=== PATIENT | male | born 1965 | race Caucasian/White ===

== ENCOUNTER 2018-03-27 02:47 | Outpatient (CLI) | payer MEDICAID, SELFPAY ==
[2018-03-27 11:38] LABS: Hemoglobin A1C 7.2 % (4.5-6.2)
[2018-03-27 11:54] LABS: Cholesterol 140 mg/dL (50-200); HDL Cholesterol 40 mg/dL (40-60); LDL CHOLESTEROL 85 mg/dL (<100); Triglyceride 116 mg/dL (30-150)
== END 2018-03-27 03:07 ==
PROVIDERS: PCP Emergency Medicine; Visit Provider Emergency Medicine
DX: E11.9 Type 2 diabetes mellitus without complications (principal)
CPT/HCPCS: 36415; 80061; 83721; 83036

== ENCOUNTER 2018-08-18 10:52 | Outpatient (CLI) | payer MEDICAID, SELFPAY ==
[2018-08-18 12:57] LABS: Hemoglobin A1C 8.2 % (4.5-6.2)
[2018-08-18 13:03] LABS: Anion Gap 5.7 mmol/L (3-11); BUN 16 mg/dL (7-18); CO2 31.3 mmol/L (21.0-32.0); CREATININE 1.09 mg/dL (0.70-1.30); Calcium 9.1 mg/dL (8.5-10.1); Chloride 102 mmol/L (98-107); Glucose 224 mg/dL (70-100); Potassium 4.3 mmol/L (3.5-5.1); Sodium 139 mmol/L (136-145)
== END 2018-08-18 11:12 ==
PROVIDERS: PCP Emergency Medicine; Visit Provider Emergency Medicine
DX: E11.9 Type 2 diabetes mellitus without complications (principal); I10 Essential (primary) hypertension
CPT/HCPCS: 36415; 80048; 83036

== ENCOUNTER 2018-10-07 22:29 | Emergency (ER) | payer MEDICAID, SELFPAY ==
[2018-10-07 22:32] VITALS: BP 159/80; PULSE 80; RESP 20; TEMP 36.7
--- NOTE | 2018-10-07 22:44 | DI.RAD_ITS ---
SYMPTOM/DIAGNOSIS: PAIN IN ANTERIOR 3RD OF FOOT AND ANKLE, CELLULITIS LEFT ANKLE AND LEFT FOOT: Three views of the ankle and three views of the foot were obtained. There is an incidental finding of a presumed bone island of the distal tibia. The ankle mortise appears fairly well maintained. Hypertrophic spurring of the Achilles attachment on the calcaneus noted. Mild degenerative changes of the mid foot and fore foot noted. No other significant bony abnormality is seen.
--- NOTE | 2018-10-07 22:46 | W.ED.GENAD ---
Discharge Plan Disposition Patient Disposition: HOME Condition: Good Discharge Details Chief Complaint: Cellulitis Clinical Impression: Cellulitis Primary Care Provider: Joshua Small ED Provider: Denys Sam Home Meds and New Rx's Prescriptions: New cephalexin [Keflex] 500 mg capsule 500 mg PO QID 10 Days Qty: 40 RF: 0 No Action Biotene Mouthwash 59 ML Btl 15 ml Mucous Membrane AC Qty: 180 RF: 12 sertraline 100 MG tablet 200 mg PO DAILY Qty: 180 RF: 3 amlodipine 5 mg tablet 5 mg PO DAILY Qty: 90 RF: 4 aspirin 325 mg tablet 325 mg PO DAILY Qty: 90 RF: 3 atorvastatin [Lipitor] 40 mg tablet 40 mg PO QPM Qty: 90 RF: 3 Blood Glucose Test strip 1 ea Miscellaneous QID Qty: 400 RF: 12 docusate sodium [Colace] 100 mg capsule 100 mg PO TID PRN PRN (Reason: constipation) Qty: 270 RF: 0 glipizide [Glucotrol XL] 5 mg tablet extended release 24hr 5 mg PO DAILY Qty: 90 RF: 3 hydrochlorothiazide 25 mg tablet 25 mg PO DAILY Qty: 90 RF: 4 lisinopril 40 mg tablet 40 mg PO DAILY Qty: 90 RF: 3 pen needle, diabetic [BD Ultra-Fine Orig Pen Needle] 29 gauge x 1/2 needle Miscellaneous QID Qty: 400 RF: 0 Novolog Flexpen U-100 Insulin 100 unit/mL insulin pen 5 unit Sub-Q 0800,1200,1700 Qty: 3 RF: 20 lancets 28 gauge misc 1 ea Miscellaneous QID Qty: 400 RF: 12 polyethylene glycol 3350 17 gram powder in packet 17 gm PO DAILY PRN PRN (Reason: constipation) Qty: 1 RF: 6 Lantus Solostar U-100 Insulin 100 unit/mL (3 mL) insulin pen 15 unit Sub-Q HS Qty: 3 RF: 20 Discharge Instructions Instructions: Cellulitis (ED) Additional Instructions: Please take the Keflex as directed. Keep your foot and ankle elevated as much as possible. It appears that you have an infection of your skin. If you notice spreading of the redness, please return immediately. If you notice any worsening of your symptoms, or any new symptoms such as vomiting, diarrhea, fever, chills, shortness of breath, chest pain, numbness, weakness, or fainting , please return immediately to the emergency department for reevaluation. Please follow up with your primary care provider as soon as possible for reassessment and reevaluation. As always, it was a pleasure participating in your medical care today. Referrals: Joshua Small, [Primary Care Provider] - Medical Decision Making This is a 53-year-old male with past medical history of diabetes, CVA with chronic left-sided weakness, who presents today for pain in his left foot his ankle and on the plantar aspect of his foot. He did have a piece of wood that fell and hit it 24 hours ago, he does demonstrate mild redness and warmth over the medial aspect of his left ankle, no evidence of pain out of proportion, cyanosis, abscess, or subcutaneous crepitus. Signs and symptoms inconsistent with next rash. Differential includes osseous abnormality versus mild cellulitis. Symptoms are inconsistent with gout. Symptoms are also consistent with a DVT with no calf tenderness, no history of clots. However ultrasound is unavailable due to the current time of night, I did offer transfer for formal ultrasonography, and the patient is declined this. Additionally I did offer her anticoagulation for the time being and the patient would like to hold off on any anticoagulation for the time being. He does take a daily aspirin. He understands risks of this decision. 11:19 PM X-ray results are negative per virtual radiology. Patient's pain is well controlled with Tylenol and Motrin. I did do a portable limited bedside ultrasound and I did not see any evidence of significant DVT, however made it clear to the patient that this is certainly not a complete evaluation he does require potential formal evaluation which she is requesting to hold off for the time being. We had a long discussion regarding red flags for which to promptly return and the patient understands signs and symptoms at this time appear clinically inconsistent with DVT or fracture, and consistent with mild cellulitis. With no significant MRSA risk factors, I feel that Keflex is reasonable to start. Additionally Bactrim would be potentially contraindicated with his ISABEL/our abuse and the concern for hyperkalemia. I have extensively reviewed the treatment plan and discharge instructions with the patient. I have addressed all patient concerns at this time. The patient was made aware of what symptoms to monitor for that would warrant a return to the emergency department. Discussed the plan with the patient, they demonstrate verbal understanding and agreement with our assessment and plan at this time. CLINICAL HISTORY: 53 years old, male; Left; Patient HX: Pain in anterior 3rd of foot and ankle, mild cellulitis TECHNIQUE: Imaging protocol: XR Left foot. Views: 3 or more views. COMPARISON: No relevant prior studies available. FINDINGS: Bones/joints: Typical for age. No evidence of acute fracture. Soft tissues: Unremarkable. IMPRESSION: No acute findings. Dictated and Authenticated by: Javier Hanna MD. Ordering:LEONARD Mcfarlane MD CLINICAL HISTORY: 53 years old, male; Left; Patient HX: Pain in anterior 3rd of foot and ankle, mild cellulitis TECHNIQUE: Imaging protocol: XR Left ankle. Views: 3 or more views. COMPARISON: No relevant prior studies available. FINDINGS: Bones/joints: Typical for age. No evidence of acute fracture. Soft tissues: Unremarkable. IMPRESSION: No acute findings. Dictated and Authenticated by: Javier Hanna MD. HPI General Date/Time Provider Initiated Documentation: 10/07/18 22:36. HPI Narrative: This is a 53-year-old male with a past medical history of a CVA with chronic left-sided weakness, diabetes mellitus, high cholesterol, hypertension, who presents today for left foot and ankle pain. The patient states that yesterday a piece of wood from his woodpile fell and hit his left foot/ankle. He has had mild pain since then, however it typically he is noticed that his notable pain when stepping down on the ball of his left foot, and he is also noticed some warmth, swelling, and redness around the left ankle. He denies any fever or chills. He denies any history of blood clots or DVTs. He does admit to a history of gout and states that this feels very different than that. He denies any other complaints or modifying factors. He denies recent antibiotic use. He denies any history of MRSA. Related Data Home Medications Medication Instructions Recorded Confirmed sertraline 200 mg PO DAILY #180 tab-cap 11/26/17 10/07/18 amlodipine 5 mg tablet 5 mg PO DAILY #90 tab-cap 03/20/18 10/07/18 aspirin 325 mg tablet 325 mg PO DAILY #90 tab 03/20/18 10/07/18 atorvastatin 40 mg tablet 40 mg PO QPM #90 tab 03/20/18 10/07/18 blood sugar diagnostic strips #400 strip 03/20/18 10/07/18 docusate sodium 100 mg capsule 100 mg PO TID PRN PRN #270 cap 03/20/18 10/07/18 glipizide ER 5 mg tablet, extended 5 mg PO DAILY #90 tab-cap 03/20/18 10/07/18 release 24 hr hydrochlorothiazide 25 mg tablet 25 mg PO DAILY #90 tab 03/20/18 10/07/18 insulin aspart U- 100 100 unit/mL 5 unit SUB-Q 0800,1200,1700 #3 ml 03/20/18 10/07/18 subcutaneous pen lancets 28 gauge #400 ea 03/20/18 10/07/18 lisinopril 40 mg tablet 40 mg PO DAILY #90 tab-cap 03/20/18 10/07/18 pen needle, diabetic 29 gauge x #400 03/20/18 10/07/18 1/2 polyethylene glycol 3350 17 gram 17 gm PO DAILY PRN PRN #1 dose pk 03/20/18 10/07/18 oral powder packet insulin glargine (U-100) 100 15 unit SUB-Q HS #3 ml 03/24/18 10/07/18 unit/mL (3 mL) subcutaneous pen cephalexin [Keflex] 500 mg PO QID 10 Days #40 cap 10/07/18 Previous Rx's Medication Instructions Recorded sertraline 200 mg PO DAILY #180 tab-cap 11/26/17 amlodipine 5 mg tablet 5 mg PO DAILY #90 tab-cap 03/20/18 aspirin 325 mg tablet 325 mg PO DAILY #90 tab 03/20/18 atorvastatin 40 mg tablet 40 mg PO QPM #90 tab 03/20/18 blood sugar diagnostic strips #400 strip 03/20/18 docusate sodium 100 mg capsule 100 mg PO TID PRN PRN #270 cap 03/20/18 glipizide ER 5 mg tablet, extended 5 mg PO DAILY #90 tab-cap 03/20/18 release 24 hr hydrochlorothiazide 25 mg tablet 25 mg PO DAILY #90 tab 03/20/18 insulin aspart U- 100 100 unit/mL 5 unit SUB-Q 0800,1200,1700 #3 ml 03/20/18 subcutaneous pen lancets 28 gauge #400 ea 03/20/18 lisinopril 40 mg tablet 40 mg PO DAILY #90 tab-cap 03/20/18 pen needle, diabetic 29 gauge x #400 03/20/18 1/2 polyethylene glycol 3350 17 gram 17 gm PO DAILY PRN PRN #1 dose pk 03/20/18 oral powder packet insulin glargine (U-100) 100 15 unit SUB-Q HS #3 ml 03/24/18 unit/mL (3 mL) subcutaneous pen cephalexin [Keflex] 500 mg PO QID 10 Days #40 cap 10/07/18 Allergies Allergy/AdvReac Type Severity Reaction Status Date / Time No Known Allergies Allergy Verified 10/07/18 22:37 General Stated Complaint: Cellulitis DOE: 4 Review of Systems Review of Systems All systems reviewed & are unremarkable except as noted in HPI and below PFSH Surgical History BACK (04/11/10) SHOULDER (02/07/10) Family History Mother No problems noted. Father No problems noted. Sister No problems noted. Sister No problems noted. Sister No problems noted. Sister No problems noted. 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 3.ENT: Atraumatic external nose and ears. Moist MM. Neck: Symmetric, trachea midline, No thyromegaly. 4.CVS: +S1/S2, No murmurs or gallops. Peripheral pulses 2+ and equal in all extremities. Brisk capillary refill in all extremities. 5.RESP: Unlabored respiratory effort. Clear to auscultation bilaterally. No wheezes rales or rhonchi 6.GI: Soft, Nontender/Nondistended, No hepatosplenomegaly. No guarding or rebound. 7.MSK: Normocephalic/Atraumatic, Extremities w/o deformity. No cyanosis or clubbing. Chronic weakness in the left upper and lower extremity. Sensation intact in lower extremity on the left and the right. Range of motion is limited secondary to the patient's chronic status. There is mild erythema over the medial aspect by the left ankle, mild warmth, minimal swelling, no pitting edema, no calf tenderness for the left or right calf. Minimal warmth on the foot, minimal redness over the plantar aspect of the foot. No evidence of significant focal lesion,, abscess, subcutaneous crepitus. Pain is not out of proportion. 8.Skin: Mild redness in the medial aspect of the foot, and no evidence of tophi. No evidence of subcutaneous crepitus. 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 Sensation grossly intact, chronic left upper and lower extremity weakness 10.Psych: (AAO) x3. Appropriate mood and affect Course Vital Signs Temperature 36.7 C 10/07/18 22:32 Pulse 80 10/07/18 22:32 Respiratory Rate 20 10/07/18 22:32 Blood Pressure 159/80 H 10/07/18 22:32 Temperature 36.7 C 10/07/18 22:32 Temperature Source Skin 10/07/18 22:32 Pulse 80 10/07/18 22:32 Respiratory Rate 20 10/07/18 22:32 Blood Pressure 159/80 H 10/07/18 22:32 Pain Level 7 10/07/18 22:32 Comment 10/07/18 22:32
[2018-10-07] MEDS: Cephalexin 500 MG CAP PO (22:50)
[2018-10-07] MEDS: Ibuprofen 800 MG TAB PO (22:50)
[2018-10-07] MEDS: Acetaminophen 500 MG TAB 1000 MG PO (22:50)
--- NOTE | 2018-10-07 23:13 | DI.VRAD_ITS ---
EXAM: XR Left Foot Complete, 3 or more Views EXAM DATE/TIME: 10/07/2018 10:46 PM CLINICAL HISTORY: 53 years old, male; Left; Patient HX: Pain in anterior 3rd of foot and ankle, mild cellulitis TECHNIQUE: Imaging protocol: XR Left foot. Views: 3 or more views. COMPARISON: No relevant prior studies available. FINDINGS: Bones/joints: Typical for age. No evidence of acute fracture. Soft tissues: Unremarkable. IMPRESSION: No acute findings. Dictated and Authenticated by: Javier Hanna MD. Ordering:LEONARD Mcfarlane MD
--- NOTE | 2018-10-07 23:13 | DI.VRAD_ITS ---
EXAM: XR Left Ankle Complete, 3 or more Views EXAM DATE/TIME: 10/07/2018 10:46 PM CLINICAL HISTORY: 53 years old, male; Left; Patient HX: Pain in anterior 3rd of foot and ankle, mild cellulitis TECHNIQUE: Imaging protocol: XR Left ankle. Views: 3 or more views. COMPARISON: No relevant prior studies available. FINDINGS: Bones/joints: Typical for age. No evidence of acute fracture. Soft tissues: Unremarkable. IMPRESSION: No acute findings. Dictated and Authenticated by: Javier Hanna MD. Ordering:LEONARD Mcfarlane MD
[2018-10-07 23:45] VITALS: BP 159/80; PULSE 80; RESP 20; O2SAT 96
== END 2018-10-07 23:33 | disposition home or self-care (01) ==
PROVIDERS: Emergency Provider Student in an Organized Health Care Education/Training Program; PCP Emergency Medicine
DX: L03.116 Cellulitis of left lower limb (principal); I69.354 Hemiplegia and hemiparesis following cerebral infarction affecting left non-dominant side; E11.9 Type 2 diabetes mellitus without complications; I10 Essential (primary) hypertension; Z79.4 Long term (current) use of insulin
CPT/HCPCS: 99284; 73610; 73630

== ENCOUNTER 2019-02-23 06:00 | Outpatient (CLI) | payer MEDICAID, SELFPAY ==
[2019-02-23 13:23] LABS: Anion Gap 11.1 mmol/L (3-11); BUN 23 mg/dL (7-18); CO2 27.9 mmol/L (21.0-32.0); CREATININE 1.46 mg/dL (0.70-1.30); Calcium 9.1 mg/dL (8.5-10.1); Chloride 99 mmol/L (98-107); Estimated GFR 50.13 (mL/min/1.73m2); Glucose 278 mg/dL (70-100); Potassium 3.9 mmol/L (3.5-5.1); Sodium 138 mmol/L (136-145)
[2019-02-23 16:14] LABS: Calculated LDL 45 mg/dL; Cholesterol 142 mg/dL (50-200); HDL Cholesterol 30 mg/dL (40-60); Triglyceride 338 mg/dL (30-150)
[2019-02-24 09:46] LABS: PSA, Diagnostic 0.2 ng/ml (0-3.5)
== END 2019-02-23 06:20 ==
PROVIDERS: PCP Emergency Medicine; Visit Provider Emergency Medicine
DX: E11.9 Type 2 diabetes mellitus without complications (principal); C61 Malignant neoplasm of prostate; R35.8 Other polyuria
CPT/HCPCS: 36415; 80048; 80061; 83036; 84153

== ENCOUNTER 2019-03-17 12:47 | Outpatient (CLI) | payer MEDICAID, SELFPAY ==
--- NOTE | 2019-03-17 14:22 | W.PREOPHP ---
Assessment and Plan Assessment and plan (1) Right carpal tunnel syndrome: Status: Acute Assessment and plan: Plan: Educated patient on surgery covering surgical technique, recovery process, benefits and risks including but not limited to risk of infection, blood clot, damage to soft tissue/blood vessels/nerves in detail. After discussion patient gives verbal understanding of risks and elects to proceed with scheduling surgery. Patient had opportunity to have questions answered to their satisfaction. They will contact office if issues arise. Patient will continue to be scheduled for right ECTR with Dr. Kim. History of Present Illness Narrative: Mr. Pak is a 53-year-old male who presents to clinic for pre-operative visit for scheduled right ECTR. Patient suffered a stroke that affected his left side. Due to his stroke he uses his right hand for most activity. Has been experiencing numbness and tingling in his right hand for the last 6 months. 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 Denies trauma to the right hand. He had not tried nighttime bracing, however he did have nerve conduction studies which as per Elsy Mojica PUBLIC HEALTH ADMINISTRATOR note showed severe right carpal tunnel syndrome. Due to his impairment and severe symptoms he was offered surgical intervention and elected to proceed. Pertinent Surgical Information Denies past medical history of: cardiac issues, angina, asthma, COPD, sleep apnea, renal issues, liver issues, hepatitis, gastrointestinal issues, ulcers, bleeding disorders, seizures, migraines, autoimmune disorders, thyroid issues. Denies prior complications from surgery or anesthesia. Review of Systems Constitutional Constitutional: Denies fever(s), Denies frequent falls and Denies headache(s) Eyes Eyes: Denies change in vision ENT Ears, Nose, Mouth, and Throat: Denies dizziness, Denies ear discharge, Denies headache(s), Denies epistaxis, Denies nasal discharge and Denies sore throat Cardiovascular Cardiovascular: Denies chest pain, Denies rapid heart rate, Denies irregular heart rhythm, Denies dyspnea, Denies dyspnea on exertion, Denies orthopnea, Denies paroxysmal nocturnal dyspnea and Denies slow heart rate Respiratory Respiratory: Denies cough, Denies dyspnea, Denies dyspnea on exertion and Denies wheezing Gastrointestinal Gastrointestinal: Denies abdominal pain, Denies melena, Denies hematochezia, Denies constipation, Denies diarrhea, Denies nausea and Denies vomiting Genitourinary Genitourinary: Denies hematuria, Denies dysuria and Denies urinary urgency Musculoskeletal Musculoskeletal: Reports as per HPI, Reports numbness and Reports tingling Neurologic Neurologic: Denies dizziness, Denies frequent falls, Denies headache(s), Reports numbness and Reports tingling Psychiatric Psychiatric: Reports anxiety and Reports depression Allergic/Immunologic Allergic/Immunologic: Denies wheezing [facility] Medical History (Updated 03/17/19 @ 14:31 by Reva Stephen) Anxiety (Chronic) Cerebrovascular accident (CVA) (Chronic 03/19/17) Left hemiparesis 01/23 Depression (Chronic) Essential hypertension (Acute) History of alcoholism (Acute) and drug abuse; at age 28-30 Hyperlipidemia (Acute) Type 2 diabetes mellitus (Chronic) Surgical History (Updated 03/17/19 @ 14:30 by Reva Stephen) History of shoulder surgery (Inactive) One right shoulder Two left shoulder History of spinal surgery (Inactive) Social History (Updated 03/17/19 @ 14:33 by Reva Stephen) Smoking/Tobacco Use Status: Former Tobacco Use Alcohol Intake: former Drug use: Never Substance use type: does not use Number of Children: 8 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 Current gender identity: male Do you feel safe at home: Yes Do you feel safe in your relationship?: Yes Meds Home Medications and Allergies Home Medications Medication Instructions Recorded Confirmed Type Biotene Mouthwash 15 ml MUCOUS MEMBRANE AC #180 03/05/17 03/17/19 Clinic bottle amlodipine 5 mg tablet 5 mg PO DAILY #90 tab-cap 03/20/18 03/17/19 Rx aspirin 325 mg tablet 325 mg PO DAILY #90 tab 03/20/18 03/17/19 Rx atorvastatin 40 mg tablet 40 mg PO QPM #90 tab 03/20/18 03/17/19 Rx blood sugar diagnostic #400 strip 03/20/18 03/17/19 Rx docusate sodium 100 mg capsule 100 mg PO TID PRN PRN #270 cap 03/20/18 03/17/19 Rx glipizide 5 mg tablet, extended 5 mg PO DAILY #90 tab-cap 03/20/18 03/17/19 Rx release 24 hr hydrochlorothiazide 25 mg tablet 25 mg PO DAILY #90 tab 03/20/18 03/17/19 Rx lancets 28 gauge #400 ea 03/20/18 03/17/19 Rx lisinopril 40 mg tablet 40 mg PO DAILY #90 tab-cap 03/20/18 03/17/19 Rx pen needle, diabetic 29 gauge x #400 03/20/18 03/17/19 Rx 1/2 polyethylene glycol 3350 17 gram 17 gm PO DAILY PRN PRN #1 dose pk 03/20/18 03/17/19 Rx oral powder packet sertraline 100 mg tablet 200 mg PO DAILY #180 tab-cap 12/02/18 03/17/19 Rx insulin aspart U-100 100 unit/mL 5 unit SUB-Q 0800,1200,1700 #15 ml 02/23/19 03/17/19 Rx (3 mL) subcutaneous pen insulin glargine 100 unit/mL (3 15 unit SUB-Q HS #15 ml 02/23/19 03/17/19 Rx mL) subcutaneous pen Allergies Allergy/AdvReac Type Severity Reaction Status Date / Time No Known Allergies Allergy Verified 03/17/19 14:34 Exam Const General: cooperative and no acute distress [facility] Head: normal to inspection, normocephalic and atraumatic Ears: external ears normal General nose exam: external nose normal and no nasal discharge Face and sinus: face symmetric Mouth: oral mucosae normal, lip normal, tongue normal and moist mucous membranes Teeth and gingiva: poor dentition (patient has a few teeth remaining) Throat: posterior oropharynx normal Eyes General: appearance normal, both eyes and all related structures Pupils: PERRL EOM: EOM intact bilaterally Neck Neck: trachea midline Carotids: normal carotid upstroke Lymphatic: no lymphadenopathy noted Resp Effort & Inspection: normal respiratory effort and able to speak in complete sentences Auscultation: clear to auscultation bilaterally, no rales, no rhonchi and no wheezes Cardio Heart Sounds: S1 normal, S2 normal and no murmurs Pulses: radial pulses present bilaterally Skin General skin exam: no rashes or lesions noted
== END 2019-03-17 13:07 ==
PROVIDERS: PCP Emergency Medicine; Visit Provider Student in an Organized Health Care Education/Training Program
DX: G56.01 Carpal tunnel syndrome, right upper limb (principal); I10 Essential (primary) hypertension; Z01.818 Encounter for other preprocedural examination
CPT/HCPCS: NC

== ENCOUNTER 2019-03-23 12:00 | Day surgery (SDC) | payer MEDICAID, SELFPAY ==
[2019-03-23 12:30] VITALS: BP 144/94; PULSE 75; RESP 16; TEMP 35.9; O2SAT 98
[2019-03-23] MEDS: Lactated Ringers 1,000 ML 80 ML IV (13:07)
[2019-03-23] MEDS: ceFAZolin 2 GM/50 ML BAG IVPB (13:50)
--- NOTE | 2019-03-23 13:52 | PDOC.DSDIS_ITS ---
Discharge Plan Disposition Patient Disposition: HOME Condition: Good Discharge Details Reason For Visit: Right ECTR Attending Provider: Steve Kim Primary Care Provider: Joshua Small Home Meds and New Rx's Prescriptions: New acetaminophen 500 mg tablet 500 mg PO Q6H PRNQty: 30 RF: 0 ibuprofen 600 mg tablet 600 mg PO TID PRN (Reason: pain) Qty: 30 RF: 0 Continued Novolog Flexpen U-100 Insulin 100 unit/mL (3 mL) insulin pen 5 unit Sub-Q 0800,1200,1700 Qty: 15 RF: 20 Lantus Solostar U-100 Insulin 100 unit/mL (3 mL) insulin pen 15 unit Sub-Q HS Qty: 15 RF: 20 Biotene Mouthwash 59 ML Btl 15 ml Mucous Membrane AC Qty: 180 RF: 12 amlodipine 5 mg tablet 5 mg PO DAILY Qty: 90 RF: 4 aspirin 325 mg tablet 325 mg PO DAILY Qty: 90 RF: 3 atorvastatin [Lipitor] 40 mg tablet 40 mg PO QPM Qty: 90 RF: 3 (DME) Blood Glucose Test strip 1 ea Miscellaneous QID Qty: 400 RF: 12 docusate sodium [Colace] 100 mg capsule 100 mg PO TID PRN PRN (Reason: constipation) Qty: 270 RF: 0 glipizide [Glucotrol XL] 5 mg tablet extended release 24hr 5 mg PO DAILY Qty: 90 RF: 3 hydrochlorothiazide 25 mg tablet 25 mg PO DAILY Qty: 90 RF: 4 lisinopril 40 mg tablet 40 mg PO DAILY Qty: 90 RF: 3 (DME) pen needle, diabetic [BD Ultra-Fine Orig Pen Needle] 29 gauge x 1/2 needle Miscellaneous QID Qty: 400 RF: 0 (DME) lancets 28 gauge misc 1 ea Miscellaneous QID Qty: 400 RF: 12 polyethylene glycol 3350 17 gram powder in packet 17 gm PO DAILY PRN PRN (Reason: constipation) Qty: 1 RF: 6 sertraline 100 mg tablet 200 mg PO DAILY Qty: 180 RF: 3 Discharge Instructions Stand Alone Forms: Julio Valerio Tunnel Release Referrals: Steve Kim MD [ [facility] STAFF PHYSICIAN] - Activity:: Activity as Tolerated Remove Dressings/Wound Care:: 48 hours Shower/Bathe:: 48 hours Diet:: As Tolerated Discharge Orders Discharge Orders: Discharge Order (Routine); Ordered 03/23/19 Ordered By: Albert Pham DS: Diagnosis Discharge Diagnosis (1) Right carpal tunnel syndrome: Status: Acute
[2019-03-23] MEDS: Lidocaine 1% Multi-Dose 50 ML VIAL (14:00)
[2019-03-23] MEDS: Sodium Bicarbonate 50 MEQ/50 ML VIAL (14:00)
[2019-03-23 14:55] VITALS: BP 145/86; PULSE 72; RESP 16; TEMP 36.2; O2SAT 96
--- NOTE | 2019-03-24 06:12 | W.PM.OP ---
Date of service: 03/23/19 Time of Service: 12:13 Operative Note Operative Note DATE OF PROCEDURE: 03/23/19 PRE-OP DIAGNOSIS: Right carpal tunnel syndrome POST-OP DIAGNOSIS: same PROCEDURE: Right Endoscopic Carpal Tunnel Release SURGEON: Steve Kim ANESTHESIA: MAC ESTIMATED BLOOD LOSS: 0 PATHOLOGY: none sent TOURNIQUET TIME: 5 COMPLICATIONS: None Patient was transported to: same day Patient's condition: stable Indications: I have seen Shadi in clinic for symptoms of carpal tunnel syndrome. The numbness, tingling, and pain limited function. Clinical exam findings [with nerve conduction tests ]confirmed the diagnosis of carpal tunnel syndrome. Nonoperative measures such as bracing, time, activity modifications had been tried but disability and pain persisted. I discussed carpal tunnel release with the patient. I reviewed the risks of the procedure to include, but not limited to, bleeding, infection, pain, stiffness, incomplete release, damage to nerves or vessels, persistent numbness, recurrence. Despite these risks, the patient elected to proceed. Findings: There was tightened carpal tunnel. This was dilated and released successfully with the endoscopic with increased space within the tunnel. The antebrachial fascia was released proximally freeing the median nerve at the wrist. Procedure Description: Shadi was greeted in the preoperative holding area where the correct side was identified and marked. The consent was reviewed with the patient and signed. The history and physical was updated. All questions were answered. He was taken back to the operating room. The patient was placed into the supine position on the operating room table with the right arm on an arm board. A nonsterile tourniquet was placed high onto the arm. All bony prominences were well padded. Prophylactic antibiotics in the form of cefazolin were administered. The right arm was then prepped with Chloraprep and draped in a standard fashion with stockinette and extremity drape. A timeout to confirm correct identity, side and site, procedure, allergies, anesthesia, and medical concerns was performed. The surgical site was marked in the volar wrist creases in line with the radial border of the fourth ray. This area was anesthetized with approximately 6cc of 1% Lidocaine. The limb was then exsanguinated with an Esmarch. The skin was incised with a 15 blade, approximately 1cm. The skin only was cut and the deeper tissue was dissected bluntly with a tenotomy scissor, avoiding passing nerve and venous structures. The fascia was penetrated and opened bluntly. A two-prong skin hook was placed under this proximal fascial edge. A series of hamate finders were used to identify and dilate the carpal tunnel. Synovial elevator was used to free synovial attachments to the underside of the transverse carpal ligament. My thumb was kept in the palm to opal the distal extent of the carpal tunnel and correctly position the hand. The Microaire endoscope was inserted without difficulty and without resistance. Excellent visualization showed horizontally running fibers of the transverse carpal ligament (TCL). The distal extent of the TCL was visualized and the end of the scope palpated with the thumb. The blade was elevated and withdrawn from distal to proximal. The TCL was split into two flaps. The endoscope was reinserted to confirm complete release and any remnant ligament was incised. The scope was withdrawn and the proximal aspect of the carpal tunnel was grossly inspected and appeared release with the median nerve visible. The antebrachial fascia at the level of the wrist was then freed from the overlying skin and then the underlying median nerve with blunt dissection. This was transected longitudinally for about 3cm proximal to the wrist incision. The wound was then irrigated with easy flow of irrigant distally and proximally. The incision was closed with a single 4-0 Nylon suture. The wound was dressed with Xeroform, Gauze, Kerlix and Juan Antonio. The tourniquet was deflated with the initial dressing and held with some pressure. Blood flow returned easily to all digits with capillary refill less than 2 seconds. The patient tolerated the procedure well and was returned to the Same Day Surgery area in a stable condition suffering no known complication.
== END 2019-03-23 15:15 | disposition home or self-care (01) ==
PROVIDERS: PCP Emergency Medicine; Visit Provider Student in an Organized Health Care Education/Training Program
PROC: 01N54ZZ Release Median Nerve, Percutaneous Endoscopic Approach (ICD-10-PCS; CPT 29848; principal; 2019-03-23 13:00)
DX: G56.01 Carpal tunnel syndrome, right upper limb (principal)
CPT/HCPCS: 29848; J0690; L3650

== ENCOUNTER 2019-04-29 09:30 | Outpatient (CLI) | payer MEDICAID, SELFPAY ==
--- NOTE | 2019-04-29 09:04 | DI.RAD_ITS ---
EXAM: XR SHOULDER RT COMPLETE 2+V INDICATION: right shoulder pain. COMPARISON: RIGHT SHOULDER COMPLETE from 11/26/2010 TECHNIQUE: 2D digital imaging was performed. FINDINGS: There are degenerative changes seen at the acromioclavicular joint. The glenohumeral joint appears w ell maintained. The bones are intact. The bones are normally mineralized. The soft tissues are unr emarkable. IMPRESSION: Mild degenerative changes of the right AC joint.
== END 2019-04-29 09:50 ==
PROVIDERS: PCP Emergency Medicine; Visit Provider Physician Assistant
DX: M25.511 Pain in right shoulder (principal); M19.011 Primary osteoarthritis, right shoulder
CPT/HCPCS: 73030

== ENCOUNTER 2019-06-10 02:00 | Outpatient (CLI) | payer MEDICAID, SELFPAY ==
--- NOTE | 2019-06-10 14:45 | DI.MRI_ITS ---
EXAM: MR UPPER JOINT RT WO CLINICAL HISTORY: continued right shoulder pain and weakness. TECHNIQUE: Multiplanar multisequence MRI was performed. COMPARISON: MRI - L UPPER JOINT WO CONT from 10/05/2009 XR SHOULDER RT COMPLETE 2+V from 04/29/2019 FINDINGS: MR examination shoulder was performed according to the usual protocol. There is a moderate-sized roshni nt effusion. There are hypertrophic degenerative changes of the acromioclavicular joint and mild spurring of the i nferior surface of the acromion. There appears to be fraying of the glenoid labrum, particularly an teriorly. There is marginal osteophyte formation of the humeral head and the glenoid. There are sub chondral cysts of the greater tuberosity of the humerus. Supraspinatus tendon shows a full thickness tear which on sagittal images measures up to about 2.5 cm in width and the tear probably extends into Cherie insertional portions of infraspinatus and subscapul joelle as well. There is retraction of the supraspinatus by approximately 1 cm. Tendinosis of infrasp inatus, subscapularis and supraspinatus noted as well. Biceps tendon appears normally positioned in the bicipital groove and there is no evidence of a bicep s tendon tear. IMPRESSION: Large full-thickness rotator cuff tear predominantly involving supraspinatus with supraspinatus retra cted by about 1 cm. The tear involves adjacent portions of subscapularis, supraspinatus and infraspi natus near the humeral attachment. Marked degenerative changes and labral fraying noted as well.
== END 2019-06-10 02:20 ==
PROVIDERS: PCP Emergency Medicine; Visit Provider Physician Assistant
DX: M75.81 Other shoulder lesions, right shoulder (principal); M25.511 Pain in right shoulder; M75.101 Unspecified rotator cuff tear or rupture of right shoulder, not specified as traumatic; M19.011 Primary osteoarthritis, right shoulder
CPT/HCPCS: 73221

== ENCOUNTER 2019-06-25 07:00 | Outpatient (CLI) | payer MEDICAID, SELFPAY ==
[2019-06-25 12:40] LABS: CREATININE 1.26 mg/dL (0.70-1.30); Chloride 98 mmol/L (98-107); Estimated GFR 59.42 (mL/min/1.73m2); Glucose 343 mg/dL (74-106); Potassium 4.2 mmol/L (3.5-5.1); Sodium 137 mmol/L (136-145)
[2019-06-25 13:09] LABS: BUN 18 mg/dL (7-18)
[2019-06-25 13:10] LABS: Hemoglobin A1C 8.7 % (3.8-5.6)
== END 2019-06-25 07:20 ==
PROVIDERS: PCP Emergency Medicine; Visit Provider Emergency Medicine
DX: E11.9 Type 2 diabetes mellitus without complications (principal); I10 Essential (primary) hypertension
CPT/HCPCS: 80048; 83036

== ENCOUNTER 2019-09-28 10:07 | Outpatient (CLI) | payer MEDICAID, SELFPAY ==
--- NOTE | 2019-09-28 08:45 | DI.NM_ITS ---
APPROVED REPORT Exam: Pharmacologic Patient Location: Out-Patient Room/Bed: Stress Nurse: Kandace Davidson RN BMI: 30.07 Baseline Rhythm: Sinus Rhythm Indications: Worsening exertional dyspnea. Medical History Medical History: Diabetes, Stroke/TIA, HTN, Hyperlipidemia, Sleep Apnea Cardiac Medications: Aspirin. Atorvastatin. Amlodipine. Lisinopril. Glipizide. Novalog insulin. Lantu s insulin. Hydrocholorothiazide., Allergies: No known drug allergies Cardiac Risk Factors: HTN, Hyperlipidemia, Diabetes (insulin), CVD Pretest Chest Pain Characteristics: Dyspnea Exercise History: Physically active Physical Disabilities: Legs Lung Sounds: Clear to auscultation Heart Sounds: Regular Stress Test Details Test: Pharmacologic stress testing performed using 0.4 mg of regadenoson per 5 mL given IV over 10 s econds. Nuclear Acquisition: Rest Tc-99m/Stress Tc-99m 1 day Rest Isotope: Tc-99m Sestamibi. Dose: 9.8 Date: 09/28/2019 Injection Time: 0840 Stress Isotope: Tc-99m Sestamibi. Dose: 32.0 Date: 09/28/2019 Injection Time: 1105 HR Resting HR Supine: 72 bpm Max Heart Rate (APMHR): 164 bpm Target HR (85% APMHR): 139 bpm Max HR Achieved: 90 bpm % of APMHR: 54 Recovery HR: 80 bpm Comment: Regadeneson test. BP Resting BP Supine: 144/90 mmHg Comment: Regadeneson test. ECG Resting ECG: Sinus Rhythm Stress ECG: Sinus Rhythm Recovery ECG: Sinus Rhythm Clinical Stress Symptoms: No symptoms experienced post Regadeneson injection Exercise duration: 6 min43 sec Stress ECG Conclusion 1. Pharmacological stress test. 2. Patient no symptoms suggestive of ischemia. 3. EKG portion of this exam was nondiagnostic. Stress Test Summary STAGE HR BP Symptoms NOTES Supine 72 144/90 1 min post Lexiscan injection 90 142/80 3 min post Lexiscan injection 85 150/86 6 min post Lexiscan injection 80 150/84 MPI Conclusion Fraction with stress was 52%. There were no wall motion abnormalities. There is no inducible ischemia on the imaging portion of this exam. This represents a normal SPECT stress test.
[2019-09-28] MEDS: Regadenoson 0.4 MG/5 ML SYR IVP (10:46)
== END 2019-09-28 10:27 ==
PROVIDERS: PCP Emergency Medicine; Visit Provider Emergency Medicine
DX: R06.09 Other forms of dyspnea (principal); I10 Essential (primary) hypertension; E78.5 Hyperlipidemia, unspecified; E11.9 Type 2 diabetes mellitus without complications; Z79.4 Long term (current) use of insulin
CPT/HCPCS: 78452; 93017; J2785

== ENCOUNTER 2019-12-01 09:06 | Outpatient (CLI) | payer MEDICAID, SELFPAY | END 2019-12-01 09:26 | PROVIDERS: PCP Emergency Medicine; Visit Provider Internal Medicine Cardiovascular Disease | DX: R06.09 Other forms of dyspnea (principal); R01.2 Other cardiac sounds; I49.3 Ventricular premature depolarization | CPT/HCPCS: 93225 ==

== ENCOUNTER 2019-12-01 09:55 | Outpatient (CLI) | payer MEDICAID, SELFPAY | END 2019-12-01 10:15 | PROVIDERS: PCP Emergency Medicine | DX: R06.09 Other forms of dyspnea (principal) ==

== ENCOUNTER 2019-12-03 12:05 | Outpatient (CLI) | payer MEDICAID, SELFPAY | END 2019-12-03 12:25 | PROVIDERS: PCP Emergency Medicine | DX: R06.09 Other forms of dyspnea (principal) | CPT/HCPCS: 93226 ==

== ENCOUNTER 2019-12-28 04:14 | Outpatient (CLI) | payer MEDICAID, SELFPAY ==
[2019-12-28 12:32] LABS: Anion Gap 9.5 mmol/L (3-11); BUN 26 mg/dL (7-18); CO2 26.5 mmol/L (21.0-32.0); CREATININE 1.28 mg/dL (0.70-1.30); Calcium 9.4 mg/dL (8.5-10.1); Chloride 101 mmol/L (98-107); Estimated GFR 58.13 (mL/min/1.73m2); Glucose 140 mg/dL (74-106); Potassium 4.2 mmol/L (3.5-5.1); Sodium 137 mmol/L (136-145)
== END 2019-12-28 04:34 ==
PROVIDERS: PCP Emergency Medicine; Visit Provider Student in an Organized Health Care Education/Training Program
DX: I10 Essential (primary) hypertension (principal); E11.9 Type 2 diabetes mellitus without complications
CPT/HCPCS: 36415; 80048; 83036

== ENCOUNTER 2019-12-30 00:13 | Outpatient (CLI) | payer MEDICAID, SELFPAY ==
--- NOTE | 2019-12-03 13:48 | W.HOLTRPT ---
Date of service: 12/03/19 Time of Service: 13:49 Holter Monitor Report Holter Monitor Note: There is a 24-hour Holter monitor ordered for indication of dyspnea on exertion. ?The patient was in normal sinus rhythm for the majority of the recording with an average heart rate of 84 bpm. ?There were 0 episodes of supraventricular tachycardia and 0 episodes of ventricular tachycardia. ?There were rare (0.5%) single ventricular ectopic beats. ?There are no episodes of atrial fibrillation, no pauses greater than 3 seconds and no evidence of high degree heart block.
--- NOTE | 2019-12-30 08:15 | DI.US_ITS ---
APPROVED REPORT EXAM: Comprehensive 2D, Doppler, and color-flow Echocardiogram Patient Location: Out-Patient Sericulturist: Kirsten Bansal RDCS (AE) Indications: BUNDY Other Information Study Quality: Adequate Conclusion Left Ventricle : The left ventricle is normal size. The left ventricular systolic function is normal. The left ventricular ejection fraction is within the normal range. There is normal left ventricular wall thickness. There is normal LV segmental wall motion. The left ventricular diastolic function is normal. LVEF is 50-55%. Right Ventricle : The right ventricle is normal size. The right ventricular systolic function is norm al. The RVSP is 20mmHg. Atria : The left atrium size is normal. The right atrium size is normal. Valves: There are no hemodynamically significant valvular lesions Great Vessels : The aortic root is normal in size. The ascending aorta is moderately dilated. Aortic arch is normal in caliber. IVC is normal in size and collapses >50% with inspiration. Compared to study from 01/20/2017, there is no significant change. Wall motion Left Ventricle The left ventricle is normal size. The left ventricular systolic function is normal. The left ventric ular ejection fraction is within the normal range. There is normal left ventricular wall thickness. T here is normal LV segmental wall motion. The left ventricular diastolic function is normal. There is no ventricular septal defect visualized. LVEF is 50-55%. Right Ventricle The right ventricle is normal size. The right ventricular systolic function is normal. The RVSP is 20 mmHg. Atria The left atrium size is normal. The right atrium size is normal. The interatrial septum is intact wit h no evidence for an atrial septal defect. Aortic Valve The Aortic valve is sclerotic. Aortic valve is trileaflet. There is no aortic valvular stenosis. No a ortic regurgitation is present. Mitral Valve The mitral valve is normal in structure. No evidence of mitral valve stenosis. Trace mitral regurgita tion. Tricuspid Valve The tricuspid valve is normal in structure. There is no tricuspid valve stenosis. Trace tricuspid reg urgitation. Pulmonic Valve The pulmonary valve is normal in structure. There is no pulmonic valvular stenosis. Trace pulmonic re gurgitation. Great Vessels The aortic root is normal in size. The ascending aorta is moderately dilated. Aortic arch is normal i n caliber. IVC is normal in size and collapses >50% with inspiration. Pericardium There is no pericardial effusion. 2D Dimensions IVSD d PLAX 1.02 cm M: 0.6-1.2 LV Vol A2C d MOD 117.8 mL LVPW d PLAX 1.00 cm M: 0.6 - 1.2 LV Vol A4C d MOD 126.6 mL LVID d PLAX 4.73 cm M: 4.2 - 5.8 LA vol/ BSA A2C s A-L 28.2 mL/m2 LVDs 3.45 cm M: 2.5 - 4.0 LA vol/ BSA A4C s A-L 21.0 mL/m2 Ao Root d 2.82 cm M: 3.1 - 3.7 LA Vol/ BSA Biplane s A-L 24.9 mL/m2 RA Area A4C 15.40 cm2 LA Area A4C s MOD 17.65 cm2 RA Vol/ BSA A4C s A-L 18.3 mL/m2 LA Area A2C s MOD 19.97 cm2 Ao Asc Diam d 3.97 cm M: 2.6 - 3.4 LV EF A4C MOD 53.9 % LV EF Teichholz 52.8 % LV EF A2C MOD 51.1 % LVEF (Coker's) 52.20 % M: 52 - 72 LV EF Biplane MOD 52.2 % LV Volume 88.01 mL M: 62 - 150 SV 63.63 mL LV Volume Index 39.11 mL/m2 M: 34 - 74 SV Index 28.25 mL/m2 LV Vol Biplane MOD 121.9 mL FS 27.05 % M-Mode TAPSE 2.23 cm (M/F) >1.7 LV Diastology MV E' medial 0.073 (>0.07 m/s) E/A Ratio 1.0 LV E/e MED 10.05 (<14) MV E Vmax 0.73 (0.4-1.3 m/s) MV E' lateral 0.093 (>0.1 m/s) MV A Vmax 0.70 (0.4-1.3 m/s) LV E/e LAT 7.85 (<14) MV E/A Ratio 0.99 MV E/E' medial 10.08 MV E/E' lateral 7.87 Aortic Valve LVOT Area 3.21 cm2 AoV Area Vmax 2.69 cm2 LVOT Vmax 0.97 m/s AoV Area/ BSA (Vmax) 1.19 cm2/m2 LVOT Mean Zane. 0.58 m/s RODNEY Mean Zane. 2.34 cm2 LVOT Peak Grad 3.8 mmHg RODNEY Mean Zane. Index 1.04 cm2/m2 LVOT Mean Grad 1.7 mmHg LVOT VTI 0.211 m LVOT Diam s 2.00 cm AoV Vmax 1.16 m/s Velocity Ratio 0.83 AoV Mean Zane. 0.80 m/s AoV Peak Grad 5.4 mmHg LVOT SV 67.73 mL AoV Mean Grad 2.8 mmHg AoV VTI 0.234 m AoV Area VTI 2.89 cm2 AoV Area/ BSA (VTI) 1.29 cm/m2 Mitral Valve MV DT 228 (160-240 msec) MV PHT 66 msec MV Area PHT 3.33 cm2 Pulmonary Valve PV Vmax 0.98 (0.5-1.5 m/s) RVOT Peak Gr. 1.64 mmHg PV Peak Grad 3.8 mmHg RVOT Mean Gr. 0.75 mmHg PV Mean Grad 2.0 mmHg RVOT VTI 0.127 m PV VTI 0.180 m RVOT Vmax 0.64 m/s Tricuspid Valve TR Peak Grad 16.4 mmHg TR Vmax 2.03 m/s RA Pressure 3.00 mmHg RVSP (TR) 19.5 mmHg
--- NOTE | 2019-12-30 13:22 | DI.RAD_ITS ---
EXAM: XR CHEST 2V PA LATERAL CLINICAL HISTORY: DYSPNEA ON EXERTION, R06.00 TECHNIQUE: 2D digital imaging was performed. COMPARISON: No exams were available for comparison FINDINGS: MEDIASTINUM: Normal. HEART: Normal. PULMONARY VASCULATURE: Normal. LUNGS: Clear. PLEURAL SPACE: No pleural effusion or pneumothorax. BONE:Degenerative changes in the spine. OTHER FINDINGS:Normal. IMPRESSION: No acute pulmonary findings. DATA REPOSITORY: RADIATION DOSE DELIVERED:
== END 2019-12-30 00:33 ==
PROVIDERS: PCP Emergency Medicine; Visit Provider Internal Medicine Cardiovascular Disease
DX: R06.09 Other forms of dyspnea (principal)
CPT/HCPCS: 71046; 93306

== ENCOUNTER 2020-02-23 16:08 | Emergency (ER) | payer MEDICAID, SELFPAY ==
[2020-02-23] VITALS (30 sets, daily range): BP systolic 127–157; BP diastolic 64–91; PULSE 52–77; RESP 13–26; TEMP 36.8; O2SAT 94–98
--- NOTE | 2020-02-23 16:00 | RT.EKG_ITS ---
APPROVED REPORT Exam: Resting ECG Patient Location: E HR:74 bpm ECG Measurements Heart Rate 74 AXIS [place] 177 P 49 QRSd 91 QRS 14 QT 401 T 37 QTc 445 Conclusion Sinus rhythm...normal P axis, V-rate 60- 99 I have reviewed and interpreted ECG and agree with software generated interpretation.
--- NOTE | 2020-02-23 16:17 | W.ED.GENAD ---
Discharge Plan Disposition Patient Disposition: HOME Condition: Improving Discharge Details Clinical Impression: Vertigo, Generalized weakness, Dehydration Primary Care Provider: Joshua Small ED Provider: Ana Laura Fair Home Meds and New Rx's Prescriptions: New meclizine 12.5 mg tablet 12.5 mg PO TID PRN (Reason: dizziness) Qty: 14 RF: 0 Continued docusate sodium [Colace] 100 mg capsule 100 mg PO TID PRN PRN (Reason: constipation) Qty: 270 RF: 0 tamsulosin [Flomax] 0.4 mg capsule 0.8 mg PO DAILY Qty: 180 RF: 3 metformin 1,000 mg tablet 1,000 mg PO BID Qty: 180 RF: 3 glipizide [Glucotrol XL] 5 mg tablet extended release 24hr 5 mg PO DAILY Qty: 90 RF: 3 Biotene Mouthwash 59 ML Btl 15 ml Mucous Membrane AC Qty: 180 RF: 12 (DME) Blood Glucose Test strip 1 ea Miscellaneous QID Qty: 400 RF: 12 polyethylene glycol 3350 17 gram powder in packet 17 gm PO DAILY PRN PRN (Reason: constipation) Qty: 1 RF: 6 aspirin 325 mg tablet 325 mg PO DAILY Qty: 90 RF: 3 (DME) lancets 28 gauge misc 1 ea Miscellaneous QID Qty: 400 RF: 12 amlodipine 5 mg tablet 5 mg PO DAILY Qty: 90 RF: 4 atorvastatin [Lipitor] 40 mg tablet 40 mg PO QPM Qty: 90 RF: 3 hydrochlorothiazide 25 mg tablet 25 mg PO DAILY Qty: 90 RF: 4 lisinopril 40 mg tablet 40 mg PO DAILY Qty: 90 RF: 3 sertraline 100 mg tablet 200 mg PO DAILY Qty: 180 RF: 3 acetaminophen 500 mg tablet 500 mg PO Q6H PRNQty: 30 RF: 0 ibuprofen 600 mg tablet 600 mg PO TID PRN (Reason: pain) Qty: 30 RF: 0 Discharge Instructions Instructions: Dehydration (ED), Vertigo (ED), Weakness (ED) Additional Instructions: Drink plenty of fluids and get plenty of rest. Take meclizine as needed directed for dizziness. Follow-up with your primary care doctor in 1 week. Return to the emergency department with any worsening or new concerning symptoms. Discharge Data Discharge Physician: Ana Laura Fair Medical Decision Making 1610 -- 54-year-old male with a history of hypertension, hyperlipidemia, diabetes, anxiety, depression, CVA with chronic left-sided weakness presents for episode of dizziness and headache that started after bending over at work today. EKG notes rate of 74, sinus no acute ST-T wave ischemic changes. Patient symptoms have significantly improved. BP mildly hypertensive, otherwise vitals within normal limits. Patient has chronic left upper and lower extremity weakness which is at his baseline. Minimal nystagmus. Differential diagnosis includes BPPV, dehydration, electrolyte abnormality, arrhythmia, CVA. Will place an IV, bolus IV fluids, screening labs, CTA head and neck and chest x-ray and give meclizine and Zofran and reassess. 183 --labs and imaging reviewed. Troponin negative. Normal white blood cell count. CTA head and neck negative. Patient reassessed and he denies any acute complaints and feels good to go home. Advised to follow up with the primary care doctor for re-evaluation. Usual and customary return precautions given prior to discharge. Medical Records Medical records reviewed: Yes I reviewed the patient's medical records. Imaging Data Radiologic Study: Radiologist's impression: XR Chest, 2 Views Exam date and time: 02/23/2020 5:24 PM Age: 54 years old Clinical indication: Other: Dizziness TECHNIQUE: Imaging protocol: XR of the chest Views: 2 views. COMPARISON: CR XR CHEST 2V PA LATERAL 12/30/2019 1:16 PM FINDINGS: Lungs: Unremarkable. No consolidation. Pleural space: Unremarkable. No pleural effusion. No pneumothorax. Heart/Mediastinum: Unremarkable. No cardiomegaly. Bones/joints: Unremarkable. IMPRESSION: No acute findings. CT Angiography Head With Contrast Exam date and time: 02/23/2020 4:54 PM Age: 54 years old Clinical indication: Dizziness and giddiness; Patient HX: H/o CVA TECHNIQUE: Imaging protocol: Computed tomography angiography of the head with intravenous contrast. 3D rendering (Not supervised by radiologist): MIP and/or 3D reconstructed images were created by the technologist. COMPARISON: CTA BRAIN AND NECK 01/20/2017 5:15 PM FINDINGS: ANTERIOR CIRCULATION: Right internal carotid artery: Unremarkable. Intracranial segment is patent with no significant stenosis. No aneurysm. Right middle cerebral artery: Unremarkable. No occlusion or significant stenosis. No aneurysm. Right anterior cerebral artery: Unremarkable. No occlusion or significant stenosis. No aneurysm. Left internal carotid artery: Unremarkable. Intracranial segment is patent with no significant stenosis. No aneurysm. Left middle cerebral artery: Unremarkable. No occlusion or significant stenosis. No aneurysm. Left anterior cerebral artery: Unremarkable. No occlusion or significant stenosis. No aneurysm. POSTERIOR CIRCULATION: Right vertebral artery: Unremarkable. No occlusion or significant stenosis. No aneurysm. Left vertebral artery: Unremarkable. No occlusion or significant stenosis. No aneurysm. Basilar artery: Unremarkable. No occlusion or significant stenosis. No aneurysm. Right posterior cerebral artery: Unremarkable. No occlusion or significant stenosis. No aneurysm. Left posterior cerebral artery: Unremarkable. No occlusion or significant stenosis. No aneurysm. IMPRESSION: No large vessel stenosis or occlusion. CT Angiography Neck With Contrast Exam date and time: 02/23/2020 4:54 PM Age: 54 years old Clinical indication: Dizziness and giddiness; Patient HX: H/o CVA TECHNIQUE: Imaging protocol: Computed tomography angiography of the neck with intravenous contrast. 3D rendering (Not supervised by radiologist): MIP and/or 3D reconstructed images were created by the technologist. COMPARISON: CTA BRAIN AND NECK 01/20/2017 5:15 PM FINDINGS: Right common carotid artery: No stenosis. No dissection or occlusion. Right internal carotid artery: No stenosis of the extracranial segment. No dissection or occlusion. Right external carotid artery: No occlusion or stenosis of the origin. Right vertebral artery: No stenosis. No dissection or occlusion. Left common carotid artery: No stenosis. No dissection or occlusion. Left internal carotid artery: No stenosis of the extracranial segment. No dissection or occlusion. Left external carotid artery: No occlusion or stenosis of the origin. Left vertebral artery: No stenosis. No dissection or occlusion. Bones/joints: No acute fracture. Soft tissues: Normal. No significant soft tissue swelling. IMPRESSION: No stenosis or occlusion. Lab Data Lab results reviewed: Yes I reviewed the patient's lab results. Labs: Laboratory Tests Range/Units 02/23/20 02/23/20 02/23/20 16:19 16:19 16:19 WBC (4.4-10.8) 10^3/uL 6.96 RBC (4.36-5.78) 10^6/uL 4.26 L Hgb (13.5-17.5) g/dL 11.2 L Hct (40.0-50.0) % 34.5 L MCV (80-95) fL 81.0 MCH (27.0-33.0) pg 26.3 L MCHC (32.0-36.0) % 32.5 RDW (11.8-14.1) % 13.6 Plt Count (130-400) 10^3/uL 189 MPV (8.0-11.0) fL 10.7 Immature Gran % 0.3 Neutrophils % 73.9 Lymphocytes % 15.2 Monocytes % 4.7 Eosinophils % 5.3 Basophils % 0.6 Nucleated RBC % % 0 Absolute Neutrophils (1.2-6.7) 10^3/uL 5.14 Absolute Lymphocytes (1.2-3.4) 10^3/uL 1.06 L Absolute Monocytes (0.1-0.8) 10^3/uL 0.33 Absolute Eosinophils (0.0-0.7) 10^3/uL 0.37 Absolute Basophils (0.0-0.2) 10^3/uL 0.04 PT (9.3-11.0) sec 10.1 INR (0.9-1.1) 1.0 APTT (21.0-31.4) sec 20.9 L Sodium (136-145) mmol/L 139 Potassium (3.5-5.1) mmol/L 3.4 L Chloride (98-107) mmol/L 104 Carbon Dioxide (21.0-32.0) mmol/L 24.4 Anion Gap (3-11) mmol/L 10.6 BUN (7-18) mg/dL 12 Creatinine (0.70-1.30) mg/dL 1.16 Estimated GFR/1.73 m2 (mL/min/1.73m2) >= 60.00 Glucose (74-106) mg/dL 219 H Calcium (8.5-10.1) mg/dL 8.4 L Magnesium (1.8-2.4) mg/dL 2.0 Total Bilirubin (0.2-1.0) mg/dL 0.3 AST (15-37) U/L 11 L ALT (16-63) U/L 17 Alkaline Phosphatase (46-116) U/L 70 Troponin I (<0.06) ng/mL < 0.05 Total Protein (6.4-8.2) g/dL 6.4 Albumin (3.4-5.0) g/dL 3.3 L ECG Data Attestation: I personally reviewed and interpreted this ECG (s) as follows: Interpretation: Rate of 74, sinus, no acute ST elevation or depression. SD 177. QRS 21. QTc 445. HPI General Mode of arrival: EMS. Date/Time Provider Initiated Documentation: 02/23/20 16:17. Limitations to Documentation: no limitations. Information obtained by: patient. HPI Narrative: Patient is a 54-year-old male with a history of hypertension, hyperlipidemia, diabetes and CVA in 2017 resulting in left upper and lower extremity weakness presents for an episode of dizziness today after bending over at work. Patient states he was carrying a bucket at work when he bent over and felt the room was spinning. Patient states he attempted to carry a bucket with his right hand and felt generally weak and near passing out. Patient states he was able to rest a bit his symptoms improved. He also admits to blurry vision and a mild headache around this time which is now resolving. Patient states his symptoms do not feel exactly similar to his previous stroke and that he had left-sided weakness at that time worse today he felt generally weak with a spinning sensation. Patient denies any recent illness, recent travel, recent injury, chest pain, shortness of breath or palpitations. He states he had been feeling well prior to the onset of the symptoms. He states he has not been drinking as much water as he should be and feels he may be dehydrated. Related Data Home Medications Medication Instructions Recorded Confirmed blood sugar diagnostic #400 strip 03/20/18 01/28/20 polyethylene glycol 3350 17 gram 17 gm PO DAILY PRN PRN #1 dose pk 03/20/18 02/23/20 oral powder packet acetaminophen 500 mg PO Q6H PRN #30 tab 03/23/19 02/23/20 ibuprofen 600 mg PO TID PRN #30 tab 03/23/19 02/23/20 aspirin 325 mg tablet 325 mg PO DAILY #90 tab 04/02/19 02/23/20 docusate sodium 100 mg capsule 100 mg PO TID PRN PRN #270 cap 04/21/19 02/23/20 lancets 28 gauge #400 ea 08/24/19 01/28/20 glipizide 5 mg tablet, extended 5 mg PO DAILY #90 tab-cap 10/26/19 02/23/20 release 24 hr metformin 1,000 mg tablet 1,000 mg PO BID #180 tab 10/26/19 02/23/20 amlodipine 5 mg tablet 5 mg PO DAILY #90 tab-cap 12/01/19 02/23/20 atorvastatin 40 mg tablet 40 mg PO QPM #90 tab 12/01/19 02/23/20 hydrochlorothiazide 25 mg tablet 25 mg PO DAILY #90 tab 12/01/19 02/23/20 lisinopril 40 mg tablet 40 mg PO DAILY #90 tab-cap 12/01/19 02/23/20 tamsulosin 0.4 mg capsule 0.8 mg PO DAILY #180 cap 12/27/19 02/23/20 sertraline 100 mg tablet 200 mg PO DAILY #180 tab-cap 01/14/20 02/23/20 meclizine 12.5 mg PO TID PRN #14 tab 02/23/20 Previous Rx's Medication Instructions Recorded blood sugar diagnostic #400 strip 03/20/18 polyethylene glycol 3350 17 gram 17 gm PO DAILY PRN PRN #1 dose pk 03/20/18 oral powder packet acetaminophen 500 mg PO Q6H PRN #30 tab 03/23/19 ibuprofen 600 mg PO TID PRN #30 tab 03/23/19 aspirin 325 mg tablet 325 mg PO DAILY #90 tab 04/02/19 docusate sodium 100 mg capsule 100 mg PO TID PRN PRN #270 cap 04/21/19 lancets 28 gauge #400 ea 08/24/19 glipizide 5 mg tablet, extended 5 mg PO DAILY #90 tab-cap 10/26/19 release 24 hr metformin 1,000 mg tablet 1,000 mg PO BID #180 tab 10/26/19 amlodipine 5 mg tablet 5 mg PO DAILY #90 tab-cap 12/01/19 atorvastatin 40 mg tablet 40 mg PO QPM #90 tab 12/01/19 hydrochlorothiazide 25 mg tablet 25 mg PO DAILY #90 tab 12/01/19 lisinopril 40 mg tablet 40 mg PO DAILY #90 tab-cap 12/01/19 tamsulosin 0.4 mg capsule 0.8 mg PO DAILY #180 cap 12/27/19 sertraline 100 mg tablet 200 mg PO DAILY #180 tab-cap 01/14/20 meclizine 12.5 mg PO TID PRN #14 tab 02/23/20 Allergies Allergy/AdvReac Type Severity Reaction Status Date / Time No Known Allergies Allergy Verified 02/23/20 16:56 General Stated Complaint: Dizzy/Sync DOE: 3 Review of Systems All systems reviewed & are unremarkable except as noted in HPI and below Constitutional Constitutional: Reports as per HPI, Denies chills, Denies fever(s) and Reports headache(s) Eyes Eyes: Denies blurry vision ENT Ears, Nose, Mouth, and Throat: Reports dizziness, Reports headache(s), Denies sore throat and Denies throat swelling Cardiovascular Cardiovascular: Denies chest pain and Denies dyspnea Respiratory Respiratory: Denies cough and Denies dyspnea Gastrointestinal Gastrointestinal: Denies abdominal pain, Denies diarrhea and Denies vomiting Genitourinary Genitourinary: Denies hematuria and Denies dysuria Musculoskeletal Musculoskeletal: Denies back pain and Denies numbness Integumentary/Breasts Skin/Breast: Denies lesions and Denies rash Neurologic Neurologic: Reports dizziness, Reports headache(s), Denies localized weakness and Denies numbness Allergic/Immunologic Allergic/Immunologic: Denies throat swelling FOR[facility]LY [facility] Medical History (Updated 02/23/20 @ 19:11 by Ana Laura Fair DO) Anxiety Cerebrovascular accident (CVA) (03/19/17) Left hemiparesis 01/23 Depression Essential hypertension Exertional dyspnea History of alcoholism and drug abuse; at age 28-30 Hyperlipidemia NPDR with macular edema 05/26/19 [place] (L) EYE-kb 11/29/19 [place] B/L MEIL-kb Right rotator cuff tendonitis Injection: 04/29/2019 Type 2 diabetes mellitus Surgical History History of shoulder surgery One right shoulder Two left shoulder History of spinal surgery Right carpal tunnel syndrome (03/23/19) S/P ECTR Family History Mother No problems noted. Father No problems noted. Sister No problems noted. Sister No problems noted. Sister No problems noted. Sister No problems noted. Grandfather Diabetes Heart disease Grandfather Personal history of malignant neoplasm Grandmother Personal history of malignant neoplasm BREAST Grandmother Personal history of malignant neoplasm Social History Smoking/Tobacco Use Status: Former Tobacco Use Alcohol Intake: former Drug use: Occasionally Substance use type: marijuana Details: Previously used crystal meth and cocaine in his late 20s; denies any relapse Number of Children: 8 current occupation: [employer] Current gender identity: male Do you feel safe at home: Yes Do you feel safe in your relationship?: Yes Exam Const General: cooperative and no acute distress Orientation: alert, awake and oriented x3 HENMT Head: normal to inspection Ears: hearing grossly normal bilaterally, external ears normal and TM's normal bilaterally Face and sinus: normal facial exam Mouth: mucous membranes dry Eyes General: appearance normal, both eyes and all related structures Pupils: PERRL EOM: EOM intact bilaterally Neck Neck: normal visual inspection and No submandibular swelling Lymphatic: no lymphadenopathy noted Chest Chest: normal inspection of the chest and no tenderness Resp Effort & Inspection: normal respiratory effort and able to speak in complete sentences Auscultation: clear to auscultation bilaterally Cardio Rate: regular rate Rhythm: regular rhythm GI Inspection: normal to inspection Palpation: soft, not firm, not rigid and nontender Auscultation: normal bowel sounds Skin General skin exam: no rashes or lesions noted Neuro General: patient alert, patient awake and patient oriented x3 Cranial Nerves: CN's II-XI intact bilaterally and nystagmus present Cognition: normal cognition Speech: speech normal Motor: muscle tone normal throughout and other (MS LUE 4/5. MS LLE 3/5. MS RUE/RLE 5/5) Sensory Exam: no sensory deficits noted Extrem General: normal to inspection, full ROM, capillary refill normal, no calf tenderness bilaterally and no edema Psych Appearance: grossly normal Mental Status: mental status grossly normal Speech and Movement: speech and movement normal Affect: normal affect Course Vital Signs Vital signs: Vital Signs Temperature 98.2 F 02/23/20 16:09 Pulse 77 02/23/20 16:09 Respiratory Rate 14 02/23/20 16:09 Blood Pressure 151/78 H 02/23/20 16:09 Pulse Oximetry 97 02/23/20 16:09 Temperature 98.2 F 02/23/20 16:09 Temperature Source Skin 02/23/20 16:09 Pulse 77 02/23/20 16:09 Respiratory Rate 14 02/23/20 16:09 Respiratory Effort Non-Labored 02/23/20 16:12 Blood Pressure 151/78 H 02/23/20 16:09 Blood Pressure Position Supine 02/23/20 16:09 Pulse Oximetry 97 02/23/20 16:09 Oxygen Delivery Method Room Air 02/23/20 16:09 Oxygen Flow Rate 0 02/23/20 16:09 Pain Level 4 02/23/20 16:09 Comment 02/23/20 16:09
--- NOTE | 2020-02-23 16:45 | DI.RAD_ITS ---
EXAM: XR CHEST 2V PA LATERAL CLINICAL HISTORY: dizziness, r/o acute disease TECHNIQUE: 2D digital imaging was performed. COMPARISON: CR XR CHEST 2V PA LATERAL from 12/30/2019 FINDINGS: The heart is not enlarged. The lungs are clear and well expanded. No pleural effusion seen. Mediastin al contours appear intact. IMPRESSION: Normal chest RADIATION DOSE DELIVERED: Total DLP
--- NOTE | 2020-02-23 16:45 | DI.CT_ITS ---
EXAM: CT BRAIN NECK CTA CLINICAL HISTORY: dizziness, headache, h/o cva. TECHNIQUE: Imaging Protocol: Axial CT angiography was performed with multi-slice acquisition and mu lti-planar and/or 3D reconstructions. CONTRAST MATERIAL: Intravenous: Omnipaque 350 Contrast volume:85 cc COMPARISON: CT CTA BRAIN AND NECK from 01/20/2017 CR,XR XR CHEST 2V PA LATERAL from 02/23/2020 FINDINGS: CT angiography of the cervical cranial region was performed according to the usual protocol. Noncontrast scanning of the head shows no significant findings. Visualized lung apices are clear. Visualized portions of thoracic aorta and pulmonary arterial circul ation are unremarkable. There is no evidence of a cervical mass or adenopathy. The tracheal laryngeal structures appear intact. The common, internal, and external carotid arteries are within normal limits in the cervical region w ith no evidence of aneurysm, stenosis, or dissection. The vertebral arteries are unremarkable in appearance in the cervical region with no evidence of aneu rysm, stenosis, or dissection. Intracranial portions of the internal carotid arteries appear normal with no evidence of aneurysm, st enosis, or dissection. Left vertebral artery and basilar artery appear normal with no evidence of aneurysm, stenosis or diss ection. 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 This configuration appears to have been present on prior CT angiogram of 01/20/2017. No aneurysm identified in the region of the [id number]. The anterior, middle, and posterior cer ebral arteries and major branches appear intact with no evidence of aneurysm, stenosis, or dissection . No enhancing brain lesion identified. Incidental common origin of right and left anterior cerebral arteries noted. 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 No change in appea george from 01/20/2017. RADIATION DOSE DELIVERED: 1,064.94mGy.cmTotal DLP 1,064.94mGy.cm Total DLP DATA REPOSITORY: All CT scans at this facility are submitted to the National Radiology Data Registry (NRDR) Dose Index Registry (DIR) with the [employer] (A[employer]). RADIATION OPTIMIZATION: All CT scans at this facility use at least one of these dose optimization te chniques: automated exposure control; mA and/or kV adjustment per patient size (includes targeted exa ms where dose is matched to clinical indication); or iterative reconstruction.
[2020-02-23] MEDS: Meclizine 25 MG TAB PO (17:06)
[2020-02-23] MEDS: Ondansetron 4 MG/2 ML VIAL IVP (17:06)
[2020-02-23] MEDS: Normal Saline 1,000 ML 1000 ML IV (17:06)
[2020-02-23 17:15] LABS: Abs Immature Grans 0.02 10^3/uL (0.0-0.06); Absolute Basophil Count 0.04 10^3/uL (0.0-0.2); Absolute Eosinophil Count 0.37 10^3/uL (0.0-0.7); Absolute Lymphocyte Count 1.06 10^3/uL (1.2-3.4); Absolute Monocyte Count 0.33 10^3/uL (0.1-0.8); Absolute Neutrophil Count 5.14 10^3/uL (1.2-6.7); Basophils % 0.6; Eosinophils % 5.3; HCT 34.5 % (40.0-50.0); HGB 11.2 g/dL (13.5-17.5); Immature Grans % 0.3; Lymphocytes % 15.2; MCH 26.3 pg (27.0-33.0); MCHC 32.5 % (32.0-36.0); MPV 10.7 fL (8.0-11.0); Monocytes % 4.7; Neutrophils % 73.9; Nucleated RBC 0 %; Platelet Count 189 10^3/uL (130-400); RBC 4.26 10^6/uL (4.36-5.78); RDW 13.6 % (11.8-14.1); RDW-SD 39.1 fL; WBC 6.96 10^3/uL (4.4-10.8)
[2020-02-23] MEDS: Omnipaque 350 MG/ML 100 ML BTL IJ (17:27)
[2020-02-23] MEDS: Normal Saline - Diluent 50 ML VIAL IV (17:28)
[2020-02-23 17:34] LABS: ALT 17 U/L (16-63); AST 11 U/L (15-37); Albumin 3.3 g/dL (3.4-5.0); Alkaline Phosphatase 70 U/L (46-116); Anion Gap 10.6 mmol/L (3-11); BUN 12 mg/dL (7-18); Bilirubin, Total 0.3 mg/dL (0.2-1.0); CO2 24.4 mmol/L (21.0-32.0); CREATININE 1.16 mg/dL (0.70-1.30); Calcium 8.4 mg/dL (8.5-10.1); Chloride 104 mmol/L (98-107); Glucose 219 mg/dL (74-106); Potassium 3.4 mmol/L (3.5-5.1); Sodium 139 mmol/L (136-145); Total Protein 6.4 g/dL (6.4-8.2)
[2020-02-23 17:35] LABS: Troponin I < 0.05 ng/mL (<0.06)
--- NOTE | 2020-02-23 17:38 | DI.VRAD_ITS ---
PROCEDURE INFORMATION: Exam: XR Chest, 2 Views Exam date and time: 02/23/2020 5:24 PM Age: 54 years old Clinical indication: Other: Dizziness TECHNIQUE: Imaging protocol: XR of the chest Views: 2 views. COMPARISON: CR XR CHEST 2V PA LATERAL 12/30/2019 1:16 PM FINDINGS: Lungs: Unremarkable. No consolidation. Pleural space: Unremarkable. No pleural effusion. No pneumothorax. Heart/Mediastinum: Unremarkable. No cardiomegaly. Bones/joints: Unremarkable. IMPRESSION: No acute findings. Dictated and Authenticated by: Kena Linder MD. Ordering:JAVIER Du MD
--- NOTE | 2020-02-23 17:38 | DI.VRAD_ITS ---
PROCEDURE INFORMATION: Exam: CT Angiography Head With Contrast Exam date and time: 02/23/2020 4:54 PM Age: 54 years old Clinical indication: Dizziness and giddiness; Patient HX: H/o CVA TECHNIQUE: Imaging protocol: Computed tomography angiography of the head with intravenous contrast. 3D rendering (Not supervised by radiologist): MIP and/or 3D reconstructed images were created by the technologist. COMPARISON: CTA BRAIN AND NECK 01/20/2017 5:15 PM FINDINGS: ANTERIOR CIRCULATION: Right internal carotid artery: Unremarkable. Intracranial segment is patent with no significant stenosis. No aneurysm. Right middle cerebral artery: Unremarkable. No occlusion or significant stenosis. No aneurysm. Right anterior cerebral artery: Unremarkable. No occlusion or significant stenosis. No aneurysm. Left internal carotid artery: Unremarkable. Intracranial segment is patent with no significant stenosis. No aneurysm. Left middle cerebral artery: Unremarkable. No occlusion or significant stenosis. No aneurysm. Left anterior cerebral artery: Unremarkable. No occlusion or significant stenosis. No aneurysm. POSTERIOR CIRCULATION: Right vertebral artery: Unremarkable. No occlusion or significant stenosis. No aneurysm. Left vertebral artery: Unremarkable. No occlusion or significant stenosis. No aneurysm. Basilar artery: Unremarkable. No occlusion or significant stenosis. No aneurysm. Right posterior cerebral artery: Unremarkable. No occlusion or significant stenosis. No aneurysm. Left posterior cerebral artery: Unremarkable. No occlusion or significant stenosis. No aneurysm. IMPRESSION: No large vessel stenosis or occlusion. PROCEDURE INFORMATION: Exam: CT Angiography Neck With Contrast Exam date and time: 02/23/2020 4:54 PM Age: 54 years old Clinical indication: Dizziness and giddiness; Patient HX: H/o CVA TECHNIQUE: Imaging protocol: Computed tomography angiography of the neck with intravenous contrast. 3D rendering (Not supervised by radiologist): MIP and/or 3D reconstructed images were created by the technologist. COMPARISON: CTA BRAIN AND NECK 01/20/2017 5:15 PM FINDINGS: Right common carotid artery: No stenosis. No dissection or occlusion. Right internal carotid artery: No stenosis of the extracranial segment. No dissection or occlusion. Right external carotid artery: No occlusion or stenosis of the origin. Right vertebral artery: No stenosis. No dissection or occlusion. Left common carotid artery: No stenosis. No dissection or occlusion. Left internal carotid artery: No stenosis of the extracranial segment. No dissection or occlusion. Left external carotid artery: No occlusion or stenosis of the origin. Left vertebral artery: No stenosis. No dissection or occlusion. Bones/joints: No acute fracture. Soft tissues: Normal. No significant soft tissue swelling. IMPRESSION: No stenosis or occlusion. REFERENCES: NASCET CRITERIA. The degree of internal carotid artery stenosis is based on NASCET criteria. Normal is no stenosis. Mild is less than 50% stenosis. Moderate is 50-69% stenosis. Severe is 70% to 99% stenosis. Total occlusion is no detectable patent lumen. Dictated and Authenticated by: Kena Linder MD. Ordering:JAVIER Du MD
[2020-02-23 17:42] LABS: PTT Activated 20.9 sec (21.0-31.4); Prothrombin Time 10.1 sec (9.3-11.0)
== END 2020-02-23 19:53 | disposition home or self-care (01) ==
PROVIDERS: Emergency Provider Physician Assistant; PCP Emergency Medicine
DX: E87.6 Hypokalemia (principal); R53.1 Weakness; R42 Dizziness and giddiness; R51 Headache; I10 Essential (primary) hypertension; E11.9 Type 2 diabetes mellitus without complications; Z79.84 Long term (current) use of oral hypoglycemic drugs; F41.8 Other specified anxiety disorders
CPT/HCPCS: 36415; 70496; 70498; 80053; 93005; 96361; 96374; 99285; 71046; 83735; 84484; 85025; 85610; 85730; 93010; J2405; J3490

== ENCOUNTER 2020-02-29 15:22 | Outpatient (REF) | payer MEDICAID, SELFPAY ==
[2020-02-29 21:47] LABS: Hemoglobin A1C 6.9 % (<5.7)
== END 2020-02-29 15:42 ==
LOC: LBN 15:22
PROVIDERS: PCP Emergency Medicine; Visit Provider Emergency Medicine
DX: E11.9 Type 2 diabetes mellitus without complications (principal)
CPT/HCPCS: 83036

== ENCOUNTER 2020-03-16 10:55 | Outpatient (CLI) | payer MEDICAID, SELFPAY ==
--- NOTE | 2020-03-16 10:15 | DI.RAD_ITS ---
EXAM: XR SHOULDER RT COMPLETE 2+V CLINICAL HISTORY: shoulder pain TECHNIQUE: COMPARISON: CR XR SHOULDER RT COMPLETE 2+V from 04/29/2019 FINDINGS: Two views were obtained. The cartilaginous joint space of the glenohumeral joint appears fairly well maintained. There are moderate hypertrophic marginal osteophytes of the humeral head and to a lesse r degree the glenoid. There are moderate hypertrophic changes at the AC joint and there is inferior spurring of the acromion with a well maintained acromial humeral distance. IMPRESSION: Mild degenerative changes as described above. RADIATION DOSE DELIVERED: Total DLP
== END 2020-03-16 11:15 ==
PROVIDERS: PCP Emergency Medicine; Referring Provider Emergency Medicine; Visit Provider Student in an Organized Health Care Education/Training Program
DX: M19.011 Primary osteoarthritis, right shoulder (principal); M25.711 Osteophyte, right shoulder
CPT/HCPCS: 73030

== ENCOUNTER 2020-03-21 01:41 | Outpatient (CLI) | payer MEDICAID, SELFPAY ==
[2020-03-22 20:24] LABS: COVID-19 RT-PCR Result NEGATIVE (Negative)
== END 2020-03-21 02:01 ==
PROVIDERS: PCP Emergency Medicine; Visit Provider Student in an Organized Health Care Education/Training Program
DX: Z11.59 Encounter for screening for other viral diseases (principal); Z01.818 Encounter for other preprocedural examination
CPT/HCPCS: U0003

== ENCOUNTER 2020-03-24 07:30 | Observation (INO) | payer MEDICAID, SELFPAY ==
[2020-03-24] VITALS (11 sets, daily range): BP systolic 103–161; BP diastolic 52–93; PULSE 70–103; RESP 12–21; TEMP 36.4–37.1; O2SAT 94–98
[2020-03-24] MEDS: Lactated Ringers 1,000 ML 100 ML IV ×2 (07:29→23:55)
[2020-03-24] MEDS: ceFAZolin 2 GM/50 ML BAG IVPB (08:16)
[2020-03-24] MEDS: EPINEPHrine 30 MG/30 ML VIAL (12:00)
[2020-03-24] MEDS: Lactated Ringers 1,000 ML 30 ML IV (13:50)
--- NOTE | 2020-03-24 14:01 | W.PM.OP ---
Date of service: 03/24/20 Time of Service: 13:46 Operative Note Operative Note DATE OF PROCEDURE: 03/24/20 PRE-OP DIAGNOSIS: Right: 1. Rotator cuff tear 2. LHB tendinopathy 3. Bursitis 4. Impingement 5. Contracture POST-OP DIAGNOSIS: same PROCEDURE: Right: 1. Rotator cuff repair, CPT# 39330. This involved repair of the subscapularis and supraspinatus using anchors and sutures to reattach the rotator cuff back to the footprint of the lesser and greater tuberosity. 2. Arthroscopic biceps tenodesis, CPT# 99795. This involved arthroscopically suturing and reattaching the long head of the biceps tendon to the proximal humerus at the superior margin of the bicipital groove in the subacromial space with a screw at the correct tension. 3. Extensive debridement, CPT# 25726. This involved using arthroscopic hand instruments, power instruments, and radiofrequency instruments to release to release the long head of the biceps tendon, release the anterior capsular contracture and middle glenohumeral ligament, and debride areas of labral tearing, synovitis, and chondromalacia about the biceps groove within the glenohumeral joint anteriorly, superiorly and posteriorly. 4. Subacromial decompression with partial acromioplasty, CPT# 06541. This involved using arthroscopic power instruments and a radiofrequency wand to complete a bursectomy and remove bone spurs on the undersurface of the acromion and on top of the greater tuberosity. The dental chairside assistant was medically required in order to help assist in techniques above, which require positioning the arm, holding the arthroscope, and manipulating multiple instruments and sutures at the same time. This cannot be done without the help of an experienced dental chairside assistant. SURGEON: Luis Felipe Cole PLANETARIUM TECHNICIAN: Reva Stephen ANESTHESIA: GETA and regional ESTIMATED BLOOD LOSS: 30 PATHOLOGY: none sent COMPLICATIONS: None Patient was transported to: PACU Patient's condition: stable Implants: Arthrex: 4.75mm SwiveLocks x 5, 4.75 mm knotless SwiveLock x1 Indications: The patient was diagnosed with the above conditions and appropriately indicated for surgical intervention. Please see complete medical record for details. Findings: Exam under anesthesia: Significantly limited external rotation maybe 15 degrees with the elbow at the side. Limited internal rotation at 90 degrees of abduction maybe 25 degrees. Good forward flexion probably 135 degrees. Glenohumeral joint: Profound anterior, superior, and posterior synovitis. Disrupted biceps sling, middle glenohumeral ligament, approximately 50% upper subscapularis tear with retraction, full-thickness supraspinatus tear, inflamed and degenerative biceps tendon and SLAP tear. Anterior labral fraying. Subacromial space: Profound bursitis. Anterior and lateral subacromial bone spurs. Central greater tuberosity bone spur. Full-thickness supraspinatus tear with moderate retraction likely involving the rotator interval, delaminated centrally with disruption of the rotator cable, and involving the anteriormost infraspinatus. Procedure Description: In the operating room, general anesthesia was induced. Bilateral shoulders were examined. The patient was positioned in the beachchair position. All bony prominences were well-padded. Preoperative antibiotics were administered. The shoulder was prepped and draped in the usual sterile fashion. The correct patient, procedure, and side of the procedure were all verified prior to incision. Starting through the posterior portal a standard complete diagnostic arthroscopy was performed of the glenohumeral joint including inspection of the long head of the biceps, anterior and superior labrum, subscapularis tendon, supraspinatus and infraspinatus tendons, and axillary recess. The glenoid and humeral head cartilage as well as the posterior labrum were inspected from an anterior viewing portal. Significant findings and interventions noted above. The biceps tendon was secured using a fiber loop stitch and a modified loop and tach fashion and then released from the superior labrum using arthroscopic scissors. The arm was brought into full, past 75 degrees, external rotation with the elbow at the side confirming appropriate anterior contracture/capsular release. The lesser tuberosity footprint was prepared using hand and power instruments for tendon healing. The subscapularis had significant degeneration and was scarred to the anterior capsule. It was meticulously released using combination of hand and power instruments. A rigid cannula was inserted anteriorly. The arm was positioned in neutral. Using a 1 portal technique, a suture lasso was used to pass a suture tape fiber link through the lateral and superior subscapularis. This stitch was used for traction and passing of a fiber tape more medially and centrally in the subscapularis tendon body. The punch was used to localize placement of the anchor. Both sutures were passed through the anchor eyelet and the anchor was brought down to the bone with the sutures tensioned appropriately. The arm was brought through full external rotation demonstrating no restricted motion due to the repair and secure fixation of the tendon and anchor to bone. Starting through the posterior portal, the arthroscope was directed into the subacromial space. A lateral 50 yard line lateral portal was created. A combination of power instruments and a radiofrequency ablator were used to debride bursitis anteriorly, posteriorly, and laterally as well as expose and smooth bone spurring on the undersurface of the acromion. The coracoacromial ligament was preserved. The bursectomy was completed viewing laterally and working from posteriorly and the rotator cuff was thoroughly inspected with findings noted above. The rigid anterior cannula was withdrawn. The biceps tendon FiberLink was brought out the anterior portal and then the cannula reinserted not including the stitch and directed at the subacromial space anteriorly. Cannulas were inserted at the superior anterior lateral and superior posterior lateral margins of the acromion as well as at the lateral 50 yard line portal. The rotator cuff tear was inspected and debrided of frayed tissue at the margins exposing a large, complex and delaminated supraspinatus tear with moderate retraction almost to the level of the glenoid. The greater was tuberosity cleared of fibrous tissue over the footprint and the bursectomy was extended laterally. The greater tuberosity also had significant bone spur, which had been noted preoperatively, and this was smooth as well as part of a tuberoplasty. Various hand instruments were used to mobilize the rotator cuff and confirm appropriate excursion on all layers and best reduction maneuvers. Through a stab portal, a punch was used to localize placement the first medial row anchor starting anteriorly that was loaded with fiber tape. A suture passer was as well as a tissue grasper was used to pass both ends of this fiber tape through all layers of the tendon at the appropriate level medially. This process was repeated for the second posterior medial row anchor. Next, a self retrieving suture passer was used to pass fiber link sutures in cinch mode anterior to the first medial row anchor, between the anchors, and posterior to the second medial row anchor. The rotator cuff tear was provisionally reduced through these fiber link sutures and secured to a middle row suture anchor. Lastly, a fiber tape from the anterior and posterior anchors was brought to a posterior lateral row anterior anchor and this process repeated for the anterior lateral row anchor with the addition of the biceps tendon FiberLink. Appropriate rotator cuff reduction and compression across the majority of the the greater tuberosity was confirmed. The anterior lateral anchor was also a knotless swivel lock. This repair stitch was then used additionally secure the biceps tendon as well as augment the anteriormost aspect of the repair and provide tissue coverage over this small exposed area of the greater tuberosity. The repair was inspected through shoulder range of motion and found to be stable with secure fixation. The shoulder was drained of arthroscopic fluid. All portal sites were copiously irrigated. These incisions were closed using 3-0 Monocryl in a buried fashion, covered with Mastisol, Steri-Strips, Xeroform, dry gauze, and ABDs. The dressings were covered and secured with Medipore tape. The operative extremity was placed into a sling for immobilization. The patient awoke from anesthesia without complication and was transferred to the recovery room in a stable condition.
[2020-03-24] MEDS: glipiZIDE C.R. 5 MG TABCR PO (15:08)
--- NOTE | 2020-03-24 15:52 | PDOC.CMPRO ---
- If Service Date Differs Date of service: 03/24/20 Time of Service: 15:53 Care Management Progress Note S/O: Shadi will be returning home with his family when he is medically ready. He has been admitted for pain control status post shoulder surgery. Plan will be for him to transition to swing bed level for PT and OT to evaluate and treat. He will need to be able to transfer from sitting to stand position at home and asisst with his care. Plan will be for short swing bed stay for about a week. A:Shadi is a 54 year old man admitted status post left shoulder surgery with a history of CVA and a flaccid right arm. P:Shadi will transition to swing bed on Friday for a short rehab stay for PT and OT. He has community Medicaid that will be the payer source for his swing bed.
[2020-03-24] MEDS: ceFAZolin 1 GM/50 ML BAG IVPB (19:40)
[2020-03-24] MEDS: oxyCODONE 5 MG TAB PO (19:40)
[2020-03-24] MEDS: Atorvastatin 40 MG TAB PO (19:41)
[2020-03-24] MEDS: Acetaminophen 325 MG TAB 650 MG PO (21:46)
[2020-03-24] MEDS: Naproxen 500 MG TAB PO (21:46)
[2020-03-25 03:35] VITALS: BP 160/81; PULSE 71; RESP 18; TEMP 36.1; O2SAT 97
[2020-03-25] MEDS: oxyCODONE 5 MG TAB PO ×2 (04:05→11:09)
[2020-03-25] MEDS: ceFAZolin 1 GM/50 ML BAG IVPB ×2 (04:05→11:07)
[2020-03-25 08:00] VITALS: BP 159/80; PULSE 72; RESP 18; TEMP 36; O2SAT 98
[2020-03-25] MEDS: amLODIPine 5 MG TAB PO (08:04)
[2020-03-25] MEDS: Tamsulosin 0.4 MG CAPCR 0.8 MG PO (08:04)
[2020-03-25] MEDS: Lisinopril 20 MG TAB 40 MG PO (08:05)
[2020-03-25] MEDS: Multivitamin w/Minerals TAB 1 TAB PO (08:05)
[2020-03-25] MEDS: glipiZIDE C.R. 5 MG TABCR PO (08:05)
[2020-03-25] MEDS: Sertraline 50 MG TAB 200 MG PO (08:05)
[2020-03-25] MEDS: Aspirin E.C. 325 MG TABEC PO (08:05)
[2020-03-25] MEDS: hydroCHLOROthiazide 25 MG TAB PO (08:05)
[2020-03-25] MEDS: Lactated Ringers 1,000 ML 100 ML IV (08:38)
[2020-03-25] MEDS: Docusate Sodium 100 MG CAP PO (08:45)
[2020-03-25] MEDS: Acetaminophen 325 MG TAB 650 MG PO (08:45)
--- NOTE | 2020-03-25 09:02 | PT.INIE ---
Date of service: 03/25/20 Time of Service: 08:30 PT Notes Visit Reasons: Right shoulder rotator cuff tear Inpatient Physical Therapy Evaluation Date: 03/25/20 Referring Doctor: Luis Felipe Cole PT Orders: PT CONSULT: Evaluate and treat Precautions: Standard, limited left UE use, NWB through right UE Patient Profile/Admitting Diagnosis: Orders received for this 54 year old male who has been disabled recently by a CVA affecting left side. 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 He is an active father of several children. He has been noticing increased dysfunction and pain through the right upper extremity most likely the overuse due to the limited ability of the left. Due to the continued dysfunction and functional limitations through the extremity patient for shoulder surgery which was completed at [facility]. Patient received rotator cuff repair, acromial decompression, extensive debridement. Patient has been admitted due to his limited upper extremity involvement and see whether or not he can complete independent functional ADL once returning home. PMHX: Medical History (Updated 02/23/20 @ 19:11 by Ana Laura Fair DO) Anxiety Cerebrovascular accident (CVA) (03/19/17) Left hemiparesis 01/23 Depression Essential hypertension Exertional dyspnea History of alcoholism and drug abuse; at age 28-30 Hyperlipidemia NPDR with macular edema 05/26/19 SHIPPEE (L) EYE-kb 11/29/19 SHIPPEE B/L MEIL-kb Right rotator cuff tendonitis Injection: 04/29/2019 Type 2 diabetes mellitus Surgical History History of shoulder surgery One right shoulder Two left shoulder History of spinal surgery Right carpal tunnel syndrome (03/23/19) S/P ECTR Social History/Home Situation: Currently lives in a basement apartment at his parents home. Equipment Owned/DME: None currently Subjective: Patient states he is in a little bit of pain Objective: Patient sitting up in recliner chair just finished, Flores catheter in place, IV located in left upper extremity Mental Status: Well oriented alert to person place and time Pain: 4 out of 10 ROM: Right Upper Extremity: Not to due to acuity Left Upper Extremity: Active shoulder range of motion to 90 degrees of flexion, 70 degrees of abduction, limited internal and external rotation. Spasticity and tone patient tends to internally rotate through the humerus on the left side with any sort of act flexion raise Right Lower Extremity: Within functional limits Left Lower Extremity: Within functional limits Strength: Right Upper Extremity: Not tested due to acuity Left Upper Extremity: Shoulder flexion 4-5, elbow flexion internal rotation of the shoulder is 4+ out of 5, Right Lower Extremity: Grossly 5 out of 5 Left Lower Extremity: Grossly 5 out of 5 Bed Mobility/Transfers: Not tested as she is already in recliner chair Supine-sit: Not tested as patient is already in recliner chair Sit-stand: Under minimal assist to full stand without use of assistive device, assisted lift is through the axilla Stand-sit: Contact-guard assist for guidance only Gait: Patient able to ambulate 4 steps both forward and backward with CGA Balance: Static Sitting: Normal Dynamic Sitting: Normal Static Standing: Good Dynamic Standing: Fair Special Tests: Mobility Limitations Standardized Measure [facility] AM-PAC 6 clicks Basic Mobility Inpatient Short Form: Raw Score: 18 Standardized Score: 43.63 CMS Score: 46.58% Informed Consent/Education: Patient instructed in purpose of PT consult and plan of care. ASSESSMENT: Patient is a 54 year old male with hx of right side CVA Admitted with right side RTC repair, extensive debridement, subacromial decompression Patient presents with the following impairment level findings: decreased use of right and left UE, assistance needed for transfers, decreased strength through upper extremities. Pt will benefit from skilled therapy intervention in order to remedy their functional limitations and restore patient to a more appropriate and stable functional level. Impairments are contributing to the following functional limitations: AMPAC score 46.58% Patient is assessed as a Moderate complexity initial evaluation based on the following: History: see above Examination: see above Presentation: evolving Decision Making:moderate based on AMPAC of 46.58% Goals: Goals X1 week 1. Supine-Sit independent including with bed linen 2. Sit-Supine independent including with bed linen 3. Sit-Stand Independent 4. Stand-Sit Independent 5. Gait Up to 300 feet without restriction and supervision 6: Stairs SUpervision up to 3 steps 7: Independent in Home program Plan of Care/Treatment Plan: 1-2x/day, 7 days/week x 1 week. Plan of care has been reviewed with the ELECTRIC TRUCKER providing the service under Physical Therapy direction. Initiate Physical Therapy intervention for strengthening, bed mobility, transfers, gait, stairs, balance training, use of assistive device. DISCHARGE RECOMMENDATIONS: To home once medically stable and able to complete independent functional mobility goals. TREATMENT CODE/TIME: Moderate complexity initial evaluation 31607 treatment 8:30 AM 30 minutes of patient care [facility]
--- NOTE | 2020-03-25 10:31 | W.PM.DS.N ---
Date of service: 03/25/20 Time of Service: 10:29 DS: Diagnosis Discharge Diagnosis (1) Contracture of right shoulder: Status: Acute (2) Impingement syndrome of right shoulder: Status: Acute (3) Tendonitis of long head of biceps brachii of right shoulder: Status: Acute (4) Bursitis of right shoulder: Status: Acute (5) Complete tear of right rotator cuff: Status: Acute Discharge Plan Disposition Patient Disposition: [facility] SWING BED LEVEL 1 Condition: Stable Discharge Details Reason For Visit: RIGHT SHOULDER ROTATOR CUFF TEAR Admit Date/Time: 03/24/20 07:30 Admit Provider: Luis Felipe Cole Attending Provider: Luis Felipe Cole Primary Care Provider: Joshua Small Hospital Course Hospital Course: Right shoulder RCR surgery on 03/24/2020. Postoperative course uncomplicated. Home Meds and New Rx's Prescriptions: New naproxen 250 mg tablet 250 - 500 mg PO BID PRN (Reason: Moderate pain or swelling) Qty: 60 RF: 0 oxycodone 5 mg tablet 5 - 10 mg PO Q4H PRN (Reason: moderate to severe pain) Qty: 22 RF: 0 Continued tamsulosin [Flomax] 0.4 mg capsule 0.8 mg PO DAILY Qty: 180 RF: 3 metformin 1,000 mg tablet 1,000 mg PO BID Qty: 180 RF: 3 glipizide [Glucotrol XL] 5 mg tablet extended release 24hr 5 mg PO DAILY Qty: 90 RF: 3 (DME) Blood Glucose Test strip 1 ea Miscellaneous QID Qty: 400 RF: 12 polyethylene glycol 3350 17 gram powder in packet 17 gm PO DAILY PRN PRN (Reason: constipation) Qty: 1 RF: 6 aspirin 325 mg tablet 325 mg PO DAILY Qty: 90 RF: 3 (DME) lancets 28 gauge misc 1 ea Miscellaneous QID Qty: 400 RF: 12 amlodipine 5 mg tablet 5 mg PO DAILY Qty: 90 RF: 4 atorvastatin [Lipitor] 40 mg tablet 40 mg PO QPM Qty: 90 RF: 3 hydrochlorothiazide 25 mg tablet 25 mg PO DAILY Qty: 90 RF: 4 lisinopril 40 mg tablet 40 mg PO DAILY Qty: 90 RF: 3 sertraline 100 mg tablet 200 mg PO DAILY Qty: 180 RF: 3 meclizine 12.5 mg tablet 12.5 mg PO TID PRN (Reason: dizziness) Qty: 14 RF: 0 Discontinued ibuprofen 600 mg tablet 600 mg PO TID PRN (Reason: pain) Qty: 30 RF: 0 Discharge Instructions Additional Instructions: Surgery: Shoulder arthroscopy with massive rotator cuff repair, biceps tenodesis, extensive debridement, contracture release, and subacromial decompression. Activity: You should keep your arm at your side in a neutral position at all times except for physical therapy. Do not try to lift or raise your arm using your own muscles. You should use the sling whenever you are out of the house. You may have to adjust the abduction pillow or remove it for comfort. At home it is best to remove the sling and rest the arm on a pillow at your side or support the operative side with your other hand. You may allow the arm to dangle at your side. A physical therapy prescription will be sent electronically and home health services arranged on discharge. Prescriptions: Aspirin 325 mg resume 1 daily starting the day after surgery Naproxen 250 mg take 1-2 every 12 hours with a meal as needed for moderate pain Oxycodone 5 mg take 1-2 every 4-6 hours as needed for severe pain You may use [id number] Tylenol (acetaminophen) as needed for mild pain. These pain medications may be taken all at once or in different combinations as needed. Also, recommend Colace (docusate) as a stool softener as surgery and pain medicine cause constipation. Dressings: Remove shoulder bandage after 5 days. Leave the sticky Steri-Strips in place until they fall off or remove them after you shower. Cover the incisions with Band-Aids or leave them open to air. You may shower after 7 days. Follow-up: 10-[address] Cole (04/05/2020 at 3 PM) You may take off the leg compression stockings this evening at home. You may also leave them on a few days longer if you have a history of leg swelling or edema. Let us know right away if you develop any redness, drainage, fevers, chest pain, or trouble breathing. Do not drink alcohol or drive for at least 24 hours after anesthesia. Please call the office during business hours with any questions or concerns. Referrals: Luis Felipe Cole MD [ [facility] STAFF PHYSICIAN] - Activity:: Rotator cuff repair restr Equipment/Supplies:: Shoulder immobilizer Diet:: As Tolerated Discharge Orders Discharge Orders: Discharge Order (Routine); Ordered 03/25/20 Ordered By: Luis Felipe Cole DS: Summary Status at Discharge Functional status at discharge: uses cane/walker Overall status at discharge: patient is progressing back to baseline Mental Status: mental status grossly normal Speech and Movement: speech and movement normal Mood: congruent mood Affect: normal affect Exam Narrative Exam Narrative: Alert, oriented, and comfortable. No complaints. Breathing comfortably. Talking in complete sentences. No cough or shortness of breath. No signs of lower extremity DVT swelling or calf pain Right shoulder dressing clean dry intact Demonstrates active motor throughout the distal right upper extremity with sensory nerve block still in place with global paresthesias 2+ radial pulse. Regular rate and rhythm. Psych Mental Status: mental status grossly normal Speech and Movement: speech and movement normal Mood: congruent mood Affect: normal affect DS: Data Vitals/I&O Vitals and I&O: Vital Signs Temperature 97.5 F L 03/24/20 06:57 Pulse 77 03/24/20 06:57 Pulse Rhythm Regular 03/24/20 06:57 Respiratory Rate 16 03/24/20 06:57 Respiratory Depth Normal 03/24/20 06:57 Blood Pressure 161/93 H 03/24/20 06:57 Pulse Oximetry 98 03/24/20 06:57 Oxygen Delivery Method Room Air 03/24/20 06:57 Oxygen Flow Rate 0 03/24/20 06:57 Pain Level 5 03/24/20 06:57 Intake & Output 03/23/20 03/23/20 03/24/20 11:59 23:59 11:59 Weight 212 lb 0.015 oz 216 lb 11.43 oz PFSH Medical History Anxiety Cerebrovascular accident (CVA) (03/19/17) Left hemiparesis 01/23 Depression Essential hypertension Exertional dyspnea History of alcoholism and drug abuse; at age 28-30 Hyperlipidemia NPDR with macular edema 05/26/19 SHIPPEE (L) EYE-kb 11/29/19 SHIPPEE B/L MEIL-kb Right rotator cuff tendonitis Injection: 04/29/2019 Type 2 diabetes mellitus Surgical History History of shoulder surgery One right shoulder Two left shoulder History of spinal surgery Right carpal tunnel syndrome (03/23/19) S/P ECTR Family History Mother No problems noted. Father No problems noted. Sister No problems noted. Sister No problems noted. Sister No problems noted. Sister No problems noted. Grandfather Diabetes Heart disease Grandfather Personal history of malignant neoplasm Grandmother Personal history of malignant neoplasm BREAST Grandmother Personal history of malignant neoplasm Social History Smoking/Tobacco Use Status: Former Tobacco Use Quit Date: 06/09/79 Alcohol Intake: former Drug use: Occasionally Substance use type: other Details: Occasionally uses CBD in coffee. Previously used crystal meth and cocaine in his late 20s; denies any relapse Number of Children: 8 current occupation: [employer] Current gender identity: male Do you feel safe at home: Yes Do you feel safe in your relationship?: Yes
--- NOTE | 2020-03-25 11:52 | NUR.NOTE ---
Addendum entered by Flory Holloway 03/25/20 11:53: IV removed per provider order. Original Note: Nursing Note: Pt is now in swing bed status. See swing bed chart for Shadi Pak for future charting. IV removed after ABX, tolerated well.
== END 2020-03-25 11:34 | disposition swing bed (61) ==
LOC: SUR 07:36 → MS 12:56
PROVIDERS: Admitting Provider Student in an Organized Health Care Education/Training Program; PCP Emergency Medicine; Visit Provider Student in an Organized Health Care Education/Training Program
PROC: (CPT 29827; principal; 2020-03-24 07:30)
DX: M75.41 Impingement syndrome of right shoulder (principal); M75.121 Complete rotator cuff tear or rupture of right shoulder, not specified as traumatic; M24.511 Contracture, right shoulder; M75.21 Bicipital tendinitis, right shoulder; M75.51 Bursitis of right shoulder; I10 Essential (primary) hypertension; E78.5 Hyperlipidemia, unspecified; G47.30 Sleep apnea, unspecified; F41.8 Other specified anxiety disorders; E11.9 Type 2 diabetes mellitus without complications; Z79.84 Long term (current) use of oral hypoglycemic drugs
CPT/HCPCS: 29827; 29828; 29826; 29823; 97162; L3670; NC; G0378; J0690; J1100; J2370; J2405; J2704

== ENCOUNTER 2020-03-25 10:34 | Inpatient (IN) | payer MEDICAID, SELFPAY ==
--- NOTE | 2020-03-25 11:05 | CMSCP_ITS ---
- If Service Date Differs Date of service: 03/25/20 Time of Service: 13:35 Swingbed Plan of Care Plan of care: SWING BED PROGRAM ACTIVITIES/DISCHARGE PLAN OF CARE ACTIVITIES PLAN Date: 03/25/20 Identified Need: Life enrichment during hospitalization. Emotional response to current life stressors. Intervention/Plan: Activities program, motivational interviewing, service connection. Initials: [facility] DISCHARGE PLAN Date: 03/25/20 Identified Need: rotator cuff repair, acromial decompression, extensive debridement. Limited upper extremity involvement; determine if he can complete independent functional ADLs prior to returning home. Intervention/Plan: PT/OT Initials: [facility]
--- NOTE | 2020-03-25 11:06 | CMSA_ITS ---
- If Service Date Differs Date of service: 03/25/20 Time of Service: 11:20 SB Psychosocial/Act.Assessment - Hospital Admission Admission Date: 03/24/20 Admission From:: Community/Day surgery Diagnosis:: Right shoulder rotator cuff repair - Swing Bed Admission Swing Bed Admit Date:: 03/25/20 Swing Bed Level of Care: Level 1/SNF - Social Supports PREVIOUS FUNCTIONAL STATUS/SOCIAL/FAMILY SUPPORTS:: 54 year old male who has been disabled recently by a CVA affecting left side. 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 He has been noticing increased dysfunction and pain through the right upper extremity most likely due to the overuse due to the limited ability of the left. Because of continued dysfunction and functional patrick itations through the extremity, he was brought for shoulder surgery which was completed at [facility], including rotator cuff repair, acromial decompression, extensive debridement. Swing bed admission due to his limited upper extremity involvement to determine if he can complete independent functional ADLs prior to returning home. - Prior to Admission Living Arrangements/Environment Prior to Admission:: Shadi is currently residing alone after seperating from his , his parents have been staying with him for sometime as well. He has his own basement apartment in their former home. - Education Highest Grade Completed:: High School - Work History Employment Status:: Disabled - Benefits Financial: Medicaid - Gnosticism Active Adventist Member:: No Will Adventist Members or Tire Builder Heavy Service Visit:: No - Advance Directives for Healthcare Advance Directives for Healthcare: Advance Directives Advance Directive Agent: Jocelyne Pak - Interests Hobbies:: [employer] Environmental, [employer], tinkering. - Present Functional Status Physical Abilities:: Disabled, post CVA mobility limitations in left arm. - Medical History PAST MEDICAL HISTORY/PAST SURGICAL HISTORY:: Medical: HTN, hyperlipidemia, peripheral neuropathy, chronic LBP, DM. Surgical: shoulder surgery, lumbar discectomy - Admission Data Reason for Swing Bed Admission:: Rotator cuff repair, acromial decompression, extensive debridement. Swing bed admission due to his limited upper extremity involvement to determine if he can complete independent functional ADLs prior to returning home. Discharge Plan:: Home with [facility]NA [id number] follow up. Project Buyer: Kesha [place] Date Assessment was completed:: 03/25/20
--- NOTE | 2020-03-25 11:54 | NUR.NOTE ---
Nursing Note: Pt was given 3rd bed of Ancef in other patient EMAR before he changed to swing bed. Ancef order for 1200 on this swing bed chart is a duplicate order.
[2020-03-25 16:39] VITALS: BP 130/78; PULSE 64; RESP 19; TEMP 36.4; O2SAT 99
[2020-03-25] MEDS: oxyCODONE 5 MG TAB PO (18:38)
[2020-03-25] MEDS: Atorvastatin 40 MG TAB PO (20:06)
[2020-03-25 23:39] VITALS: BP 131/75; PULSE 73; RESP 18; TEMP 36.6; O2SAT 95
[2020-03-26 07:55] VITALS: BP 170/91; PULSE 84; RESP 17; TEMP 37; O2SAT 98
[2020-03-26] MEDS: hydroCHLOROthiazide 25 MG TAB PO (08:39)
[2020-03-26] MEDS: Lisinopril 20 MG TAB 40 MG PO (08:39)
[2020-03-26] MEDS: glipiZIDE C.R. 5 MG TABCR PO (08:39)
[2020-03-26] MEDS: amLODIPine 5 MG TAB PO (08:40)
[2020-03-26] MEDS: Tamsulosin 0.4 MG CAPCR 0.8 MG PO (08:40)
[2020-03-26] MEDS: Sertraline 50 MG TAB 200 MG PO (08:40)
[2020-03-26] MEDS: Aspirin E.C. 325 MG TABEC PO (08:40)
[2020-03-26] MEDS: Multivitamin w/Minerals TAB 1 TAB PO (08:41)
--- NOTE | 2020-03-26 10:31 | PT.INIE ---
Date of service: 03/26/20 Time of Service: 10:05 PT Notes Visit Reasons: RIGHT SHOULDER ROTATOR CUFF TEAR Date: 03/26/20 Referring Doctor: Luis Felipe Cole PT Orders: PT CONSULT: Evaluate and treat Precautions: Standard, limited left UE use, NWB through right UE Patient Profile/Admitting Diagnosis: Patient admitted to swing bed status. Orders received for this 54 year old male who has been disabled recently by a CVA affecting left side. 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 He is an active father of several children. He has been noticing increased dysfunction and pain through the right upper extremity most likely the overuse due to the limited ability of the left. Due to the continued dysfunction and functional limitations through the extremity patient for shoulder surgery which was completed at [facility]. Patient received rotator cuff repair, acromial decompression, extensive debridement. Patient has been admitted due to his limited upper extremity involvement and see whether or not he can complete independent functional ADL once returning home. PMHX: Medical History (Updated 02/23/20 @ 19:11 by Ana Laura Fair DO) Anxiety Cerebrovascular accident (CVA) (03/19/17) Left hemiparesis 01/23 Depression Essential hypertension Exertional dyspnea History of alcoholism and drug abuse; at age 28-30 Hyperlipidemia NPDR with macular edema 05/26/19 SHIPPEE (L) EYE-kb 11/29/19 SHIPPEE B/L MEIL-kb Right rotator cuff tendonitis Injection: 04/29/2019 Type 2 diabetes mellitus Surgical History History of shoulder surgery One right shoulder Two left shoulder History of spinal surgery Right carpal tunnel syndrome (03/23/19) S/P ECTR Social History/Home Situation: Currently lives in a basement apartment at his parents home. Equipment Owned/DME: None currently Subjective: Patient states he is in a little bit of pain Objective: Patient sitting up in recliner chair just finished, Flores catheter in place, IV located in left upper extremity Mental Status: Well oriented alert to person place and time Pain: 4 out of 10 ROM: Right Upper Extremity: Not to due to acuity Left Upper Extremity: Active shoulder range of motion to 90 degrees of flexion, 70 degrees of abduction, limited internal and external rotation. Spasticity and tone patient tends to internally rotate through the humerus on the left side with any sort of act flexion raise Right Lower Extremity: Within functional limits Left Lower Extremity: Within functional limits Strength: Right Upper Extremity: Not tested due to acuity Left Upper Extremity: Shoulder flexion 4-5, elbow flexion internal rotation of the shoulder is 4+ out of 5, Right Lower Extremity: Grossly 5 out of 5 Left Lower Extremity: Grossly 5 out of 5 Bed Mobility/Transfers: Not tested as she is already in recliner chair Supine-sit: Not tested as patient is already in recliner chair Sit-stand: Under minimal assist to full stand without use of assistive device, assisted lift is through the axilla Stand-sit: Contact-guard assist for guidance only Gait: Patient able to ambulate 20 feet with CGA Ambulates with slight ataxia as has been described as his baseline Patient normally wears an AFO Balance: Static Sitting: Normal Dynamic Sitting: Normal Static Standing: Good Dynamic Standing: Fair Special Tests: Mobility Limitations Standardized Measure [facility] 6 clicks Basic Mobility Inpatient Short Form: Raw Score: 18 Standardized Score: 43.63 CMS Score: 46.58% Informed Consent/Education: Patient instructed in purpose of PT consult and plan of care. Patient treated with repetitive flexion extension of left elbow and flexion and abduction of left shoulder for functional mobility to assist with ADLs ASSESSMENT: Patient is a 54 year old male with hx of right side CVA Admitted with right side RTC repair, extensive debridement, subacromial decompression Patient presents with the following impairment level findings: decreased use of right and left UE, assistance needed for transfers, decreased strength through upper extremities. Pt will benefit from skilled therapy intervention in order to remedy their functional limitations and restore patient to a more appropriate and stable functional level. Impairments are contributing to the following functional limitations: AMPAC score 46.58% Patient is assessed as a Moderate complexity initial evaluation based on the following: History: see above Examination: see above Presentation: evolving Decision Making:moderate based on AMPAC of 46.58% Goals: Goals X1 week 1. Supine-Sit independent including with bed linen 2. Sit-Supine independent including with bed linen 3. Sit-Stand Independent 4. Stand-Sit Independent 5. Gait Up to 300 feet without restriction and supervision 6: Stairs SUpervision up to 3 steps 7: Independent in Home program Plan of Care/Treatment Plan: 1-2x/day, 7 days/week x 1 week. Plan of care has been reviewed with the ETL INFORMATICA DEVELOPER providing the service under Physical Therapy direction. Initiate Physical Therapy intervention for strengthening, bed mobility, transfers, gait, stairs, balance training, use of assistive device. DISCHARGE RECOMMENDATIONS: To home once medically stable and able to complete independent functional mobility goals. TREATMENT CODE/TIME: Moderate complexity initial evaluation 66501 treatment 10:05 AM 25 minutes of patient care [facility]
[2020-03-26 15:52] VITALS: BP 157/82; PULSE 80; RESP 17; TEMP 37.1; O2SAT 96
[2020-03-26] MEDS: Atorvastatin 40 MG TAB PO (20:17)
[2020-03-27 00:25] VITALS: BP 157/90; PULSE 72; RESP 18; TEMP 37.2; O2SAT 96
[2020-03-27 07:51] VITALS: BP 144/82; PULSE 80; RESP 20; TEMP 36.3; O2SAT 96
[2020-03-27] MEDS: amLODIPine 5 MG TAB PO (08:00)
[2020-03-27] MEDS: Aspirin E.C. 325 MG TABEC PO (08:00)
[2020-03-27] MEDS: Multivitamin w/Minerals TAB 1 TAB PO (08:00)
[2020-03-27] MEDS: glipiZIDE C.R. 5 MG TABCR PO (08:00)
[2020-03-27] MEDS: Sertraline 50 MG TAB 200 MG PO (08:00)
[2020-03-27] MEDS: Lisinopril 20 MG TAB 40 MG PO (08:00)
[2020-03-27] MEDS: hydroCHLOROthiazide 25 MG TAB PO (08:00)
[2020-03-27] MEDS: Tamsulosin 0.4 MG CAPCR 0.8 MG PO (08:01)
--- NOTE | 2020-03-27 08:19 | OTIE_ITS ---
Occupational Therapy Notes Inpatient Occupational Therapy [facility] [place] 1 Evaluation Date: 03/27/20 Referring Doctor:Luis Felipe Cole MD OT Orders: Urgent Precautions: Fall, standard, full, No AROM to (R) shoulder. PATIENT PROFILE/ADMITTING DIAGNOSIS: Patient was admitted to [facility] via swing bed status. Pt is a 54 year old male who has been disabled recently by a CVA affecting left side. Patient received a rotator cuff repair, acromial decompression, extensive debridement on 03/24/[address] Cole. Past Medical History- Medical History (Updated 02/23/20 @ 19:11 by Ana Laura Fair DO) Anxiety Cerebrovascular accident (CVA) (03/19/17) Left hemiparesis 01/23 Depression Essential hypertension Exertional dyspnea History of alcoholism and drug abuse; at age 28-30 Hyperlipidemia NPDR with macular edema 05/26/19 SHIPPEE (L) EYE-kb 11/29/19 SHIPPEE B/L MEIL-kb Right rotator cuff tendonitis Injection: 04/29/2019 Type 2 diabetes mellitus Surgical History History of shoulder surgery One right shoulder Two left shoulder History of spinal surgery Right carpal tunnel syndrome (03/23/19) S/P ECTR Social History/Home Situation: Pt lives in a private home in his basement and is currently from his and possibly going through a divorce, his parents are currently staying with him in his apartment. He has no stairs to enter and no stairs throughout his living space. Pt reports that since his CVA he has been disabled due to decreased deficits in his (L) side upper and lower extremity function. His hobbies include mowing his lawn, firewood, building things, laundry and dishes. He likes to be functionally as (I) as possible. SUBJECTIVE: Pt was sitting in chair when OT arrived. He was agreeable to OT session and notes that he feels that he is doing well. OBJECTIVE: General Observation: Pleasant and able to answer questions appropriately. (R) shoulder bandages, supported on pillows in the seated position. Mental Status: A&Ox3 Pain: 3/10 pain in (R) shoulder ROM: RUE NT L UE AROM WFL at this time and increasing as pt utilizes his (L) UE more each day. STRENGTH: RUE NT LUE 3/5 throughout globally SENSATION: Decreased sensation to (L) UE due to CVA FUNCTIONAL MOBILITY/ADLS: Transfers SBA Sit-Stand (S) Stand-sit (S) BATHING sitting in chair with education provided to pt on use of long handled sponge and use of (L) UE for bathing routine. He does require (A) for bathing as he is unable to actively move his (R) UE due to precautions. DRESSING sitting in chair with min vc throughout Dressing UE Able to verbalize how to don and doff shirt with precautions and good body mechanics. Dressing LE sitting in chair pt was able to utilize sock aid with (L) UE and min (A) to don socks, with dressing stick pt was able to don shorts with min (A) and good technique. TOILETING Able to utilize commode and toilet, he does require (A) with toileting hygiene at this time. OT educates pt about adaptive equipment for toileting hygiene. 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 BALANCE: Static sitting Normal Dynamic Sitting Good Static Standing Good Dynamic Standing Good SPECIAL TESTS: Daily Activity Limitations Standardized Measure [facility] AM -PAC ?6 clicks? Daily Activity Inpatient Short Form: Raw score: 16 Standardized score: 35.96 CMS score: 50.11% INFORMED CONSENT/EDUCATION: Pt instructed in purpose of OT Consult and plan of care. ASSESSMENT: Patient is a 54-year-old male referred for OT services for diagnosis post-op assessment of pts ADLs after a shoulder surgery scheduled on 03/23/20 with a past medical hx of (L) hemiparesis. Patient presents with clinical signs and symptoms consistent with this diagnosis as demonstrated by the following impairment on the findings: 1. Decreased transfer and safety with standing position without (A) or (S) without his (R) UE, 2. Decreased flatwork assembler strength left upper extremity, 3. Decreased independence and ADL routine, 4. Decreased active range of motion left upper extremity, 5. Increased pain in his (R) UE both at rest and with functional activities which is decreasing his quality of life. Impairments contributing to the following functional limitations: 1. Decreased independence in sleep routine, 2. Increased pain in right upper extremity, 3. Difficulty performing heavy household activities, 4. Decreased gross motor movements for left upper extremity, 5. Decreased fine motor movements for left upper extremity, 6. Restrictions to (R) UE due to Surgical intervention. Patient is assessed as High 62418 complexity, based on the following: History: See past medical history Examination: See functional impairments as listed above Presentation: Evolving Decision-making: high complexity GOALS Goals x1 week 1. Transfers (S) 2. Dressing min (A) LE, (I) UE in seated position 3. Bathing sitting in chair (I) with (L) UE for abdomen, and (R) UE, mod (A) for (L) UE do to decreased use of (R) UE due to ROM restrictions. 4. Toileting (I) with toileting hygiene PLAN OF CARE/TREATMENT PLAN: 1x/day, 5 days/ week x 1week Initiate Occupational Therapy Services for bathing, dressing, grooming, toileting, eating, transfer training. DISCHARGE RECOMMENDATIONS Home with OT for assessment of ADLs in the home setting. TREATMENT TIME/MINUTES/CODES 16564, [id number], 45 minute (07:25) [facility]
--- NOTE | 2020-03-27 11:34 | PHA.REVIEW ---
Pharmacy Admission Review - Admission Clinical Review No Known Allergies Allergy (Verified 03/24/20 06:51) - Renal Dosing Medications needing adjustments: Reviewed (Crcl ~80 mL/min current meds okay.) - Anticoagulation DVT Prohphylaxis: Reviewed (has TEDs and SCDs ordered) Medications: Aspirin Therapeutic Anticoagulation: N/A - Opiate Usage Evaluate Pain Scale/Pains Meds: Reviewed Scheduled Bowel Reg ordered if on Opiates?: No (has PRN meds ordered) - Relevant Labs Electrolytes, C-Reactive P, ESR: Reviewed (K+ was 3.4 on the 16 others within normal limits.) - DM Control Insulin Dosing: Intervened (FSBG 257 on 03/25/2020. Currently has home meds ordered other than metformin as pt thought he had been taking this but neither of the pharmacies where he picks up meds had received a perscription for metformin. Provider is aware of this, med is on hold, and provider to talk to PCP about this.) - Heart Failure/PR EF%, ISABEL's, B-Blockers, Diuretics: N/A - BP Control BP Control: Blood Pressure 144/82 Blood Pressure 157/90 If elevated: Reviewed (BP elevated this morning prior to taking AM meds.) - Qtc Review If Elevated: N/A - IV to PO Switch IV Medications: Reviewed - Home Meds Home Med List reviewed: Intervened (Talked to provider about metformin (see note above). Multiple BUILDING PERFORMANCE CONSULTANT depressants. Sertraline may enhance the antiplatelet effect of naproxen; naproxen my diminish the therapeutic effects of sertraline. Naproxen may increase bleed risk of aspirin; aspirin may decrease the serum concentration of naproxen) Relevent Home Meds Not ordered & why?: metformin (hold per provider) - Current meds Current Medication Order Review: Reviewed - Comments Comments/Follow Ups: Watch BP, BG, K+ and for med changes.
--- NOTE | 2020-03-27 14:32 | CHAPLAIN ---
Shadi was sitting up in a chair when I visited. He easily engaged in a conversation and was very comfortable talking. He shared some personal history and told me about his right shoulder surgery. His leftr said was affected by a stroke three years ago. He has six kids from fourth grade through college graduates. He and his a year or so ago, but haven't been able to communicate in person because of COVID. 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 He said his kids call Mirian Vela, and he and his try to support Mirian when she needs help as well. Yesterday he was visited by the on-call thermal cutting tracer machine operator, Chun Sheriff.
[2020-03-27] MEDS: Acetaminophen 325 MG TAB 650 MG PO (14:56)
[2020-03-27] MEDS: oxyCODONE 5 MG TAB PO ×2 (14:56→21:24)
--- NOTE | 2020-03-27 15:39 | PTTR_ITS ---
Date of service: 03/27/20 Time of Service: 10:10 PT Notes Visit Reasons: RIGHT SHOULDER ROTATOR CUFF TEAR Inpatient Physical Therapy Treatment Note [facility] Date: 03/27/2020 PRECAUTIONS: Fall, NWB on R UE SUBJECTIVE: Shadi is pleasant and agreeable to participating in PT. He states that he is feeling good and is not experiencing much pain at this point. He feels that he could be ready to be discharged to home as early as tomorrow. His main concern is being able to wipe myself at home. He reports that he found a tool that he believes will work well for this. OBJECTIVE: PAIN: Patient rates his R shoulder pain as a 2/10 in a.m., and as barely there in p.m. BED MOBILITY/TRANSFERS Supine-sit: I with HOB flat Sit-supine: I with HOB flat Sit-stand: I Stand-sit: I Bed-Chair: S in a.m.; I in p.m. Chair-bed: S in a.m.; I in p.m. GAIT Assistive Device: No AD Weight bearing: Full/NWB on R UE Assist: SBA in a.m.; S in p.m. Distance: 50' + 150' in a.m.; 560' in p.m. Deviation: Appropriate pacing, mild ataxic gait THEREX: Performed PROM to R UE including: shoulder flexion, elbow flexion/extension, forearm supination/pronation, and wrist flexion/extention x1- 2 minutes each. STAIRS: Patient reports that he will not need to negotiate stairs/steps at home, that he lives in walk-in basement. ASSESSMENT: Patient tolerated session well, without complaint. He was able to demonstrate appropriate pacing and steady gait, without use of assistive device. PLAN: Continue as per protocol. TREATMENT CODE/TIME: Session 1: 30 minutes; 62590 x2 Session 2: 20 minutes; 72763
[2020-03-27 15:45] VITALS: BP 118/69; PULSE 88; RESP 18; TEMP 36.6; O2SAT 96
[2020-03-27 19:10] VITALS: BP 106/72; PULSE 82; RESP 19; TEMP 36.8; O2SAT 97
[2020-03-27] MEDS: Atorvastatin 40 MG TAB PO (20:13)
[2020-03-27 23:25] VITALS: BP 138/79; PULSE 72; RESP 17; TEMP 37.5; O2SAT 95
[2020-03-28 07:08] VITALS: BP 152/91; PULSE 79; RESP 18; TEMP 37.1; O2SAT 96
--- NOTE | 2020-03-28 07:50 | DSE_ITS ---
Date of service: 03/28/20 Time of Service: 07:50 DS: Diagnosis Discharge Diagnosis (1) Contracture of right shoulder: Status: Acute (2) Impingement syndrome of right shoulder: Status: Acute (3) Tendonitis of long head of biceps brachii of right shoulder: Status: Acute (4) Bursitis of right shoulder: Status: Acute (5) Complete tear of right rotator cuff: Status: Acute Discharge Plan Disposition Patient Disposition: HOME Condition: Stable Discharge Details Reason For Visit: RIGHT SHOULDER ROTATOR CUFF TEAR Admit Date/Time: 03/25/20 10:34 Admit Provider: Luis Felipe Cole Attending Provider: Luis Felipe Cole Primary Care Provider: [facility] Hospital Course: Right shoulder RCR surgery on 03/24/2020. Postoperative course uncomplicated. Home Meds and New Rx's Prescriptions: Continued tamsulosin [Flomax] 0.4 mg capsule 0.8 mg PO DAILY Qty: 180 RF: 3 glipizide [Glucotrol XL] 5 mg tablet extended release 24hr 5 mg PO DAILY Qty: 90 RF: 3 (DME) Blood Glucose Test strip 1 ea Miscellaneous QID Qty: 400 RF: 12 polyethylene glycol 3350 17 gram powder in packet 17 gm PO DAILY PRN PRN (Reason: constipation) Qty: 1 RF: 6 aspirin 325 mg tablet 325 mg PO DAILY Qty: 90 RF: 3 (DME) lancets 28 gauge misc 1 ea Miscellaneous QID Qty: 400 RF: 12 amlodipine 5 mg tablet 5 mg PO DAILY Qty: 90 RF: 4 atorvastatin [Lipitor] 40 mg tablet 40 mg PO QPM Qty: 90 RF: 3 hydrochlorothiazide 25 mg tablet 25 mg PO DAILY Qty: 90 RF: 4 lisinopril 40 mg tablet 40 mg PO DAILY Qty: 90 RF: 3 sertraline 100 mg tablet 200 mg PO DAILY Qty: 180 RF: 3 meclizine 12.5 mg tablet 12.5 mg PO TID PRN (Reason: dizziness) Qty: 14 RF: 0 naproxen 250 mg tablet 250 - 500 mg PO BID PRN (Reason: Moderate pain or swelling) Qty: 60 RF: 0 oxycodone 5 mg tablet 5 - 10 mg PO Q4H PRN (Reason: moderate to severe pain) Qty: 22 RF: 0 Discontinued metformin 1,000 mg tablet 1,000 mg PO BID Qty: 180 RF: 3 Discharge Instructions Additional Instructions: Surgery: Shoulder arthroscopy with massive rotator cuff repair, biceps tenodesis, extensive debridement, contracture release, and subacromial decompression. Activity: You should keep your arm at your side in a neutral position at all times except for physical therapy. Do not try to lift or raise your arm using your own muscles. You should use the sling whenever you are out of the house. You may have to adjust the abduction pillow or remove it for comfort. At home it is best to remove the sling and rest the arm on a pillow at your side or support the operative side with your other hand. You may allow the arm to dangle at your side. A physical therapy prescription will be sent [facility] and home health services arranged on discharge. Prescriptions: Aspirin 325 mg resume 1 daily starting the day after surgery Naproxen 250 mg take 1-2 every 12 hours with a meal as needed for moderate pain Oxycodone 5 mg take 1-2 every 4-6 hours as needed for severe pain You may use [id number] Tylenol (acetaminophen) as needed for mild pain. These pain medications may be taken all at once or in different combinations as needed. Also, recommend Colace (docusate) as a stool softener as surgery and pain medicine cause constipation. Dressings: Leave the sticky Steri-Strips in place until they fall off or remove them after you shower. Cover the incisions with Band-Aids or leave them open to air. You may shower after 7 days. Follow-up: 10-[address] Cole (04/05/2020 at 3 PM) You may take off the leg compression stockings this evening at home. You may also leave them on a few days longer if you have a history of leg swelling or edema. Let us know right away if you develop any redness, drainage, fevers, chest pain, or trouble breathing. Do not drink alcohol or drive for at least 24 hours after anesthesia. Please call the office during business hours with any questions or concerns. Referrals: Luis Felipe Cole MD [ [facility] STAFF PHYSICIAN] - Activity:: RCR Equipment/Supplies:: Sling immob Diet:: As Tolerated Discharge Orders Discharge Orders: Discharge Order (Routine); Ordered 03/28/20 Ordered By: Luis Felipe Cole DS: Summary Status at Discharge Functional status at discharge: uses cane/walker Overall status at discharge: patient is progressing back to baseline Mental Status: mental status grossly normal Speech and Movement: speech and movement normal Mood: congruent mood Affect: normal affect Exam Narrative Exam Narrative: Alert, oriented, and comfortable. No complaints. Breathing comfortably. Talking in complete sentences. No cough or shortness of breath. No signs of lower extremity DVT swelling or calf pain Right shoulder dressing clean dry intact - removed and replaced with Band-Aids Demonstrates active motor throughout the distal right upper extremity with resolved sensory nerve paresthesias 2+ radial pulse. Regular rate and rhythm. Psych Mental Status: mental status grossly normal Speech and Movement: speech and movement normal Mood: congruent mood Affect: normal affect DS: Data Vitals/I&O Vitals and I&O: Vital Signs Temperature 98.8 F 03/28/20 07:08 Temperature Source Tympanic 03/28/20 07:08 Pulse 79 03/28/20 07:08 Pulse Rhythm Regular 03/27/20 20:53 Respiratory Rate 18 03/28/20 07:08 Respiratory Effort Non-Labored 03/27/20 20:53 Respiratory Depth Normal 03/27/20 20:53 Respiratory Pattern Normal 03/27/20 20:53 Blood Pressure 152/91 H 03/28/20 07:08 Pulse Oximetry 96 03/28/20 07:08 Oxygen Delivery Method Room Air 03/28/20 07:08 Oxygen Flow Rate 0 03/28/20 07:08 Pain Level 3 03/28/20 07:08 Intake & Output 03/27/20 03/27/20 03/28/20 11:59 23:59 11:59 Intake Total 360 / 1080 720 / 1080 Output Total 1050 / 1400 350 / 1400 600 / 600 Balance -690 / -320 370 / -320 -600 / -600 Weight 216 lb 11.43 oz Intake: Oral 360 / 1080 720 / 1080 Output: Urine 1050 / 1400 350 / 1400 600 / 600 Other: Urine Color Yellow Yellow Light Viry Urine Appearance Clear Clear Clear Urine Odor None Normal Normal Comment pt voided in the bathroom Stool Size Large Voiding Methods Toilet Urinal Urinal [facility] Medical History Anxiety Cerebrovascular accident (CVA) (03/19/17) Left hemiparesis 01/23 Depression Essential hypertension Exertional dyspnea History of alcoholism and drug abuse; at age 28-30 Hyperlipidemia NPDR with macular edema 05/26/19 SHIPPEE (L) EYE-kb 11/29/19 SHIP[facility]E B/L MEIL-kb Right rotator cuff tendonitis Injection: 04/29/2019 Type 2 diabetes mellitus Surgical History History of shoulder surgery One right shoulder Two left shoulder History of spinal surgery Right carpal tunnel syndrome (03/23/19) S/P ECTR Family History Mother No problems noted. Father No problems noted. Sister No problems noted. Sister No problems noted. Sister No problems noted. Sister No problems noted. Grandfather Diabetes Heart disease Grandfather Personal history of malignant neoplasm Grandmother Personal history of malignant neoplasm BREAST Grandmother Personal history of malignant neoplasm Social History Smoking/Tobacco Use Status: Former Tobacco Use Quit Date: 06/09/79 Alcohol Intake: former Drug use: Occasionally Substance use type: other Details: Occasionally uses CBD in coffee. 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
--- NOTE | 2020-03-28 07:50 | PDOC.HHF2F ---
Home Health Certification Home Health Certification: 1. Encounter Date and Reason I certify that ADRIANNA GREGORY was seen by Luis Felipe Cole MD on 03/28/20 and that I had a [id number] encounter with this patient that meets the physician face to face encounter requirements. 2. Clinical Findings Supporting Skilled Need and Homebound Status I certify that home health services are medically necessary, include either intermittent long-term and/or physical/speech therapy, and that this patient is homebound in that absences from the home require considerable and taxing effort and are infrequent or of short duration, or are attributable to the need to receive medical care. [X] (a) Attached documentation from encounter provides clinical findings supporting skilled need and homebound status (including what assistance patient requires to leave the home). The encounter with the patient was in whole, or in part, for the following medical condition, which is the primary reason for home health care: RIGHT SHOULDER ROTATOR CUFF TEAR Jail: Physical Therapy: Gentle passive range of motion to the operative shoulder as per standard protocol. Full active range of motion to the elbow/biceps, fingers, and hand. Transition to outpatient physical therapy in approximately 2 to 3 weeks. Occupational Therapy: Assessment of/daily assistance with ADLs in the home setting. Homebound: 3. Certification and Authentication I certify that I composed the above information based on my clinical judgement relating to this patient's medical condition and, if applicable, clinical findings communicated to me by the NPP or inpatient physician who performed the Home Health Referral. All further orders will be obtained through Luis Felipe Cole MD (Community Based orthopedic physician)
--- NOTE | 2020-03-28 08:01 | OT.INTREAT ---
Date of service: 03/28/20 Time of Service: 07:10 Occupational Therapy Notes Occupational Therapy Inpatient Treatment Note Date: 03/28/20 PRECAUTIONS: Fall, Standard, no AROM (R) UE, Full SUBJECTIVE: Pt was sitting in chair when OT arrived, he reports that he feels that his nerve block has worn off but that he is tolerating his pain well. He states that his mom is coming this morning to bring him his toileting tool. OBJECTIVE: PAIN:3/10 pain in (R) shoulder FUNCTIONAL MOBILITY Sit-stand: (S) Stand-sit: (I) Bed-Chair: (I) BATHING: sitting in chair with max (A) Set up/clean up Upper Body: (I) with good technique for (L) UE to wash (R) UE, he is max (A) to wash his (L) UE due to ROM restrictions, min (A) with abdomen. Lower Body: (I) with (L) UE to wash his (L) LE, he requires max (A) to wash his (R) LE DRESSING: sitting in chair Upper Extremity: Min (A) with [facility] gown TOILETING: Device: toilet Assist: (I) for urinating. ASSESSMENT/PLAN: Pt is performing his functional ADLs with increased (I). He is able to utilize his (L) but does require (A) as his (L) UE is also limited in function. He was able to demonstrate functional (I) with toileting routine, toileting hygiene post bowel movement remains an issue as his (L) UE only touches the back of his lower back. He was educated on adaptive equipment. He is an active participant and wants to be as functionally (I) as possible to ease the burden on his parents. Pt states that he is getting a shower bench and is working on getting a commode for night time. This will increase his safety and functional (I) with his toileting routines at night time. TREATMENT CODES/TIME: [id number], 25 minutes (07:10) Lianne Culver, OTR/L [facility]
--- NOTE | 2020-03-28 08:23 | W.PSYCHCONSU ---
Date of service: 03/27/20 History of Present Illness History of Present Illness Chief Complaint: depression Narrative: New Impatient Psychiatric Consultation Information source: chart, medical team Primary Care Provider: Joshua Small MD Reason for consultation: Luis Felipe Bailey MD requested consultation for Shadi Pak to evaluate depression and its impact on his post-surgical recovery. History Of Present Illness: Shadi has many psychosocial stressors in setting of history CVA and current surgery for rotator cuff repair. Dr. Bailey upon admitting Mr. Pak over the weekend for recovery from surgery was concerned about his depressive symptoms. I reviewed the chart and see that patient is well connected with his PCP and behavioral health at [facility]. He also has an outpatient therapist. I spoke with Kesha Rubi who is his Clinical Nurse Specialist for this admission and she reports that his spirits are good and he is strongly engaged in PT/OT and adaptive equipment to gain as much independence as possible. She stated plans to contact [facility] Crisis luis fernando to meet with patient during this admission to be sure no acute mental health safety issues and to make the connection should he need supports once discharged. I reviewed my finding with Dr. Bailey by phone and he agreed that psychiatry consultation was no longer necessary while pt is inpatient now that further information about his outpatient supports are known. Assessment and Plan Assessment and plan (1) Depression: Status: Chronic Assessment and plan: Recommendations: Discharge home when physically ready with established mental health supports in place. Dr. Small, his primary care provider, is welcome to contact me or refer Mr. Pak to me for consultation as an outpatient should concerns about insufficiently treated depression recur. I will communicate this note with Dr. Small and with Christiano Thomas LCSW. Qualifiers: Depression Type: unspecified Qualified Code(s): F32.9 - Major depressive disorder, single episode, unspecified [facility] Medical History Anxiety Cerebrovascular accident (CVA) (03/19/17) Left hemiparesis 01/23 Depression Essential hypertension Exertional dyspnea History of alcoholism and drug abuse; at age 26-30 Hyperlipidemia NPDR with macular edema 05/26/19 [facility]E (L) EYE-kb 11/29/19 [facility] B/L MEIL-kb Right rotator cuff tendonitis Injection: 04/29/2019 Type 2 diabetes mellitus Surgical History History of shoulder surgery One right shoulder Two left shoulder History of spinal surgery Right carpal tunnel syndrome (03/23/19) S/P ECTR Family History Mother No problems noted. Father No problems noted. Sister No problems noted. Sister No problems noted. Sister No problems noted. Sister No problems noted. Grandfather Diabetes Heart disease Grandfather Personal history of malignant neoplasm Grandmother Personal history of malignant neoplasm BREAST Grandmother Personal history of malignant neoplasm Social History Smoking/Tobacco Use Status: Former Tobacco Use Quit Date: 06/09/79 Alcohol Intake: former Drug use: Occasionally Substance use type: other Details: Occasionally uses CBD in coffee. 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
--- NOTE | 2020-03-28 08:28 | INDS_ITS ---
Date of service: 03/28/20 Time of Service: 08:28 PT Notes Visit Reasons: RIGHT SHOULDER ROTATOR CUFF TEAR PT Inpatient Discharge Summary Date: 03/30/20 Dates of Service: 03/26/2020 through 03/28/2020 This is a clinical summary of care provided on the duration of dates listed above. No charge was made in the completion of this documentation. Referring Doctor: Luis Felipe Cole MD PT Orders: PT CONSULT: Evaluate and treat Precautions: Standard, limited left UE use, NWB through right UE Patient Profile/Admitting Diagnosis: Patient admitted to swing bed status. Orders received for this 54 year old male who has been disabled recently by a CVA affecting left side. 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 He is an active father of several children. He has been noticing increased dysfunction and pain through the right upper extremity most likely the overuse due to the limited ability of the left. Due to the continued dysfunction and functional limitations through the extremity patient for shoulder surgery which was completed at [facility]. Patient received rotator cuff repair, acromial decompression, extensive debridement. Patient has been admitted due to his limited upper extremity involvement and see whether or not he can complete independent functional ADL once returning home. PMHX: Medical History (Updated 02/23/20 @ 19:11 by Ana Laura Fair DO) Anxiety Cerebrovascular accident (CVA) (03/19/17) Left hemiparesis 01/23 Depression Essential hypertension Exertional dyspnea History of alcoholism and drug abuse; at age [age] Hyperlipidemia NPDR with macular edema 05/26/19 SHIPPEE (L) EYE-kb 11/29/19 SHIP[facility]E B/L MEIL-kb Right rotator cuff tendonitis Injection: 04/29/2019 Type 2 diabetes mellitus Surgical History History of shoulder surgery One right shoulder Two left shoulder History of spinal surgery Right carpal tunnel syndrome (03/23/19) S/P ECTR Social History/Home Situation: Currently lives in a basement apartment at his parents home. Equipment Owned/DME: UE sling on R side Subjective: NT. See most recent CLINICAL LABORATORY SERVICE TEACHER notes. Objective: NT. See most recent CLINICAL LABORATORY SERVICE TEACHER notes. Mental Status: NT. See most recent CLINICAL LABORATORY SERVICE TEACHER notes. Pain: NT. See most recent CLINICAL LABORATORY SERVICE TEACHER notes. ROM: Right Upper Extremity: Not to due to acuity Left Upper Extremity: Active shoulder range of motion to 90 degrees of flexion, 70 degrees of abduction, limited internal and external rotation. Spasticity and tone patient tends to internally rotate through the humerus on the left side with any sort of act flexion raise Right Lower Extremity: Within functional limits Left Lower Extremity: Within functional limits Strength: Right Upper Extremity: NT Left Upper Extremity: Shoulder flexion 4-5, elbow flexion internal rotation of the shoulder is 4+ out of 5, Right Lower Extremity: Grossly 5 out of 5 Left Lower Extremity: Grossly 5 out of 5 Bed Mobility/Transfers: Supine-sit: Independent Sit-stand: Independent Stand-sit: Independent Bed-chair: Independent Gait: 520 feet without AD with FWB requiring supervision without AD. AFO no longer fits patient. No LOB seen despite no AFO. UP and down three 4-inch and two 6-inch steps with step-to gait pattern requiring SBA. Balance: Static Sitting: Normal Dynamic Sitting: Normal Static Standing: Normal Dynamic Standing: Good ASSESSMENT: Shadi demonstrates functional mobility improvements as indicated in the discharge mobility level above and the goal status below. Goals: Goals X1 week 1. Supine-Sit independent including with bed linen MET 2. Sit-Supine independent including with bed linen MET 3. Sit-Stand Independent MET 4. Stand-Sit Independent MET 5. Gait Up to 300 feet without restriction and supervision MET 6: Stairs SUpervision up to 3 steps MET 7: Independent in Home program MET DISCHARGE RECOMMENDATIONS: To home once medically stable and able to complete independent functional mobility goals. Patient will benefit from outpatient PT services in order to progress mobility level using least restrictive assistive ambulatory device, assess home safety, identify additional equipment needs, and establish a functional maintenance program that will increase ability of patient to remain at home. TREATMENT CODE/TIME: NC Thank you for the opportunity to participate in the care of this patient. Amie Lanier PT, DPT, CLT [facility] [place], [place]
[2020-03-28] MEDS: Multivitamin w/Minerals TAB 1 TAB PO (08:36)
[2020-03-28] MEDS: Tamsulosin 0.4 MG CAPCR 0.8 MG PO (08:36)
[2020-03-28] MEDS: glipiZIDE C.R. 5 MG TABCR PO (08:36)
[2020-03-28] MEDS: Aspirin E.C. 325 MG TABEC PO (08:36)
[2020-03-28] MEDS: Sertraline 50 MG TAB 200 MG PO (08:36)
[2020-03-28] MEDS: Lisinopril 20 MG TAB 40 MG PO (08:37)
[2020-03-28] MEDS: amLODIPine 5 MG TAB PO (08:37)
[2020-03-28] MEDS: hydroCHLOROthiazide 25 MG TAB PO (08:37)
--- NOTE | 2020-03-28 12:49 | PT.INTREAT ---
Date of service: 03/28/20 Time of Service: 10:15 PT Notes Visit Reasons: RIGHT SHOULDER ROTATOR CUFF TEAR Inpatient Physical Therapy Treatment Note [facility] Date: 03/28/2020 PRECAUTIONS: Fall, NWB R UE, limited use of L UE SUBJECTIVE: Shadi is excited that he is discharging to home today. He also reports that he was able to toilet and clean himself up, which he is happy about. OBJECTIVE: Patient was reminded and educated on the importance of very limited use of R UE, as well as utilizing sling while transferring and with ambulation. PAIN: No c/o pain BED MOBILITY/TRANSFERS Sit-stand: I Stand-sit: I Bed-Chair: I Chair-bed: I GAIT Assistive Device: No AD Weight bearing: NWB on R UE Assist: S Distance: 520' Deviation: Appropriate pacing, ataxic gait (which is patient's baseline) STAIRS: Up/down 3x4 and 2x6 using L rail and a step-to pattern with SBA ASSESSMENT: Patient tolerated session well without complaint. He continues to demonstrate appropriate pacing and steady gait with mild ataxia without use of assistive device. PLAN: Continue as per protocol on an outpatient basis. TREATMENT CODE/TIME: 15 minutes; [id number]
--- NOTE | 2020-03-28 13:44 | CMDISCH_ITS ---
- If Service Date Differs Date of service: 03/28/20 Time of Service: 13:44 LACE Index Scoring Tool - Questions: Length of Stay (in days): 4 - 6 Acuity (Admit via E.D.?): No Comorbidities: Cerebrovascular Disease, Diabetes w/o Complication E.D. Visits: 1 - Answers: Total Score: 7 Risk of Readmission: Low Risk Care Management Discharge Reason for Hospitalization: Right Shoulder Rotator Cuff Tear Discharge Plan: Shadi will return home with his parent's support today. His parents will drive him home via private vehicle. He will have new PT/OT. CM informed [facility] of the new services. He will follow up with Ortho and his discharge plan of care. He is happy to be going home. Patient/Family Education Needs: Review discharge instructions regarding activity levels and medications, discussion of self care needs including ask me three. Services Needed at Discharge: Home Health Care Services ([facility] PT/OT)
--- NOTE | 2020-03-29 07:49 | OTDS_ITS ---
Date of service: 03/29/20 Time of Service: 07:50 Occupational Therapy Notes Occupational Therapy Inpatient Discharge Summary Date: 03/29/20 Dates of Service: 03/27/20-03/29/20 Referring Doctor:Luis Felipe Cole MD OT Orders: Urgent Precautions: Fall, standard, full, No AROM to (R) shoulder. *This document serves as a summary of care, no skilled OT services were provided for this documentation* PATIENT PROFILE/ADMITTING DIAGNOSIS: Patient was admitted to [facility] via swing bed status. Pt is a 54 year old male who has been disabled recently by a CVA affecting left side. Patient received a rotator cuff repair, acromial decompression, extensive debridement on 03/24/[address] Cole. Past Medical History- Medical History (Updated 02/23/20 @ 19:11 by Ana Laura Fair DO) Anxiety Cerebrovascular accident (CVA) (03/19/17) Left hemiparesis 01/23 Depression Essential hypertension Exertional dyspnea History of alcoholism and drug abuse; at age 26-30 Hyperlipidemia NPDR with macular edema 05/26/19 [facility] (L) EYE-kb 11/29/19 [facility] B/L MEIL-kb Right rotator cuff tendonitis Injection: 04/29/2019 Type 2 diabetes mellitus Surgical History History of shoulder surgery One right shoulder Two left shoulder History of spinal surgery Right carpal tunnel syndrome (03/23/19) S/P ECTR Social History/Home Situation: Pt lives in a private home in his basement and is currently from his and possibly going through a divorce, his parents are currently staying with him in his apartment. He has no stairs to enter and no stairs throughout his living space. Pt reports that since his CVA he has been disabled due to decreased deficits in his (L) side upper and lower extremity function. His hobbies include mowing his lawn, firewood, building things, laundry and dishes. He likes to be functionally as (I) as possible. SUBJECTIVE: NT OBJECTIVE: ROM: RUE NT L UE AROM WFL at this time and increasing as pt utilizes his (L) UE more each day. STRENGTH: RUE NT LUE 3/5 throughout globally SENSATION: Decreased sensation to (L) UE due to CVA FUNCTIONAL MOBILITY/ADLS: Transfers SBA Sit-Stand (S) Stand-sit (S) BATHING sitting in chair with education provided to pt on use of long handled sponge and use of (L) UE for bathing routine. He does require (A) for bathing as he is unable to actively move his (R) UE due to precautions. DRESSING sitting in chair with min vc throughout Dressing UE Able to verbalize how to don and doff shirt with precautions and good body mechanics. Dressing LE sitting in chair pt was able to utilize sock aid with (L) UE and min (A) to don socks, with dressing stick pt was able to don shorts with min (A) and good technique. TOILETING Able to utilize commode and toilet, he does require (A) with toileting hygiene at this time. OT educated pt about adaptive equipment for toileting hygiene. 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 BALANCE: Static sitting Normal Dynamic Sitting Good Static Standing Good Dynamic Standing Good ASSESSMENT: Patient is a 54-year-old male referred for OT services for diagnosis post-op assessment of pts ADLs after a shoulder surgery scheduled on 03/23/20 with a past medical hx of (L) hemiparesis. Pt was seen for 2 skilled OT sessions and was able to make increased gains in terms of his functional (I) and was discharged home with services on 03/28/20. GOALS Goals x1 week 1. Transfers (S)- met 2. Dressing min (A) LE, (I) UE in seated position- not met 3. Bathing sitting in chair (I) with (L) UE for abdomen, and (R) UE, mod (A) for (L) UE do to decreased use of (R) UE due to ROM restrictions.- met 4. Toileting (I) with toileting hygiene- progressing towards PLAN OF CARE/TREATMENT PLAN: Discharge from OT services. DISCHARGE RECOMMENDATIONS Home with OT for assessment of ADLs in the home setting. TREATMENT TIME/MINUTES/CODES N/A Lianne Culver, OTR/L [facility] [place]
== END 2020-03-28 12:56 | disposition home or self-care (01) | DRG 560 ==
PROVIDERS: Admitting Provider Student in an Organized Health Care Education/Training Program; PCP Emergency Medicine; Visit Provider Student in an Organized Health Care Education/Training Program
DX: Z47.89 Encounter for other orthopedic aftercare (principal); I69.354 Hemiplegia and hemiparesis following cerebral infarction affecting left non-dominant side; M75.121 Complete rotator cuff tear or rupture of right shoulder, not specified as traumatic; M75.21 Bicipital tendinitis, right shoulder; M24.511 Contracture, right shoulder; F32.9 Major depressive disorder, single episode, unspecified; Z86.73 Personal history of transient ischemic attack (TIA), and cerebral infarction without residual deficits; F41.9 Anxiety disorder, unspecified; I10 Essential (primary) hypertension; E78.5 Hyperlipidemia, unspecified; F10.21 Alcohol dependence, in remission; F19.11 Other psychoactive substance abuse, in remission; E11.65 Type 2 diabetes mellitus with hyperglycemia
CPT/HCPCS: 97162; 97167; 97530; 97535; NC

== ENCOUNTER 2020-06-28 12:38 | Outpatient (REF) | payer MEDICAID, SELFPAY ==
[2020-06-28 13:50] LABS: Anion Gap 9.3 mmol/L (3-11); BUN 24 mg/dL (7-18); CO2 27.7 mmol/L (21.0-32.0); CREATININE 1.09 mg/dL (0.70-1.30); Calcium 9.3 mg/dL (8.5-10.1); Chloride 100 mmol/L (98-107); Glucose 226 mg/dL (74-106); Potassium 3.6 mmol/L (3.5-5.1); Sodium 137 mmol/L (136-145)
[2020-06-28 14:36] LABS: Hemoglobin A1C 7.1 % (<5.7)
== END 2020-06-28 12:58 ==
LOC: NCHCN 12:38
PROVIDERS: PCP Emergency Medicine; Visit Provider Emergency Medicine
DX: I10 Essential (primary) hypertension (principal); E11.9 Type 2 diabetes mellitus without complications
CPT/HCPCS: 80048; 83036

== ENCOUNTER 2021-01-09 03:47 | Outpatient (CLI) | payer MEDICAID, SELFPAY ==
[2021-01-09 12:25] LABS: BUN 16 mg/dL (7-18); CREATININE 1.1 mg/dL (0.70-1.30); Calcium 8.8 mg/dL (8.5-10.1); Calculated LDL 128 mg/dL (<100); Chloride 102 mmol/L (98-107); Cholesterol 203 mg/dL (<200); Glucose 220 mg/dL (74-106); HDL Cholesterol 40 mg/dL (40-60); Potassium 4.5 mmol/L (3.5-5.1); Sodium 140 mmol/L (136-145); Triglyceride 176 mg/dL (<150)
[2021-01-09 12:54] LABS: COMMENT (LAB VIEW ONLY) 178.41 mg/dL; Microalb ug/mg Crea 2.9 ug/mg Cr
== END 2021-01-09 03:48 | disposition home or self-care (01) ==
LOC: LOS 03:48
PROVIDERS: PCP Emergency Medicine; Visit Provider Emergency Medicine
DX: I10 Essential (primary) hypertension (principal); E78.5 Hyperlipidemia, unspecified; E11.9 Type 2 diabetes mellitus without complications
CPT/HCPCS: 36415; 80048; 80061; 82043; 82570; 83036

== ENCOUNTER 2021-07-03 04:10 | Outpatient (CLI) | payer MEDICARE, MEDICAID, SELFPAY ==
[2021-07-03 14:51] LABS: Hemoglobin A1C 8.4 % (<5.7)
[2021-07-03 16:14] LABS: Anion Gap 8.3 mmol/L (3-11); BUN 15 mg/dL (7-18); CO2 28.7 mmol/L (21.0-32.0); CREATININE 1.1 mg/dL (0.70-1.30); Calcium 9.4 mg/dL (8.5-10.1); Calculated LDL 122 mg/dL (<100); Chloride 102 mmol/L (98-107); Cholesterol 209 mg/dL (<200); Glucose 256 mg/dL (74-106); HDL Cholesterol 39 mg/dL (40-60); Potassium 3.9 mmol/L (3.5-5.1); Sodium 139 mmol/L (136-145); Triglyceride 242 mg/dL (<150)
== END 2021-07-03 04:11 | disposition home or self-care (01) ==
LOC: LBO 04:10
PROVIDERS: PCP Family Medicine; Visit Provider Emergency Medicine
DX: I10 Essential (primary) hypertension (principal); E78.5 Hyperlipidemia, unspecified; E11.9 Type 2 diabetes mellitus without complications; N40.1 Benign prostatic hyperplasia with lower urinary tract symptoms; Z63.5 Disruption of family by separation and divorce
CPT/HCPCS: 36415; 80048; 80061; 99214; 83036

== ENCOUNTER 2021-10-05 02:12 | Outpatient (CLI) | payer MEDICARE, MEDICAID, SELFPAY ==
[2021-10-05 12:43] LABS: HCT 42.5 % (40.0-50.0); HGB 13.6 g/dL (13.5-17.5); MCH 26.6 pg (27.0-33.0); MCV 83 fL (80-95); MPV 10.9 fL (8.0-11.0); Platelet Count 147 10^3/uL (130-400); RBC 5.12 10^6/uL (4.36-5.78); RDW 13.9 % (11.8-14.1); RDW-SD 42.4 fL; WBC 7.35 10^3/uL (4.4-10.8)
[2021-10-05 13:00] LABS: Hemoglobin A1C 6.2 % (<5.7)
[2021-10-05 13:06] LABS: ALT 34 U/L (16-63); AST 25 U/L (15-37); Albumin 4.5 g/dL (3.4-5.0); Alkaline Phosphatase 85 U/L (46-116); Anion Gap 8.6 mmol/L (3-11); BUN 27 mg/dL (7-18); Bilirubin, Total 0.5 mg/dL (0.2-1.0); CO2 28.4 mmol/L (21.0-32.0); Calculated LDL 63 mg/dL (<100); Chloride 103 mmol/L (98-107); Cholesterol 131 mg/dL (<200); Glucose 228 mg/dL (74-106); HDL Cholesterol 35 mg/dL (40-60); Sodium 140 mmol/L (136-145); Total Protein 7.3 g/dL (6.4-8.2); Triglyceride 166 mg/dL (<150)
[2021-10-05 13:11] LABS: COMMENT (LAB VIEW ONLY) 256.07 mg/dL; Microalb ug/mg Crea 4.7 ug/mg Cr
[2021-10-05 22:35] LABS: PSA, Screening 0.1 ng/mL (<=3.5)
[2021-10-08 10:16] LABS: HIV-1/2 Ag & Ab Screen Negative (Negative)
[2021-10-08 10:25] LABS: Hepatitis C Ab w Rflx HCV PCR Negative (Negative)
== END 2021-10-05 02:13 | disposition home or self-care (01) ==
LOC: LOS 02:12
PROVIDERS: PCP Family Medicine; Visit Provider Family Medicine
DX: D64.9 Anemia, unspecified (principal); E11.9 Type 2 diabetes mellitus without complications; E78.5 Hyperlipidemia, unspecified; I10 Essential (primary) hypertension; Z11.59 Encounter for screening for other viral diseases; Z11.4 Encounter for screening for human immunodeficiency virus [HIV]; Z12.5 Encounter for screening for malignant neoplasm of prostate
CPT/HCPCS: 36415; 80053; 80061; 84153; 85027; 86803; 87389; 82043; 82570; 83036

== ENCOUNTER → 2021-10-10 14:22 | Outpatient (BNVA) | payer MEDICARE, MEDICAID, SELFPAY | PROVIDERS: PCP Family Medicine; Referring Provider Family Medicine; Visit Provider Nurse Practitioner Gerontology | DX: N40.1 Benign prostatic hyperplasia with lower urinary tract symptoms (principal); R35.0 Frequency of micturition | CPT/HCPCS: 51798; 99214 ==

== ENCOUNTER 2022-07-25 15:13 | Outpatient (REF) | payer OTHER, MEDICAID, SELFPAY | END 2022-07-25 15:14 | disposition home or self-care (01) | LOC: LBN 15:13 | PROVIDERS: PCP Nurse Practitioner Family; Visit Provider Nurse Practitioner Family | DX: E11.9 Type 2 diabetes mellitus without complications (principal) | CPT/HCPCS: 82043; 82570 ==

== ENCOUNTER 2022-08-07 02:53 | Outpatient (CLI) | payer OTHER, MEDICAID, SELFPAY ==
[2022-08-07 12:31] LABS: CREATININE 1.2 mg/dL (0.70-1.30); Calculated LDL 55 mg/dL (<100); Cholesterol 116 mg/dL (<200); HDL Cholesterol 45 mg/dL (40-60); Potassium 3.6 mmol/L (3.5-5.1); Triglyceride 84 mg/dL (<150)
[2022-08-07 22:57] LABS: PSA, Screening 0.2 ng/mL (<=3.5)
== END 2022-08-07 02:54 | disposition home or self-care (01) ==
PROVIDERS: PCP Nurse Practitioner Family; Visit Provider Nurse Practitioner Family
DX: I10 Essential (primary) hypertension (principal); E78.5 Hyperlipidemia, unspecified; N40.1 Benign prostatic hyperplasia with lower urinary tract symptoms; Z12.5 Encounter for screening for malignant neoplasm of prostate
CPT/HCPCS: 36415; 80061; 84153; 82565; 84132

== ENCOUNTER 2023-04-21 07:46 | Inpatient (IN) | payer OTHER, SELFPAY ==
[2023-04-21] VITALS (23 sets, daily range): BP systolic 130–192; BP diastolic 83–102; PULSE 92–110; RESP 18–22; TEMP 36.7–37.3; O2SAT 94–99
--- NOTE | 2023-04-21 08:00 | DI.US_ITS ---
Exam(s) US LOWER EXTREMITY VENOUS LT EXAM: US LOWER EXTREMITY VENOUS LT CLINICAL HISTORY: Left leg swelling TECHNIQUE: Grayscale, color, and doppler imaging of the deep venous system of the lower extremity w as performed. COMPARISON: None. FINDINGS: This is an abnormal-positive study. There is long length DVT extending continuously from the common femoral vein down to below the level of the knee into the posterior tibial vein in the calf. Is also intraluminal thrombus evident in the profound the femora femoris vein. There is no clot seen within the lumen of the greater saphenous vein. IMPRESSION: 1. Positive study for long length DVT extending from the left common femoral vein down into the calf . Cannot exclude possibility of intraluminal thrombus in the iliac veins above the level of the ingu inal ligament. DATA REPOSITORY:
--- NOTE | 2023-04-21 08:11 | W.ED.GENAD ---
Discharge Plan Disposition Patient Disposition: Admit to [facility] Condition: Stable Discharge Details Clinical Impression: Deep vein thrombosis (DVT) of left lower extremity, Bilateral pulmonary embolism Primary Care Provider: Cruz Das ED Provider: Sravanthi De Paz Home Meds and New Rx's Prescriptions: No Action aspirin 325 mg tablet 325 mg PO DAILY Qty: 90 3RF polyethylene glycol 3350 17 gram powder in packet 17 g PO DAILY PRN PRN (Reason: constipation) Qty: 1 11RF metformin 500 mg tablet extended release 24 hr 500 mg PO BID Qty: 180 3RF tamsulosin [Flomax] 0.4 mg capsule 0.8 mg PO DAILY Qty: 180 3RF lisinopril 40 mg tablet 40 mg PO DAILY Qty: 90 3RF glipizide 10 mg tablet extended release 24hr 10 mg PO DAILY Qty: 90 2RF sertraline 100 mg tablet 200 mg PO DAILY Qty: 180 3RF atorvastatin 80 mg tablet 80 mg PO QPM Qty: 90 3RF naproxen 250 mg tablet 250 - 500 mg PO BID PRN (Reason: Moderate pain or swelling) Qty: 60 6RF finasteride 5 mg tablet 5 mg PO DAILY Qty: 90 3RF (DME) FreeStyle Josafat 2 [place] Misc See Rx Instructions .ROUTE .MEDSUPPLY Qty: 1 0RF Rx Instructions: As directed (DME) FreeStyle Josafat 2 Sensor Kit See Rx Instructions .Route Qty: 6 3RF Rx Instructions: As directed (DME) Blood Glucose Test strip 1 ea Miscellaneous QID Qty: 400 12RF Rx Instructions: FOR ONE TOUCH ULTRA BLUE METER. PT USES INSULIN. TESTS QID AND PRN. DIAGNOSIS CODE E11.65 (DME) lancets 28 gauge misc 1 ea Miscellaneous QID Qty: 400 12RF Rx Instructions: 4X/day.SOFT ULTRA MINI. DIAGNOSIS CODE E11.65 Medical Decision Making 57-year-old male presents to the ER with a chief complaint of left leg swelling since . He reports that he just flew back from [place] on Friday. He does have a history of stroke with left-sided residual deficits. He is supposed to be taking. 24 mg of aspirin atorvastatin glipizide metformin naproxen which he has not been taking. He does have a history of diabetes., Depression anxiety. He denies any fever chills however he did wake up with the sweats on . His left leg does appear swollen mild amount of erythema in the popliteal fossa. Work-up ordered including CBC CMP PT PTT, magnesium ultrasound of left lower extremity. Informed by [employer] that patient has an extensive DVT from CFV to Distal Popliteal vein. Will order CT chest to rule out PE. Will consider Heparin and admission. 1000: Hospitalist paged. 1007: Spoke with Dr. Bernal hospitalist he agrees to accept patient for admission. Spoke with radiologist positive CT chest for bilateral PEs. Awaiting bed placement upstairs. Heparin is infusing without difficulty. This text was generated using Clutchation system, please disregard any oddities of phrase or misspellings. Medical Records Medical records reviewed: Yes I reviewed the patient's medical records. Medical records narrative: Hx CVA, Diabetes, HTN, Hyperlipidemia. Imaging Data Radiologic Study: Imaging: Ultrasound Radiologist's impression: US LOWER EXTREMITY VENOUS LT EXAM: US LOWER EXTREMITY VENOUS LT CLINICAL HISTORY: Left leg swelling TECHNIQUE: Grayscale, color, and doppler imaging of the deep venous system of the lower extremity was performed. COMPARISON: None. FINDINGS: This is an abnormal-positive study. There is long length DVT extending continuously from the common femoral vein down to below the level of the knee into the posterior tibial vein in the calf. Is also intraluminal thrombus evident in the profound the femora femoris vein. There is no clot seen within the lumen of the greater saphenous vein. IMPRESSION: 1. Positive study for long length DVT extending from the left common femoral vein down into the calf. Cannot exclude possibility of intraluminal thrombus in the iliac veins above the level of the inguinal ligament. Lab Data Lab results reviewed: Yes I reviewed the patient's lab results. Labs: Laboratory Tests Range/Units 04/21/23 08:10 WBC (4.4-10.8) 10^3/uL 13.85 H RBC (4.36-5.78) 10^6/uL 6.09 H Hgb (13.5-17.5) g/dL 15.8 Hct (40.0-50.0) % 47.9 MCV (80-95) fL 79 L MCH (27.0-33.0) pg 25.9 L MCHC (32.0-36.0) % 33.0 RDW (11.8-14.1) % 12.8 Plt Count (130-400) 10^3/uL 194 MPV (8.0-11.0) fL 10.3 Immature Gran % 0.4 Neutrophils % 82.0 Lymphocytes % 8.0 Monocytes % 8.0 Eosinophils % 1.2 Basophils % 0.4 Nucleated RBC % (0.0-0.3) % 0.0 Absolute Neutrophils (1.2-6.7) 10^3/uL 11.36 H Absolute Lymphocytes (1.2-3.4) 10^3/uL 1.11 L Absolute Monocytes (0.1-0.8) 10^3/uL 1.11 H Absolute Eosinophils (0.0-0.7) 10^3/uL 0.17 Absolute Basophils (0.0-0.2) 10^3/uL 0.06 RBC Morphology See Below Polychromasia Present PT (9.1-11.1) sec 10.4 INR (0.9-1.1) 1.0 APTT (23.6-32.8) sec 25.3 Sodium (136-145) mmol/L 132 L Potassium (3.5-5.1) mmol/L 3.9 Chloride (98-107) mmol/L 95 L Carbon Dioxide (21.0-32.0) mmol/L 18.8 L Anion Gap (3-11) mmol/L 18.2 H BUN (7-18) mg/dL 19 H Creatinine (0.70-1.30) mg/dL 1.3 Est GFR (CKD-EPI 2020) (mL/min/1.73m2) 63.28 Glucose (74-106) mg/dL 366 H Calcium (8.5-10.1) mg/dL 9.6 Magnesium (1.8-2.4) mg/dL 2.0 Total Bilirubin (0.2-1.0) mg/dL 1.3 H AST (15-37) U/L 13 L ALT (16-63) U/L 21 Alkaline Phosphatase (46-116) U/L 87 Total Protein (6.4-8.2) g/dL 8.1 Albumin (3.4-5.0) g/dL 3.7 HPI General Mode of arrival: ambulatory. Date/Time Provider Initiated Documentation: 04/21/23 07:51. Limitations to Documentation: no limitations. Information obtained by: patient, RN notes reviewed and old records reviewed. HPI Narrative: 57-year-old male presents to the ER with a chief complaint of left leg swelling since . He reports that he just flew back from [place] on Friday. He does have a history of stroke with left-sided residual deficits. He is supposed to be taking. 24 mg of aspirin atorvastatin glipizide metformin naproxen which he has not been taking. He does have a history of diabetes., Depression anxiety. He denies any fever chills however he did wake up with the sweats on . His left leg does appear swollen mild amount of erythema in the popliteal fossa. Related Data Home Medications Medication Instructions Recorded Confirmed blood sugar diagnostic (Blood #400 strips 03/20/18 11/29/22 Glucose Test strips) lancets 28 gauge #400 ea 08/24/19 11/29/22 naproxen 250 mg tablet 250 - 500 mg (1 - 2 x 250 mg) PO 07/07/20 04/21/23 BID PRN Moderate pain or swelling #60 tabs finasteride 5 mg tablet 5 mg PO DAILY #90 tabs 07/03/21 04/21/23 aspirin 325 mg tablet 325 mg PO DAILY #90 tabs 07/17/21 04/21/23 polyethylene glycol 3350 17 gram 17 g PO DAILY PRN PRN constipation 07/17/21 04/21/23 oral powder packet #1 ea flash glucose scanning reader #1 ea 07/25/22 11/29/22 (FreeStyle Josafat 2 [place]) flash glucose sensor (FreeStyle #6 ea 07/25/22 11/29/22 Josafat 2 Sensor kit) atorvastatin 80 mg tablet 80 mg PO QPM #90 tabs 08/26/22 04/21/23 glipizide 10 mg tablet, extended 10 mg PO DAILY #90 tabs 08/26/22 04/21/23 release 24 hr lisinopril 40 mg tablet 40 mg PO DAILY #90 tab-caps 08/26/22 04/21/23 metformin 500 mg tablet,extended 500 mg PO BID #180 tabs 08/26/22 04/21/23 release 24 hr sertraline 100 mg tablet 200 mg (2 x 100 mg) PO DAILY #180 08/26/22 04/21/23 tab-caps tamsulosin 0.4 mg capsule (Flomax) 0.8 mg (2 x 0.4 mg) PO DAILY #180 08/26/22 04/21/23 joby Previous Rx's Medication Instructions Recorded blood sugar diagnostic (Blood #400 strips 03/20/18 Glucose Test strips) lancets 28 gauge #400 ea 08/24/19 naproxen 250 mg tablet 250 - 500 mg (1 - 2 x 250 mg) PO 07/07/20 BID PRN Moderate pain or swelling #60 tabs finasteride 5 mg tablet 5 mg PO DAILY #90 tabs 07/03/21 aspirin 325 mg tablet 325 mg PO DAILY #90 tabs 07/17/21 polyethylene glycol 3350 17 gram 17 g PO DAILY PRN PRN constipation 07/17/21 oral powder packet #1 ea flash glucose scanning reader #1 ea 07/25/22 (FreeStyle [place]at 2 [place]) flash glucose sensor (FreeStyle #6 ea 07/25/22 Josafat 2 Sensor kit) atorvastatin 80 mg tablet 80 mg PO QPM #90 tabs 08/26/22 glipizide 10 mg tablet, extended 10 mg PO DAILY #90 tabs 08/26/22 release 24 hr lisinopril 40 mg tablet 40 mg PO DAILY #90 tab-caps 08/26/22 metformin 500 mg tablet,extended 500 mg PO BID #180 tabs 08/26/22 release 24 hr sertraline 100 mg tablet 200 mg (2 x 100 mg) PO DAILY #180 08/26/22 tab-caps tamsulosin 0.4 mg capsule (Flomax) 0.8 mg (2 x 0.4 mg) PO DAILY #180 08/26/22 caps Allergies Allergy/AdvReac Type Severity Reaction Status Date / Time No Known Allergies Allergy Verified 04/21/23 07:58 General Stated Complaint: Vascular DOE: 3 Review of Systems All systems reviewed & are unremarkable except as noted in HPI and below Cardiovascular Cardiovascular: Reports leg edema and Reports dyspnea Respiratory Respiratory: Reports dyspnea Musculoskeletal Musculoskeletal: Reports as per HPI Neurologic Neurologic: Reports system reviewed and no additional complaints, except as documented PFSH All Active Problems (Updated 04/21/23 @ 11:08 by Sravanthi De Paz NP) Bilateral pulmonary embolism (Acute) Deep vein thrombosis (DVT) of left lower extremity (Acute) Impingement syndrome of right shoulder (Acute) NPDR with macular edema (Acute) 05/26/19 [facility] (L) EYE-kb 11/29/19 [facility] B/L MEIL-kb BPH loc w urin obs/LUTS (Acute) History of alcoholism (Acute) and drug abuse; at age [age] Cerebrovascular accident (CVA) (Chronic 03/19/17) Left hemiparesis 01/23, ischemic medullary CVA, evaluated by neurology at [facility] Essential hypertension (Acute) Hyperlipidemia (Acute) Type 2 diabetes mellitus (Chronic) Medical History Depression Anxiety Surgical History Right carpal tunnel syndrome (03/23/19) S/P ECTR History of shoulder surgery One right shoulder Two left shoulder History of spinal surgery Family History Mother No problems noted. Father No problems noted. Sister No problems noted. Sister No problems noted. Sister No problems noted. Sister No problems noted. Grandfather Diabetes Heart disease Grandfather Personal history of malignant neoplasm Grandmother Personal history of malignant neoplasm BREAST Grandmother Personal history of malignant neoplasm Social History Smoking/Tobacco Use Status: Former Tobacco Use tobacco type: cigarettes Quit Date: 06/09/79 Tobacco: How many years used: 40 Quit status: has quit before Second Hand Exposure: Yes Smoking risk assessment performed?: Yes Alcohol Intake: current Alcohol Intake frequency: a few times a month Alcohol type: beer Drug use: Occasionally Substance use type: other Details: Occasionally uses CBD in coffee. 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 Pets and animals: No Sexually active: No Do you think of yourself as: straight/heterosexual Current gender identity: male What is your relationship status?: How often do you talk on the phone with friends or family?: twice per week How often do you get together with friends or relatives?: once per week How often do you attend zoroastrian or cheondoism services?: 1-3 times per year Do you belong to any clubs or organized social groups?: no Panel score (0-1 are the most socially isolated patients): 1 What type of physical activity do you participate in: walking Duration: 30-45 minutes/day Frequency: 1-2 times per week Deena/Anabaptist: Congregational Special deena needs: No Seatbelt use: sometimes Helmet use: No Drive intox or ride w/intox [employer] 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 Appears stated age. Normal body habitus. Head: Normocephalic, no trauma. Eyes: Pupils PERRL, Red reflex noted, EOM's intact. Eyelids symmetrical without lesions, discharge, or swelling. ENT: Bilateral TM's WNL, External ear normal to inspection, no mastoid TTP, swelling, or erythema, Nasal turbinates WNL, no nasal discharge. Normal dentition, Posterior pharynx WNL, no exudate. Chest: RRR, Normal S1, S2, distal pulses intact. Resp: Lungs clear to auscultation bilaterally, no wheezes, rales, or rhonchi. Abdomen: Soft, non-distended, Normoactive bowel sounds all 4 quads. Musculoskeletal: Limping gait, 5/5 strength to all four extremities. Left lower extremity swollen slight erythema. Skin: No suspicious rashes or lesions. Capillary refill less than 2 sec. Neurologic: Cranial nerves II-XII intact. Alert and oriented x 3. Motor: No deficits noted. Sensory: Intact bilaterally all 4 extremities. Hematologic/Lymphatic: No ecchymosis, no lymphadenopathy. Course Vital Signs Vital signs: Vital Signs Temperature 36.9 C 04/21/23 07:53 Pulse 110 H 04/21/23 07:53 Respiratory Rate 20 04/21/23 07:53 Blood Pressure 183/102 H 04/21/23 07:53 Pulse Oximetry 99 04/21/23 07:53 Temperature 36.9 C 04/21/23 07:53 Temperature Source Skin 04/21/23 07:53 Pulse 110 H 04/21/23 07:53 Respiratory Rate 20 04/21/23 07:53 Blood Pressure 183/102 H 04/21/23 07:53 Blood Pressure Position Sitting 04/21/23 07:53 Pulse Oximetry 99 04/21/23 07:53 Oxygen Delivery Method Room Air 04/21/23 07:53 Oxygen Flow Rate 0 04/21/23 07:53 Pain Level 9 04/21/23 07:53
[2023-04-21 08:22] LABS: Abs Immature Grans 0.06 10^3/uL (0.0-0.06); Absolute Basophil Count 0.06 10^3/uL (0.0-0.2); Absolute Lymphocyte Count 1.11 10^3/uL (1.2-3.4); Absolute Monocyte Count 1.11 10^3/uL (0.1-0.8); Basophils % 0.4; Eosinophils % 1.2; HCT 47.9 % (40.0-50.0); HGB 15.8 g/dL (13.5-17.5); Immature Grans % 0.4; MCH 25.9 pg (27.0-33.0); MCV 79 fL (80-95); MPV 10.3 fL (8.0-11.0); Platelet Count 194 10^3/uL (130-400); RBC 6.09 10^6/uL (4.36-5.78); RDW 12.8 % (11.8-14.1); RDW-SD 36.1 fL; WBC 13.85 10^3/uL (4.4-10.8)
[2023-04-21 08:36] LABS: PTT Activated 25.3 sec (23.6-32.8); Prothrombin Time 10.4 sec (9.1-11.1)
[2023-04-21 08:40] LABS: ALT 21 U/L (16-63); AST 13 U/L (15-37); Albumin 3.7 g/dL (3.4-5.0); Alkaline Phosphatase 87 U/L (46-116); Anion Gap 18.2 mmol/L (3-11); BUN 19 mg/dL (7-18); Bilirubin, Total 1.3 mg/dL (0.2-1.0); CO2 18.8 mmol/L (21.0-32.0); CREATININE 1.3 mg/dL (0.70-1.30); Calcium 9.6 mg/dL (8.5-10.1); Chloride 95 mmol/L (98-107); Estimated GFR 63.28 (mL/min/1.73m2); Glucose 366 mg/dL (74-106); Potassium 3.9 mmol/L (3.5-5.1); Sodium 132 mmol/L (136-145); Total Protein 8.1 g/dL (6.4-8.2)
[2023-04-21 08:53] LABS: Absolute Eosinophil Count 0.17 10^3/uL (0.0-0.7); Absolute Neutrophil Count 11.36 10^3/uL (1.2-6.7)
[2023-04-21 08:56] LABS: Polychromasia Present
--- NOTE | 2023-04-21 09:00 | DI.CT_ITS ---
Exam(s) CT CHEST PE CTA EXAM: CT CHEST PE CTA CLINICAL HISTORY: SOB. TECHNIQUE: Imaging Protocol: CT angiography of the chest was performed using pulmonary embolus bowen col. Multi planar reconstructions were performed. CONTRAST MATERIAL: Intravenous: Omnipaque 350 Contrast volume: 100 cc COMPARISON: CR,XR XR CHEST 2V PA LATERAL from 02/23/[address] BRAIN NECK CTA from 02/23/2020 FINDINGS: CHEST: PULMONARY ARTERIES: This study is positive for the presence of bilateral pulmonary emboli. There are intraluminal filling defects within bilateral segmental pulmonary arteries starting distal to the bi lateral main pulmonary arteries, involving both lower lobes in both upper lobes. LUNGS: There is mild subpleural infiltrate in the posterior basal segment of the right lower lobe, no t associated with pleural effusion.. No other right lung findings and no focal left lung findings no r pleural fluid. Incidentally noted is a subcarinal lucency consistent with a tracheal-right main br onchial diverticulum. This measures approximately 2 cm wide by 1.2 cm AP by 2 cm cephalocaudal. Thi s appears to communicate with the inferior wall of the right mainstem bronchus beyond its origin from the jeyson. MEDIASTINUM: There is no hilar nor mediastinal adenopathy. Visualized thyroid unremarkable. CARDIAC: Heart size is upper normal. There is no pericardial effusion.Caliber of the thoracic aorta is within normal limits. No evidence of aortic dissection. There is no significant shift of the inte rventricular septum. PARTIALLY VISUALIZED UPPERMOST ABDOMEN: No adrenal masses. Fatty liver. Visualized pancreas appears unremarkable. OSSEOUS: No significant osseous lesions.No fractures.. IMPRESSION: 1. Positive study. There intraluminal filling defects consistent with acute pulmonary emboli in both lungs involving all lobes..Mild subpleural infiltrate is noted in the posterior basal segment of the right lower lobe. Cannot exclude developing pulmonary infarct at this level. There are no pleural effusions. No ominous pulmonary nodules. 2. Incidentally noted is a subcarinal tracheal diverticulum as described above. This is not a new fi nding. It does not contain fluid. 3. Lowermost images reveal hepatic steatosis. No obvious mass evident in the partially visualized pa ncreas. Called by myself to ER provider. RADIATION DOSE DELIVERED: Total DLP DATA REPOSITORY: All CT scans at this facility are submitted to the National Radiology Data Registry (NRDR) Dose Index Registry (DIR) with the [employer] (ACR). RADIATION OPTIMIZATION: All CT scans at this facility use at least one of these dose optimization te chniques: automated exposure control; mA and/or kV adjustment per patient size (includes targeted exa ms where dose is matched to clinical indication); or iterative reconstruction.
[2023-04-21] MEDS: Normal Saline 1,000 ML 1000 ML IV (09:39)
[2023-04-21] MEDS: Heparin in 0.45% NaCl 25,000 UNIT/250 ML BAG 17.5 UNIT IV ×2 (09:39→19:52)
[2023-04-21 10:10] LABS: Source Nasal/Nares
--- NOTE | 2023-04-21 10:13 | W.PM.HP.N ---
Date of service: 04/21/23 Time of Service: 14:27 Assessment and Plan Assessment and plan (1) Bilateral pulmonary embolism: Status: Acute Assessment and plan: - Patient initially presented with left lower extremity pain which was subsequently found to be due to an extensive DVT -CTA also showed diffuse pulmonary emboli -However, patient is on room air and does not complain of any shortness of breath -proBNP pending, troponin negative -Follow-up echocardiogram -Started on heparin drip in the emergency department, will continue to 48 hours before transitioning to Eliquis (2) Deep vein thrombosis (DVT) of left lower extremity: Status: Acute Assessment and plan: - As noted above Qualifiers: Affected thrombotic vein of extremity: femoral Chronicity: acute Qualified Code(s): I82.412 - Acute embolism and thrombosis of left femoral vein (3) Cerebrovascular accident (CVA): Status: Chronic Assessment and plan: - History of CVA with left-sided deficit -Patient had been noncompliant with his medications -Will restart aspirin and statin Qualifiers: CVA mechanism: unspecified Qualified Code(s): I63.9 - Cerebral infarction, unspecified (4) Essential hypertension: Status: Acute Assessment and plan: - Has been noncompliant with medication regimen -Will restart lisinopril at 20 mg daily and uptitrate as needed (5) Hyperlipidemia: Status: Acute Assessment and plan: - As noted above Qualifiers: Hyperlipidemia type: unspecified Qualified Code(s): E78.5 - Hyperlipidemia, unspecified (6) Type 2 diabetes mellitus: Status: Chronic Assessment and plan: - Last hemoglobin A1c on November 29, 2022 was 6.2 -Patient has been noncompliant with his diabetic medications while in [place] for the last 7 weeks -Glucose 366 in the emergency department -We will start patient on sliding scale insulin and restart oral glucose regimen closer to discharge -Follow-up a.m. 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 Patient states that since his CVA he has had difficulty moving his left leg, but that he has been in [place] over the last 7 weeks visiting family. He states that he has been less mobile while out in [place] and has been laying around immobile for most of the day. Patient also states that he has been noncompliant with his antihypertensives, hyperlipidemia medication aspirin, and diabetes medications. Currently, the patient was on a long flight home from [place] shortly after returning home began to have roughly 3 days of left leg pain and swelling which prompted him to present to the emergency department. He denies any headache, lightheadedness, dizziness, chest pain or shortness of breath. In the emergency department the patient was noted to be tachycardic with heart rate of 110, blood pressure 183/102, respiratory rate of 20 with an O2 saturation of 99% on room air. CBC showed a mild leukocytosis with a white blood cell count of 13.8, CMP showed pseudohyponatremia with a sodium of 132 likely secondary to glucose of 366. Left lower extremity venous ultrasound showed long length DVT extending from left common vein down to the calf, and chest CTA showed intraluminal filling defects consistent with acute pulmonary emboli in both lungs involving all lobes with mild subpleural infiltrate in the posterior basal segment of the right lower lobe cannot exclude pulmonary infarct. Patient was started on heparin drip at which time emergency room physician paged hospitalist for admission for patient with extensive DVT and acute pulmonary emboli. 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 Father No problems noted. Sister No problems noted. Sister No problems noted. Sister No problems noted. Sister No problems noted. Grandfather Diabetes Heart disease Grandfather Personal history of malignant neoplasm Grandmother Personal history of malignant neoplasm BREAST Grandmother Personal history of malignant neoplasm Social History Smoking/Tobacco Use Status: Former Tobacco Use tobacco type: cigarettes Quit Date: 06/09/79 Tobacco: How many years used: 40 Quit status: has quit before Second Hand Exposure: Yes Smoking risk assessment performed?: Yes Alcohol Intake: current Alcohol Intake frequency: a few times a month Alcohol type: beer Drug use: Occasionally Substance use type: other Details: Occasionally uses CBD in coffee. 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 Pets and animals: No Sexually active: No Do you think of yourself as: straight/heterosexual Current gender identity: male What is your relationship status?: How often do you talk on the phone with friends or family?: twice per week How often do you get together with friends or relatives?: once per week How often do you attend gnosticism or church services?: 1-3 times per year Do you belong to any clubs or organized social groups?: no Panel score (0-1 are the most socially isolated patients): 1 What type of physical activity do you participate in: walking Duration: 30-45 minutes/day Frequency: 1-2 times per week Deena/Cheondoism: Taoism Special deena needs: No Seatbelt use: sometimes Helmet use: No Drive intox or ride w/intox test car driver: No Do you feel safe at home: Yes Do you feel safe in your relationship?: Yes Meds Allergies and Home Medications Allergies Allergy/AdvReac Type Severity Reaction Status Date / Time No Known Allergies Allergy Verified 04/21/23 07:58 Home Medications Medication Instructions Recorded Confirmed Type blood sugar diagnostic (Blood #400 strips 03/20/18 11/29/22 Rx Glucose Test strips) lancets 28 gauge #400 ea 08/24/19 11/29/22 Rx naproxen 250 mg tablet 250 - 500 mg (1 - 2 x 250 mg) PO 07/07/20 04/21/23 Rx BID PRN Moderate pain or swelling #60 tabs finasteride 5 mg tablet 5 mg PO DAILY #90 tabs 07/03/21 04/21/23 Rx aspirin 325 mg tablet 325 mg PO DAILY #90 tabs 07/17/21 04/21/23 Rx polyethylene glycol 3350 17 gram 17 g PO DAILY PRN PRN constipation 07/17/21 04/21/23 Rx oral powder packet #1 ea flash glucose scanning reader #1 ea 07/25/22 11/29/22 Rx (FreeStyle Josafat 2 Campbell) flash glucose sensor (FreeStyle #6 ea 07/25/22 11/29/22 Rx Josafat 2 Sensor kit) atorvastatin 80 mg tablet 80 mg PO QPM #90 tabs 08/26/22 04/21/23 Rx glipizide 10 mg tablet, extended 10 mg PO DAILY #90 tabs 08/26/22 04/21/23 Rx release 24 hr lisinopril 40 mg tablet 40 mg PO DAILY #90 tab-caps 08/26/22 04/21/23 Rx metformin 500 mg tablet,extended 500 mg PO BID #180 tabs 08/26/22 04/21/23 Rx release 24 hr sertraline 100 mg tablet 200 mg (2 x 100 mg) PO DAILY #180 08/26/22 04/21/23 Rx tab-caps tamsulosin 0.4 mg capsule (Flomax) 0.8 mg (2 x 0.4 mg) PO DAILY #180 08/26/22 04/21/23 Rx caps Exam Narrative Exam Narrative: Well-appearing older gentleman laying in bed in no acute distress, AOx4, heart RRR, lungs CTAB, decreased strength in LLE as compared to right which is patients baseline, swelling and tenderness to palpation of LLEfrom the upper calf to the thigh Results Labs 04/21/23 08:10 04/21/23 08:10 Labs: Laboratory Results - last 24 hr 04/21/23 04/21/23 08:10 10:05 WBC 13.85 H RBC 6.09 H Hgb 15.8 Hct 47.9 MCV 79 L MCH 25.9 L MCHC 33.0 RDW 12.8 Plt Count 194 MPV 10.3 Immature Gran % 0.4 Neutrophils % 82.0 Lymphocytes % 8.0 Monocytes % 8.0 Eosinophils % 1.2 Basophils % 0.4 Nucleated RBC % 0.0 Absolute Neutrophils 11.36 H Absolute Lymphocytes 1.11 L Absolute Monocytes 1.11 H Absolute Eosinophils 0.17 Absolute Basophils 0.06 RBC Morphology See Below Polychromasia Present PT 10.4 INR 1.0 APTT 25.3 Sodium 132 L Potassium 3.9 Chloride 95 L Carbon Dioxide 18.8 L Anion Gap 18.2 H BUN 19 H Creatinine 1.3 Est GFR (CKD-EPI 2020) 63.28 Glucose 366 H Calcium 9.6 Magnesium 2.0 Total Bilirubin 1.3 H AST 13 L ALT 21 Alkaline Phosphatase 87 Total Protein 8.1 Albumin 3.7 COVID-19 Source Nasal/Nares Last Vital Signs Temp 98.5 F 04/21/23 07:53 Pulse 110 H 04/21/23 07:53 Resp 22 04/21/23 09:46 BP 183/102 H 04/21/23 07:53 Pulse Ox 96 04/21/23 08:40 Time Spent Time spent with Patient: >75 minutes (80min) Time was spent: preparing to see the patient(eg.review tests), obtaining and/or reviewing separately otained hiistory, ordering medications,tests, procedures, referring, communicating with other health patient care nursing assistant, indepentently interpreting results, counseling the patient and care coordination
[2023-04-21] MEDS: Normal Saline - Diluent 50 ML VIAL IJ (10:29)
[2023-04-21] MEDS: Normal Saline Flush 10 ML SYR IVP (10:29)
[2023-04-21] MEDS: Omnipaque 350 MG/ML 500 ML BTL-Imaging package IJ (10:30)
[2023-04-21 10:42] LABS: COVID-19 PCR Negative (Negative)
[2023-04-21] MEDS: Lisinopril 20 MG TAB PO (13:19)
[2023-04-21] MEDS: Acetaminophen 325 MG TAB PO ×2 (13:36→21:41)
[2023-04-21 13:53] LABS: Troponin I < 50 ng/L (<or=60)
[2023-04-21 16:24] LABS: PTT Activated 58.6 sec (23.6-32.8)
--- NOTE | 2023-04-21 16:30 | TELEP.MEDR_ITS ---
Date of service: 04/21/23 Time of Service: 16:35 Telepharmacy Home Med Rec Allergies Allergies: No Known Allergies Allergy (Verified 04/21/23 07:58) Interview Person Interviewed: Patient Quality Quality of Interview/Accuracy of Medication List: Good Sources Sources used to compile medication list: [facility] Medication List and Retail Pharmacy Changes made to Home Medication List: ADDITIONS: None DELETIONS: None CHANGES: None Additional Notes Additional Notes: Patient verified that all of the medications on his home list are active meds that he should be taking. However, he reports he has not taken any of the medications in a long time and believes that is why he is at the hospital today. He plans to re-start his medications upon discharge. Although he has not been taking his medications, I left them on his home list and marked as not taking. Recommended Changes Attestation: The home medication list is now updated to the best of my knowledge and is ready to be reconciled by the provider. Please contact the [facility] Medication Reconciliation Pharmacist at for any questions.
[2023-04-21 16:39] LABS: NT-proBNP 146 pg/mL (<300); TSH (W/Ref FT4) 1.87 uIU/mL (0.36-3.74); Troponin I < 50 ng/L (<or=60)
[2023-04-21] MEDS: Insulin Aspart 300 UNITS/3 ML PEN SC (16:42)
--- NOTE | 2023-04-21 17:22 | PHA.REVIEW2 ---
Pharmacy Admission Review Admission Clinical Review Admission Pharmacy Review: (Updated 04/21/23 @ 15:00 by Estevan Bernal MD) Bilateral pulmonary embolism (Acute) Deep vein thrombosis (DVT) of left lower extremity (Acute) Essential hypertension (Acute) Hyperlipidemia (Acute) No Known Allergies Allergy (Verified 04/21/23 07:58) Resuscitation Status Full Code Height 6 ft 1 in Weight 95.254 kg Pharmacy Admission Review Renal Dosing Renal Dosing: BUN 19 mg/dL (7-18) H 04/21/23 08:10 Creatinine 1.3 mg/dL (0.70-1.30) 04/21/23 08:10 Medications needing adjustments: Reviewed (crcl = 82, adjustments not needed) Anticoagulation Anticoagulation: Hgb 15.8 g/dL (13.5-17.5) 04/21/23 08:10 Hct 47.9 % (40.0-50.0) 04/21/23 08:10 Plt Count 194 10^3/uL (130-400) 04/21/23 08:10 INR 1.0 (0.9-1.1) 04/21/23 08:10 Creatinine 1.3 mg/dL (0.70-1.30) 04/21/23 08:10 DVT Prophylaxis: Reviewed Medications: Heparin (heparin drip) Therapeutic Anticoagulation: Reviewed Medications: Heparin (heparin drip for PE/DVT tx) Opiate Usage Evaluate Pain Scale/Pains Meds: N/A Relevant Labs Relevant Labs: Sodium 132 mmol/L (136-145) L 04/21/23 08:10 Potassium 3.9 mmol/L (3.5-5.1) 04/21/23 08:10 Chloride 95 mmol/L (98-107) L 04/21/23 08:10 Magnesium 2.0 mg/dL (1.8-2.4) 04/21/23 08:10 Electrolytes, C-Reactive P, ESR: Reviewed DM Control DM Control: Reviewed Insulin Dosing, Diabetic Medication: insulin aspart sliding scale with meals ordered home regimen: glipizide XL 10 mg daily, metformin ER 500 mg BID -- has not been taking for a number of months, held for now. Cardiac Review Cardiac Review: Troponin I < 50 ng/L (<or=60) 04/21/23 16:00 NT-Pro-B Natriuret Pep 146 pg/mL (<300) 04/21/23 16:00 BP, HR, EF%: Reviewed List meds needing interventions: lisinopril home dose = 40 mg daily (has not been taking), restarted at 20 mg daily to titrate up as needed QTc Review QTc: Not Reviewed (no EKG to review) IV to PO Switch IV Medications: N/A Home Meds Home Med List reviewed: Intervened (pt has been noncompliant with medications for a while (last fills 08/27/22 #90 days) - suggested restarting some meds at a lower dose: sertraline 200 mg/day restarted 100 mg daily, flomax 0.8 mg/day restarted 0.4 mg daily) Relevent Home Meds Not ordered & why?: oral anti-diabetics held for now (covered with sliding scale insulin) Medication adherence barriers identified?: will need to find out reason pt stopped taking medications, he did report to [facility] telepharmacy that he plans to restart them and understands the importance Current Meds Current Medication Order Review: Reviewed Comments: PE/DVT: heparin drip x 48 hours then switch to DOAC
[2023-04-21] MEDS: Atorvastatin 40 MG TAB 80 MG PO (21:40)
[2023-04-21 23:40] LABS: PTT Activated 31.9 sec (23.6-32.8)
--- NOTE | 2023-04-22 | DI.US_ITS ---
APPROVED REPORT EXAM: Comprehensive 2D, Doppler, and color-flow Echocardiogram Patient Location: In-Patient Room/Bed: 218 Trailer Mechanic: Kirsten Bansal RDCS (AE) Indications: DVT, Pulmonary Embolism, HTN Other Information Study Quality: Adequate Conclusion Normal left ventricular wall thickness and chamber size. Ejection fraction is 55%. Wall motion is n ormal Normal right ventricular size and systolic function Both atria are normal in size There is no structural or hemodynamically significant valvular disease Right ventricular systolic pressure could not be estimated due to insufficient tricuspid regurgitatio n Mildly dilated ascending aorta measuring 3.6 cm Wall motion Left Ventricle The left ventricle is normal size. Left ventricular systolic function is normal There is normal left ventricular wall thickness. There is normal LV segmental wall motion. There is no ventricular septal defect visualized. LVEF is 55%. Right Ventricle The right ventricle is normal size. The right ventricular systolic function is normal. Atria The left atrium size is normal. The right atrium size is normal. The interatrial septum is intact wit h no evidence for an atrial septal defect. Aortic Valve The aortic valve is normal in structure. There is no aortic valvular stenosis. No aortic regurgitatio n is present. Mitral Valve The mitral valve is normal in structure. No evidence of mitral valve stenosis. Trace mitral regurgita tion. Tricuspid Valve The tricuspid valve is normal in structure. There is no tricuspid valve stenosis. Trace tricuspid reg urgitation. Unable to assess PA pressure. Pulmonic Valve The pulmonary valve is normal in structure. There is no pulmonic valvular stenosis. There is no pulmo alejandra valvular regurgitation. Great Vessels The aortic root is normal in size. The ascending aorta is mildly dilated. Aortic arch is normal in ca liber. IVC is normal in size and collapses >50% with inspiration. Pericardium There is no pericardial effusion. 2D Dimensions IVSD d PLAX 0.91 cm M: 0.6-1.2 Ao Root d 3.47 cm M: 3.1 - 3.7 LVPW d PLAX 0.88 cm M: 0.6 - 1.2 Ao Asc Diam d 3.64 cm M: 2.6 - 3.4 LVID d PLAX 4.37 cm M: 4.2 - 5.8 LVDs 3.22 cm M: 2.5 - 4.0 LV EF Teichholz 51.8 % FS 26.30 % LV EDV (Teich) 86.2 mL LV ESV (Teich) 41.6 mL M-Mode TAPSE 2.22 cm (M/F) >1.7 Auto EF LV EDV A4C 93.6 mL LV EDV A2C 116.8 mL LV EDV BP 103.2 mL LV ESV A4C 45.5 mL LV ESV A2C 58.7 mL LV ESV BP 51.8 mL LVEF(%) A4C 51.4 % LVEF(%) A2C 49.7 % LVEF(%) BP 49.8 % LV SV A4C 48.1 ml LV SV A2C 58.1 ml LV SV BP 51.4 ml LV CO A4C 3.8 L/min LV CO A2C 4.7 L/min LV CO BP 4.3 L/min HR A4C 78.43 BPM HR A2C 81.64 BPM LV EDV Index (BP) LV Strain Long Pk Overal Avg (s) 16.01 RV Strain Global Peak Long. Strain A4C 16.08 Global Peak Long. Strain A4C FW 19.27 LA Volume LA Length A4C 4.5 cm LA Length A2C 5.3 cm LA Area A4C s 15.74 cm2 LA Area A2C s 22.12 cm2 LA Vol A4C A-L 46.74 mL LA Vol A2C A-L 78.55 mL LA Vol Biplane A-L 65.7 mL LA Vol/BSA A4C A-L LA Vol/BSA A2C A-L LA Vol/BSA BP A-L 29.9 mL/m2 LA Vol A4C MOD 42.9 mL LA Vol A2C MOD 70.7 mL LA Vol BP MOD 59.7 mL RA Volume RA Area A4C 9.7 cm2 RA ESV A4C (A-L) 18.0mL RA Vol/BSA A4C A-L RA Length A4C 4.4 cm RA ESV A4C (MOD) 16.9mL LV Diastology MV E' medial 0.067 (>0.07 m/s) MV E Vmax 0.71 (0.4-1.3 m/s) MV E/E' MED 10.64 (<14) MV A Vmax 0.85 (0.4-1.3 m/s) MV E' lateral 0.100 (>0.1 m/s) E/A Ratio 0.8 MV E/E' LAT 7.12 (<14) MV E' Average 0.083 m/s MV E/E'(average) 8.54 Aortic Valve AoV Vmax 1.25 m/s LVOT Vmax 1.01 m/s AoV Peak Grad 6.2 mmHg LVOT Peak Grad 4.1 mmHg AoV Area (Vmax) 2.63 cm2 LVOT VTI 0.194 m AoV VTI 0.223 m LVOT Mean Grad 2.1 mmHg AoV Mean Zane. 0.89 m/s LVOT SV 62.96 mL AoV Mean Grad 3.6 mmHg LVOT Diam s 2.00 cm AoV Area (VTI) 2.82 cm2 Velocity Ratio 0.81 Mitral Valve MV DT 243 (160-240 msec) MV Vmax TIPS 0.85 m/s MV Mean Grad 1.2 (<2mmHg) MV VTI 0.229 m Tricuspid Valve RA Pressure 3.00 mmHg TV S' 0.16 m/s
[2023-04-22 03:14] VITALS: BP 118/87; PULSE 86; RESP 18; TEMP 37.6; O2SAT 96
[2023-04-22] MEDS: Acetaminophen 325 MG TAB PO ×3 (05:20→17:04)
[2023-04-22 06:48] LABS: HCT 40.1 % (40.0-50.0); HGB 13.4 g/dL (13.5-17.5); MCH 25.9 pg (27.0-33.0); MCHC 33.4 % (32.0-36.0); MCV 78 fL (80-95); MPV 10.6 fL (8.0-11.0); Platelet Count 167 10^3/uL (130-400); RBC 5.17 10^6/uL (4.36-5.78); RDW 12.9 % (11.8-14.1); RDW-SD 36.5 fL; WBC 10.27 10^3/uL (4.4-10.8)
[2023-04-22 07:01] LABS: PTT Activated 65.9 sec (23.6-32.8)
[2023-04-22 07:07] LABS: BUN 24 mg/dL (7-18); CREATININE 1.1 mg/dL (0.70-1.30); Calcium 9.3 mg/dL (8.5-10.1); Chloride 99 mmol/L (98-107); Estimated GFR 77.33 (mL/min/1.73m2); Glucose 326 mg/dL (74-106); Magnesium 2.2 mg/dL (1.8-2.4); Potassium 3.6 mmol/L (3.5-5.1); Sodium 133 mmol/L (136-145)
[2023-04-22] MEDS: Heparin in 0.45% NaCl 25,000 UNIT/250 ML BAG 21.5 UNIT IV ×2 (07:40→20:53)
[2023-04-22 07:53] VITALS: BP 135/77; PULSE 79; RESP 19; TEMP 36.8; O2SAT 96
[2023-04-22] MEDS: Tamsulosin 0.4 MG CAPCR PO (07:55)
[2023-04-22] MEDS: Lisinopril 20 MG TAB PO (07:55)
[2023-04-22] MEDS: Sertraline 100 MG TAB PO (07:55)
[2023-04-22] MEDS: Finasteride 5 MG TAB PO (07:55)
[2023-04-22] MEDS: Insulin Aspart 300 UNITS/3 ML PEN SC ×4 (08:02→21:38)
[2023-04-22 08:15] LABS: Hemoglobin A1C 10.9 % (<5.7)
[2023-04-22 11:35] VITALS: BP 151/72; PULSE 92; RESP 21; TEMP 36.7; O2SAT 97
[2023-04-22 15:21] VITALS: BP 119/71; PULSE 89; RESP 18; TEMP 36.8; O2SAT 96
--- NOTE | 2023-04-22 15:33 | PGE_ITS ---
Date of Service Date of service: 04/22/23 Time of Service: 15:34 Assessment and Plan Assessment and plan (1) Bilateral pulmonary embolism: Status: Acute Assessment and plan: - Patient initially presented with left lower extremity pain which was subsequently found to be due to an extensive DVT -CTA also showed diffuse pulmonary emboli -However, patient is on room air and does not complain of any shortness of breath -proBNP pending, troponin negative -Follow-up echocardiogram -Started on heparin drip in the emergency department, will continue to 6 AM on 06/23/2022 at which time patient will start treatment dose Eliquis (2) Deep vein thrombosis (DVT) of left lower extremity: Status: Acute Assessment and plan: - As noted above Qualifiers: Affected thrombotic vein of extremity: femoral Chronicity: acute Qualified Code(s): I82.412 - Acute embolism and thrombosis of left femoral vein (3) Cerebrovascular accident (CVA): Status: Chronic Assessment and plan: - History of CVA with left-sided deficit -Patient had been noncompliant with his medications -Will restart aspirin and statin Qualifiers: CVA mechanism: unspecified Qualified Code(s): I63.9 - Cerebral infarction, unspecified (4) Essential hypertension: Status: Acute Assessment and plan: - Has been noncompliant with medication regimen -Will restart lisinopril at 20 mg daily and uptitrate as needed (5) Hyperlipidemia: Status: Acute Assessment and plan: - As noted above Qualifiers: Hyperlipidemia type: unspecified Qualified Code(s): E78.5 - Hyperlipidemia, unspecified (6) Type 2 diabetes mellitus: Status: Chronic Assessment and plan: - Last hemoglobin A1c on November 29, 2022 was 6.2 -Patient has been noncompliant with his diabetic medications while in [place] for the last 7 weeks -Glucose 366 in the emergency department -We will start patient on sliding scale insulin and restart oral glucose regimen closer to discharge -HbA1c back up to 10.9 Qualifiers: Diabetes mellitus adjunct faculty for medical terminology insulin use: without adjunct faculty for medical terminology use Diabetes mellitus complication status: with hyperglycemia Qualified Code(s): E11.65 - Type 2 diabetes mellitus with hyperglycemia Subjective Subjective Patient reports: no new complaints Interval history since last seen: patient is sitting up in the chair and states that he feels well. He complains of some slight pain in his left lower extremity but that it is tolerable. He understands the plan to continue IV heparin until tomorrow morning where he can be transition to an oral anticoagulant prior to discharge. Exam Narrative Exam Narrative: Well-appearing older gentleman sitting up in the chair in no acute distress, AOx4, heart RRR, lungs CTAB, decreased strength in LLE as compared to right which is patients baseline, swelling and tenderness to palpation of LLE from the upper calf to the thigh Objective Last Vital Signs Temp 98.2 F 04/22/23 15:21 Pulse 89 04/22/23 15:21 Resp 18 04/22/23 15:21 BP 119/71 04/22/23 15:21 Pulse Ox 96 04/22/23 15:21 Laboratory Results - last 24 hr 04/21/23 04/21/23 04/22/23 16:00 22:10 05:35 WBC RBC Hgb Hct MCV MCH MCHC RDW Plt Count MPV APTT 58.6 H 31.9 Cancelled Sodium Potassium Chloride Carbon Dioxide Anion Gap BUN Creatinine Est GFR (CKD-EPI 2020) Glucose Hemoglobin A1c Calcium Magnesium Troponin I < 50 NT-Pro-B Natriuret Pep 146 TSH 1.87 04/22/23 04/22/23 04/22/23 06:05 06:20 06:25 WBC 10.27 RBC 5.17 Hgb 13.4 L D Hct 40.1 MCV 78 L MCH 25.9 L MCHC 33.4 RDW 12.9 Plt Count 167 MPV 10.6 APTT 65.9 H Sodium 133 L Potassium 3.6 Chloride 99 Carbon Dioxide 21.0 Anion Gap 13.0 H BUN 24 H Creatinine 1.1 Est GFR (CKD-EPI 2020) 77.33 Glucose 326 H Hemoglobin A1c 10.9 H Calcium 9.3 Magnesium 2.2 Troponin I NT-Pro-B Natriuret Pep TSH 04/22/23 11:53 WBC RBC Hgb Hct MCV MCH MCHC RDW Plt Count MPV APTT 54.0 H Sodium Potassium Chloride Carbon Dioxide Anion Gap BUN Creatinine Est GFR (CKD-EPI 2020) Glucose Hemoglobin A1c Calcium Magnesium Troponin I NT-Pro-B Natriuret Pep TSH Time Spent with Patient Time Spent with Patient: >50 minutes Time was spent: preparing to see the patient(eg.review tests), obtaining and/or reviewing separately otained hiistory, ordering medications,tests, procedures, referring, communicating with other health acute care physical therapist, indepentently interpreting results, counseling the patient and care coordination
--- NOTE | 2023-04-22 16:57 | INITIAL_ITS ---
Date of service: 04/22/23 Time of Service: 16:57 Care Management Initial Assmt Initial Assessment REASON FOR HOSPITALIZATION:: DVT PREVIOUS FUNCTIONAL STATUS/SOCIAL/FAMILY SUPPORTS:: Shadi lives in [place] alone. He has a thirteen year old son who primarily lives with his ex , in [place]. He has other family in [place], who are supportive, but are limited by their distance. He stated that he has support from [facility], and he has a community living coach, although he is unsure of their name. He reported that he has received a lot of support from [facility] in the past, and is very grateful for all of the help he has been given in the community. He is disabled due to a stroke in 2017, but is independent with ADLs. CURRENT FUNCTIONAL STATUS:: Shadi was lying in bed when CM met with him. He was pleasant and engaged in conversation. He stated that he had a lot of pain in his leg after traveling home from [place] recently, which is what brought him to the ED. He stated that he is doing well, and improving, and per MD, he may be discharged home tomorrow. He is agreeable with this plan. He stated that his apartment is on the second floor, and he plans to talk to [facility] about moving to a first floor apartment. He had questions about his insurance, as it is open enrollment. CM will send a referral to [employer] for insurance navigation support. CM will continue to follow. ADVANCE DIRECTIVES:: On file; ex , Jocelyne listed as [facility]CA. Shadi stated that he is interested in changing this; CM will offer forms and support. Has patient been provided with info about the portal/API?: Yes Did the patient sign up for the portal?: No CODE STATUS:: Full Code INSURANCE COVERAGE / FINANCIAL ISSUES:: [employer] MCR replacement CURRENT HOME/COMMUNITY SERVICES/EQUIPMENT:: [facility], [facility] PRIMARY CARE PHYSICIAN:: Cruz Das POTENTIAL DISCHARGE NEEDS:: Evaluations for further needs, follow up appointments. PATIENT/FAMILY EDUCATION NEEDS:: Review discharge instructions and limitations, discussion of self care needs including ask me three. ANTICIPATED BARRIERS TO DISCHARGE:: None identified. TRANSPORTATION:: Via private vehicle PLAN:: Anticipate Shadi will return home when medically cleared. CM will send a referral to [employer] for insurance support. He will be driven home via private vehicle, and will follow up with his PCP and discharge plan of care. CM will continue to follow. 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 Father No problems noted. Sister No problems noted. Sister No problems noted. Sister No problems noted. Sister No problems noted. Grandfather Diabetes Heart disease Grandfather Personal history of malignant neoplasm Grandmother Personal history of malignant neoplasm BREAST Grandmother Personal history of malignant neoplasm Social History Smoking/Tobacco Use Status: Former Tobacco Use tobacco type: cigarettes Quit Date: 06/09/79 Tobacco: How many years used: 40 Quit status: has quit before Second Hand Exposure: Yes Smoking risk assessment performed?: Yes Alcohol Intake: current Alcohol Intake frequency: a few times a month Alcohol type: beer Drug use: Occasionally Substance use type: other Details: Occasionally uses CBD in coffee. 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 Pets and animals: No Sexually active: No Do you think of yourself as: straight/heterosexual Current gender identity: male What is your relationship status?: How often do you talk on the phone with friends or family?: twice per week How often do you get together with friends or relatives?: once per week How often do you attend christianity or pentecostalism services?: 1-3 times per year Do you belong to any clubs or organized social groups?: no Panel score (0-1 are the most socially isolated patients): 1 What type of physical activity do you participate in: walking Duration: 30-45 minutes/day Frequency: 1-2 times per week Deena/Rastafarian: Confucianist Special deena needs: No Seatbelt use: sometimes Helmet use: No Drive intox or ride w/intox road oiling truck driver: No Do you feel safe at home: Yes Do you feel safe in your relationship?: Yes
[2023-04-22 19:22] VITALS: BP 132/84; PULSE 88; RESP 16; TEMP 36.7; O2SAT 95
[2023-04-22] MEDS: Atorvastatin 40 MG TAB 80 MG PO (20:02)
[2023-04-22 22:58] VITALS: BP 128/81; PULSE 87; RESP 16; TEMP 36.9; O2SAT 99
[2023-04-23 03:16] VITALS: BP 114/75; PULSE 95; RESP 16; TEMP 37.3; O2SAT 94
[2023-04-23 07:03] VITALS: BP 130/80; PULSE 82; RESP 22; TEMP 37; O2SAT 97
[2023-04-23 07:40] LABS: PTT Activated 50.4 sec (23.6-32.8)
[2023-04-23] MEDS: Finasteride 5 MG TAB PO (08:30)
[2023-04-23] MEDS: Lisinopril 20 MG TAB PO (08:30)
[2023-04-23] MEDS: Apixaban 5 MG TAB 10 MG PO ×2 (08:30→20:19)
[2023-04-23] MEDS: Sertraline 100 MG TAB PO (08:30)
[2023-04-23] MEDS: Tamsulosin 0.4 MG CAPCR PO (08:30)
[2023-04-23] MEDS: Insulin Aspart 300 UNITS/3 ML PEN SC ×2 (08:30→11:56)
--- NOTE | 2023-04-23 09:28 | IN_ITS ---
PT Notes Visit Reasons: Deep vein thrombosis Physical Therapy Inpatient Initial Evaluation Date: 04/23/2023 Referring Doctor: Estevan Bernal MD PT Orders: PT CONSULT: Safety Consult for D/C. Patient lives [facility] the second [facility] of [facility] and is having difficulty walking Precautions: Fall. Standard. Activity as tolerated. Patient Profile/Admitting Diagnosis: Shadi is a 57-year-old male admitted on 04/21/2023 due to left leg pain and swelling. Patient was admitted same day for management of bilateral pulmonary embolism, history of ischemic medullary CVA with left-sided deficits, essential hypertension, hyperlipidemia, and type 2 diabetes mellitus. 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 Independent with all aspects of ADLs prior to surgery. Had an AFO that he stopped wearing on the left side 3 years ago. Equipment Owned/DME: None Subjective: Patient reported 6?7/10 pain in the left leg and foot with weight bearing. States that the swelling has not worsened nor receded since admission yesterday. Prefer to use a single-point cane with walking over front wheeled walker due to left grasp deficits. Objective: General Observation: Seated at edge of bed. Abnormal flexor synergy seen on l eft upper extremity. Swelling and mild erythema in left leg and foot. Mental Status: Alert and oriented as to person, place, time, and purpose. Able to pay attention, focus, and respond appropriately. Pain: As above Vital Signs: BP 130/80 mmHg, HR 82 bpm, O2 saturation 97% on RA ROM: Right Upper Extremity: Shoulder Flexion lacks the last 25 deg of AROM. Shoulder abduction lacks the last 25 deg of AROM. Elbow flexion WFL. Wrist flexion 5 degrees only, wrist in flexion synergy. Functional opening and closing of hand sevrely impaired. Left Upper Extremity: Shoulder Flexion allows about 30 degrees actively. Shoulder abduction allows about 30 degrees actively. Elbow flexion WFL. Wrist flexion WFL. Functional opening and closing of hand WFL. Right Lower Extremity: Hip flexion WFL. Hip abduction WFL. Knee flexion WFL. Ankle dorsiflexion to neutral only. Ankle plantarflexion WFL. Left Lower Extremity: Hip flexion lacks the last 25% deg actively. Hip abduction lacks the last 25% deg actively. Knee flexion 30 deg to 90 degrees. Knee extension -30 degrees. Ankle dorsiflexion absent. Ankle plantarflexion 10 degrees. Strength: Right Upper Extremity: Shoulder flexors 3-/5. Shoulder abductors 3-/5. Elbow flexors 4-/5. Elbow extensors 4-/5. Front End Wheel Loader Operator strong. Left Upper Extremity: Shoulder flexors 2-/5. Shoulder abductors 2-/5. Elbow flexors 2-/5. Elbow extensors 2-/5. Front End Wheel Loader Operator absent. Right Lower Extremity: Hip flexors 4-/5. Hip abductors 4-/5. Knee flexors 4-/5. Knee extensors 4-/5. Ankle dorsiflexors 3-/5. Ankle plantarflexors 4-/5. Left Lower Extremity: Hip flexors 3-/5. Hip abductors 3-/5. Knee flexors 3-/5. Knee extensors 3-/5. Ankle dorsiflexors 3-/5. Ankle plantarflexors 3-/5. Bed Mobility/Transfers: Rolling independent Supine to sit independent Sit to supine independent Sit to stand contact guard assist using SPC, cues provided for improved and safe movement sequence Stand to sit contact guard assist using SPC, cues provided for improved and safe movement sequence Bed to reclining chair contact guard assist using SPC, cues provided for improved and safe movement sequence Reclining chair to bed contact guard assist using SPC, cues provided for improved and safe movement sequence Gait: Facilitated safe and correct level surface ambulation using front wheel walker for the first 4 to 5 feet with impaired AD management due to lack of ability to release grasp on the left hand due to pre-existing left-sided weakness resulting increased pain reported left leg and foot as well as increased instability with walking. Patient performed a lot better using single-point cane on the right side which effectively offloaded and allowed for less pain reported on the left leg with weight bearing. Patient reported 7/10 pain in the left leg and foot throughout activity. Left knee unable to fully extend at mid stance on the left. Stairs: We will perform activity this afternoon with pre-medication for pain Balance: Static Sitting: Normal Dynamic Sitting: Normal Static Standing: Fair Dynamic Standing: Fair Special Tests: Mobility Limitations Standardized Measure [facility] AM-PAC 6 clicks Basic Mobility Inpatient Short Form: Raw Score: 20 CMS Score: 36% deficit Informed Consent/Education: Patient was instructed in purpose of PT consult and plan of care. Agreeable to proceed with established PT POC to achieve personal goals. ASSESSMENT: Pre-existing L-sided weakness limited ability of patient to safely perform mobility performance for today's assessment. Needed one seated rest to minimize pain report. Held off on stairs training in November 08 high pain level. Will plan on seeing patient later this afternoon after he has been pre-medicated for pain. Worked much better using single-point cane on the right side as left hand dexterity is very much limited impairing walker management. Recommend OT evaluation to address persistent left UE weakness and dexterity loss. Patient presents with clinical signs and symptoms consistent with current/admitting diagnoses that have resulted to mobility limitations, gait instability, generalized weakness, and overall ADL decline as demonstrated by the following impairment level findings: 1. Decreased strength to L UE/LE major muscle groups 2. Impaired sitting/standing balance 3. Impaired activity tolerance 4. Limitation of joint range of motion in L UE/LE 5. Pain and swelling in L LE Impairments are contributing to the following functional limitations: 1. Decline in bed mobility skills 2. Decline in transfer skills 3. Difficulty with ambulation without assistive device and physical assistance 4. Increased completion time for mobility ADL performance 5. Increased risk for falls 6. Difficulty with managing steps alone safely Patient is assessed as a 42431 moderate complexity based on the following: History: 57-year-old male with past medical history as indicated above Examination: Demonstrable impairment in strength, balance, and mobility level with underlying impairments and functional limitations as exhibited above as well as deficit score of 36% utilizing the [facility] Mobility Inpatient Short Form Presentation: Evolving Decision Makin moderate complexity Goals: Goals X1 week 1. Supine-Sit independent 2. Sit-Supine independent 3. Sit-Stand independent 4. Stand-Sit independent with SPC 5. Bed-Chair independent with SPC 6. Chair-Bed independent with SPC 7. Independent gait on level surface with use of SPC for at least 300 feet without report of pain nor dyspnea 8. Independent stair negotiation while holding onto 1 rail for at least 12 steps without report of pain nor dyspnea 9. Independent with home exercise program 10. Good static and dynamic standing balance/tolerance Plan of Care/Treatment Plan: 1-2x/day, 7 days/week x 1 week. Plan of care has been reviewed with the KNIFE BLADE POLISHER providing the service under Physical Therapy direction. Initiate Physical Therapy intervention for pain management as needed, strengthening, bed mobility, transfers, gait, stairs, balance training, and use of assistive device. DISCHARGE RECOMMENDATIONS: [] Home with no services [] [X] Home with services. Patient will benefit from home health PT services in order to progress mobility level using least restrictive assistive ambulatory device, assess home safety, identify additional equipment needs, and establish a functional maintenance program that will increase ability of patient to remain at home. [] Home with outpatient PT [] [] SNF for continued rehabilitation [] [] Snf Care [] [] SNF versus LTC based on ability to participate and progress [] TREATMENT CODE/TIME: 86960 x 28 minutes for 1 unit beginning at 9:28 AM. Thank you for the opportunity to participate in the care of this patient. Amie Lanier PT, DPT, CLT [facility] [place], [place]
[2023-04-23] MEDS: glipiZIDE 10 MG TAB PO ×2 (10:01→16:48)
[2023-04-23] MEDS: metFORMIN 500 MG TAB PO ×2 (10:01→16:48)
--- NOTE | 2023-04-23 10:39 | PGE_ITS ---
Date of Service Date of service: 04/23/23 Time of Service: 10:39 Assessment and Plan Assessment and plan (1) Bilateral pulmonary embolism: Status: Acute Assessment and plan: - Patient initially presented with left lower extremity pain which was subsequently found to be due to an extensive DVT -CTA also showed diffuse pulmonary emboli -However, patient is on room air and does not complain of any shortness of breath -proBNP pending, troponin negative -Follow-up echocardiogram -Started on heparin drip in the emergency department, continued through 04/23/2023 -Now on treatment dose Eliquis for 14 days (2) Deep vein thrombosis (DVT) of left lower extremity: Status: Acute Assessment and plan: - As noted above Qualifiers: Affected thrombotic vein of extremity: femoral Chronicity: acute Qualified Code(s): I82.412 - Acute embolism and thrombosis of left femoral vein (3) Cerebrovascular accident (CVA): Status: Chronic Assessment and plan: - History of CVA with left-sided deficit -Patient had been noncompliant with his medications -Will restart aspirin and statin Qualifiers: CVA mechanism: unspecified Qualified Code(s): I63.9 - Cerebral infarction, unspecified (4) Essential hypertension: Status: Acute Assessment and plan: - Has been noncompliant with medication regimen -Will restart lisinopril at 20 mg daily and uptitrate as needed (5) Hyperlipidemia: Status: Acute Assessment and plan: - As noted above Qualifiers: Hyperlipidemia type: unspecified Qualified Code(s): E78.5 - Hyperlipidemia, unspecified (6) Type 2 diabetes mellitus: Status: Chronic Assessment and plan: - Last hemoglobin A1c on November 29, 2022 was 6.2 -Patient has been noncompliant with his diabetic medications while in [place] for the last 7 weeks -Glucose 366 in the emergency department -We will start patient on sliding scale insulin and restart oral glucose regimen closer to discharge -HbA1c back up to 10.9 -Started metformin and glipizide today, will continue to assess blood sugar levels and to see if patient will continue require sliding scale and or long- acting insulin as well -Patient will see lining mechanic today Qualifiers: 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 He states that all the pain is tolerable at rest, it has been limiting his mobility which is why he is working with physical therapy. Additionally understands that we are continuing to work on his diabetes regimen. Exam Narrative Exam Narrative: Well-appearing older gentleman sitting up in the chair in no acute distress, AOx4, heart RRR, lungs CTAB, decreased strength in LLE as compared to right which is patients baseline, swelling and tenderness to palpation of LLE from the upper calf to the thigh Objective Last Vital Signs Temp 98.6 F 04/23/23 07:03 Pulse 82 04/23/23 07:03 Resp 22 04/23/23 07:03 BP 130/80 04/23/23 07:03 Pulse Ox 97 04/23/23 07:03 Laboratory Results - last 24 hr 04/22/23 04/22/23 04/23/23 11:53 18:00 06:30 APTT 54.0 H Cancelled 50.4 H Time Spent with Patient Time Spent with Patient: >50 minutes Time was spent: preparing to see the patient(eg.review tests), obtaining and/or reviewing separately otained hiistory, ordering medications,tests, procedures, referring, communicating with other health certified social workers in health care, indepentently int erpreting results, counseling the patient and care coordination
[2023-04-23 10:55] VITALS: BP 155/100; PULSE 92; RESP 22; TEMP 36.6; O2SAT 94
[2023-04-23] MEDS: Acetaminophen 325 MG TAB PO (11:56)
--- NOTE | 2023-04-23 13:32 | CMPROGNOTE_ITS ---
Date of service: 04/23/23 Time of Service: 13:32 Care Management Progress Note Progress Note Text Progress Note Text: S/O: Shadi was lying in bed when CM met with him. He stated that he is doing well today, and that he worked with PT this morning, and expects to see them again soon. He reported that he feels that he is improving, and that per MD, he will likely be discharged home tomorrow. He is agreeable to this plan. CM discussed HH PT vs o/p PT. He stated that he is not homebound normally, as he is very independent and drives himself to appointments. He will have a diabetic education consult. CM will continue to follow. A: Shadi is a 57 year old male admitted to [facility] on 04/21/23 for a DVT. P: Anticipate Shadi will return home when medically cleared. CM will send a referral to [facility] for insurance support. He will be driven home via private vehicle, and will follow up with his PCP and discharge plan of care. CM will continue to follow.
--- NOTE | 2023-04-23 13:46 | W.NUTRFU ---
Date of service: 04/23/23 Time of Service: 13:30 Nutrition Note NOTE: received consult re: diabetes education Mr Pak is a 57yo male with current poorly controlled diabetes. He has been seen by outpatient nutrition services years ago. He was admitted with bilateral pulmonary embolism, DVT of LLE with a PMH significant for HTN and HLD. His current A1c was 10.9% as of yesterday and his FBG in the 300's. Pt's glucose is managed with CHO consistent diet (also heart healthy), and ordered for 10mg glipized BID and 500mg metformin BID (these are his usual home diabetes meds). He also ordered for a sensitive SS insulin aspart based on AC and HS fingersticks. Estimated nutrition needs: 2200kcals for taylor mgt (MSJ equation - 250kcals), 95g protein (1g/kg), and 2600mL fluid (1mL per required kcal) Pt reports a history having high glucose, even when he was taking his diabetes meds. He felt they were not working so he stopped taking them and tried to eat better. He states he visited with his PCP last spring and was told his A1C was great and whatever he was doing to keep it up. Not sure of the accuracy of his history but reports being told he no longer had to take his diabetes meds and he mistakenly interpretted that as stop taking all your medications so he stopped - and that's when I think I had the stroke. Regardless, Mr pak lives alone and has had some instability in his housing situation. He makes his own meals and repots he usually relies on take out food instead of going to the grocery store - whether it's 20 bucks at [employer] or 20 bucks at the store, it's still costing the same. Although he did mention that he knows home-cooked foods are better food choices. I reviewed some information on carb choices, servings sizes to count and reviewed his goal of having 12-15 carbohydrate servings per day split over his meals and planned snacks as evenly as possible. I gave him my contact information and discussed booking an outpatient visit(s) for more aggressive education and meal planning support. I will also attempt to visit for follow up prior to discharge to reinforce these concepts and to also do any insulin teaching that needs to occur. At this time, considering pt's consistent hyperglycemia, I would suggest in addition to his oral meds, initiation of basal insulin - 24 units of insulin Glargine HS. Would also recommend 24 units Insulin Aspart as a TDD with 8 units per meal and a moderate SS insulin aspart for corrections. Time Spent in Nutritional Counseling and Treatment: 60 minutes
--- NOTE | 2023-04-23 14:35 | CHAPLAIN ---
Shadi was sitting up in the chair when I visited. He said he is aware that his hospitalization is because he wasn't taking his medicine and paying attend to his health. He is and lives along and needs to be able to walk of eight stairs to a landing, and then another eight stairs. He's been working with PT for this. Shadi knows Mirian Headley, a director call in the former [facility] and formerly one of our on-call chaplains. Shadi recently flew home from [place] and now has a blood clot in his leg. He had a stroke six years ago and can't use his left arm well. Since the blood clot, his right leg has become swollen and weaker, he said. I will continue to visit.
[2023-04-23 14:58] VITALS: BP 116/69; PULSE 84; RESP 22; TEMP 36.6; O2SAT 98
[2023-04-23] MEDS: Atorvastatin 40 MG TAB 80 MG PO (20:19)
[2023-04-23 20:25] VITALS: BP 151/87; PULSE 94; RESP 18; TEMP 37.2; O2SAT 96
[2023-04-23 22:42] VITALS: BP 151/80; PULSE 81; RESP 16; TEMP 37.8; O2SAT 97
[2023-04-24] VITALS (7 sets, daily range): BP systolic 120–154; BP diastolic 76–85; PULSE 78–87; RESP 18; TEMP 35.8–37.3; O2SAT 94–96
[2023-04-24 06:55] LABS: HCT 35.9 % (40.0-50.0); MCH 25.8 pg (27.0-33.0); MCHC 33.4 % (32.0-36.0); MCV 77 fL (80-95); MPV 10.4 fL (8.0-11.0); Platelet Count 193 10^3/uL (130-400); RBC 4.65 10^6/uL (4.36-5.78); RDW 12.7 % (11.8-14.1); RDW-SD 35.4 fL; WBC 7.82 10^3/uL (4.4-10.8)
[2023-04-24 07:07] LABS: PTT Activated 31.3 sec (23.6-32.8)
[2023-04-24 07:13] LABS: Anion Gap 9.8 mmol/L (3-11); BUN 16 mg/dL (7-18); CO2 24.2 mmol/L (21.0-32.0); CREATININE 0.9 mg/dL (0.70-1.30); Calcium 9.1 mg/dL (8.5-10.1); Chloride 100 mmol/L (98-107); Estimated GFR 98.38 (mL/min/1.73m2); Glucose 134 mg/dL (74-106); Potassium 3.5 mmol/L (3.5-5.1); Sodium 134 mmol/L (136-145)
[2023-04-24] MEDS: glipiZIDE 10 MG TAB PO ×2 (07:45→15:58)
[2023-04-24] MEDS: Finasteride 5 MG TAB PO (08:19)
[2023-04-24] MEDS: Sertraline 100 MG TAB PO (08:19)
[2023-04-24] MEDS: Tamsulosin 0.4 MG CAPCR PO (08:19)
[2023-04-24] MEDS: Lisinopril 20 MG TAB PO (08:19)
[2023-04-24] MEDS: metFORMIN 500 MG TAB PO ×2 (08:19→16:44)
[2023-04-24] MEDS: Apixaban 5 MG TAB 10 MG PO ×2 (08:20→20:45)
[2023-04-24] MEDS: Normal Saline Flush 10 ML SYR IVP ×2 (08:25→20:45)
[2023-04-24] MEDS: Insulin Aspart 300 UNITS/3 ML PEN SC ×3 (11:38→22:17)
--- NOTE | 2023-04-24 15:19 | PDOC.CMDIS ---
Date of service: 04/24/23 Time of Service: 15:19 LACE Index Scoring Tool Questions: Length of Stay (in days): 3 Was the patient admitted via the E.D.?: Yes Comorbidities: Cerebrovascular Disease and Diabetes w/o Complication E.D. Visits: 1 Answers: Total Score: 9 Risk of Readmission: Low Risk Care Management Discharge Plan Reason for Hospitalization: DVT Discharge Plan: Shadi will return home with new orders for HH PT, with a plan to transition to outpatient PT once he is able to maneuver stairs. He will be driven home via private vehicle. He will follow up with his PCP and discharge plan of care. He is happy to be going home. Patient/Family Education Needs: Review discharge instructions and limitations, discussion of self care needs including ask me three. Services Needed at Discharge: Home Health Care Services (HH PT)
--- NOTE | 2023-04-24 15:28 | W.PM.DS.N ---
DS: Diagnosis Discharge Diagnosis (1) Bilateral pulmonary embolism: Status: Acute (2) Deep vein thrombosis (DVT) of left lower extremity: Status: Acute (3) Cerebrovascular accident (CVA): Status: Chronic (4) Essential hypertension: Status: Acute (5) Hyperlipidemia: Status: Acute (6) Type 2 diabetes mellitus: Status: Chronic Discharge Plan Disposition Patient Disposition: Home Condition: Good Discharge Details Reason For Visit: DVT Admit Date/Time: 04/21/23 11:46 Admit Provider: Estevan Bernal Attending Provider: Estevan Bernal Primary Care Provider: Cruz Das Hospital Course Hospital Course: Patient presented with LLL pain and swelling that was found to be due to a DVT with multiple small PEs but without oxygen requirement. He was on heparin drip for 48hrs and then transition to Eliquis. Additionally, his antihypertensives and diabetes medications were restarted were monitored. Therefore, was determined the patient was stable for discharge home Home Meds and New Rx's Prescriptions: New Eliquis 5 mg Tablet 5 mg PO BID Qty: 204 0RF Rx Instructions: Please take 2 tabs BID through 04/29, followed by 1 tab BID Eliquis DVT-PE Treat 30D Start 5 mg (74 tabs) tablets,dose pack See Rx Instructions .ROUTE .COMPLEX Qty: 1 0RF Rx Instructions: orally per package directions atorvastatin 40 mg Tablet 80 mg PO QPM Qty: 60 0RF metformin 500 mg Tablet 500 mg PO BID@0800,1700 Qty: 120 0RF lisinopril 20 mg Tablet 20 mg PO DAILY Qty: 60 0RF glipizide 10 mg Tablet 10 mg PO BID@0730,1630 Qty: 120 0RF sertraline 100 mg Tablet 100 mg PO DAILY Qty: 60 0RF tamsulosin 0.4 mg Capsule 0.4 mg PO DAILY Qty: 60 0RF hydrocodone-acetaminophen 7.5-325 mg Tablet 1 tab PO Q6H PRN PRNQty: 10 0RF Discontinued aspirin 325 mg tablet 325 mg PO DAILY Qty: 90 3RF polyethylene glycol 3350 17 gram powder in packet 17 g PO DAILY PRN PRN (Reason: constipation) Qty: 1 11RF metformin 500 mg tablet extended release 24 hr 500 mg PO BID Qty: 180 3RF tamsulosin [Flomax] 0.4 mg capsule 0.8 mg PO DAILY Qty: 180 3RF lisinopril 40 mg tablet 40 mg PO DAILY Qty: 90 3RF glipizide 10 mg tablet extended release 24hr 10 mg PO DAILY Qty: 90 2RF sertraline 100 mg tablet 200 mg PO DAILY Qty: 180 3RF atorvastatin 80 mg tablet 80 mg PO QPM Qty: 90 3RF naproxen 250 mg tablet 250 - 500 mg PO BID PRN (Reason: Moderate pain or swelling) Qty: 60 6RF finasteride 5 mg tablet 5 mg PO DAILY Qty: 90 3RF No Action (DME) FreeStyle Josafat 2 Mccracken Misc See Rx Instructions .ROUTE .MEDSUPPLY Qty: 1 0RF Rx Instructions: As directed (DME) FreeStyle Josafat 2 Sensor Kit See Rx Instructions .Route Qty: 6 3RF Rx Instructions: As directed (DME) Blood Glucose Test strip 1 ea Miscellaneous QID Qty: 400 12RF Rx Instructions: FOR ONE TOUCH ULTRA BLUE METER. PT USES INSULIN. TESTS QID AND PRN. DIAGNOSIS CODE E11.65 (DME) lancets 28 gauge misc 1 ea Miscellaneous QID Qty: 400 12RF Rx Instructions: 4X/day.SOFT ULTRA MINI. DIAGNOSIS CODE E11.65 Discharge Instructions Instructions: Pulmonary Embolism (DC), Deep Vein Thrombosis (DC), Type 2 Diabetes Management for Adults (DC) Activity:: Activity as Tolerated Equipment/Supplies:: Blood Glucose Monitor Diet:: As Tolerated Discharge Orders Discharge Orders: Discharge Order (Routine); Ordered 04/24/23 Ordered By: Estevan Bernal DS: Data Vitals/I&O Vitals and I&O: Vital Signs Temperature 97.0 F L 04/24/23 11:32 Temperature Source Tympanic 04/24/23 11:32 Pulse 79 04/24/23 11:32 Pulse Rhythm Regular 04/24/23 11:19 Respiratory Rate 18 04/24/23 11:32 Respiratory Effort Normal 04/24/23 11:19 Respiratory Depth Normal 04/24/23 11:19 Respiratory Pattern Normal 04/24/23 11:19 Blood Pressure 129/77 04/24/23 11:32 Blood Pressure Mean 118 04/21/23 11:28 Blood Pressure Position Sitting 04/21/23 07:53 Pulse Oximetry 95 04/24/23 11:32 Oxygen Delivery Method Room Air 04/24/23 11:32 Oxygen Flow Rate 0 04/24/23 11:32 Pain Level 8 04/24/23 15:21 Intake & Output 04/23/23 04/24/23 04/24/23 17:59 05:59 17:59 Intake Total 198.158 / 198.158 400 / 598.158 Balance 198.158 / 198.158 400 / 598.158 Intake: IV 198.158 / 198.158 Oral 400 / 400 Other: Urine Color Yellow Yellow Urine Appearance Clear Clear Clear Comment unmeasured void Voiding Methods Toilet Toilet Toilet Data Completed and Pending Labs on day of discharge: Labs from last 24 hours 04/24/23 06:30 WBC 7.82 RBC 4.65 Hgb 12.0 L Hct 35.9 L MCV 77 L MCH 25.8 L MCHC 33.4 RDW 12.7 Plt Count 193 MPV 10.4 APTT 31.3 Sodium 134 L Potassium 3.5 Chloride 100 Carbon Dioxide 24.2 Anion Gap 9.8 BUN 16 Creatinine 0.9 Est GFR (CKD-EPI 2020) 98.38 Glucose 134 H Calcium 9.1 PFSH All Active Problems (Updated 04/21/23 @ 15:00 by Estevan Bernal MD) Bilateral pulmonary embolism (Acute) Deep vein thrombosis (DVT) of left lower extremity (Acute) Impingement syndrome of right shoulder (Acute) NPDR with macular edema (Acute) 05/26/19 [place] (L) EYE-kb 11/29/19 [place] B/L MEIL-kb BPH loc w urin obs/LUTS (Acute) History of alcoholism (Acute) and drug abuse; at age 28-30 Cerebrovascular accident (CVA) (Chronic 03/19/17) 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 Father No problems noted. Sister No problems noted. Sister No problems noted. Sister No problems noted. Sister No problems noted. Grandfather Diabetes Heart disease Grandfather Personal history of malignant neoplasm Grandmother Personal history of malignant neoplasm BREAST Grandmother Personal history of malignant neoplasm Social History Smoking/Tobacco Use Status: Former Tobacco Use tobacco type: cigarettes Quit Date: 06/09/79 Tobacco: How many years used: 40 Quit status: has quit before Second Hand Exposure: Yes Smoking risk assessment performed?: Yes Alcohol Intake: current Alcohol Intake frequency: a few times a month Alcohol type: beer Drug use: Occasionally Substance use type: other Details: Occasionally uses CBD in coffee. 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 Pets and animals: No Sexually active: No Do you think of yourself as: straight/heterosexual Current gender identity: male What is your relationship status?: How often do you talk on the phone with friends or family?: twice per week How often do you get together with friends or relatives?: once per week How often do you attend oriental orthodox or yarsani services?: 1-3 times per year Do you belong to any clubs or organized social groups?: no Panel score (0-1 are the most socially isolated patients): 1 What type of physical activity do you participate in: walking Duration: 30-45 minutes/day Frequency: 1-2 times per week Deena/Anglican: Latter Day Special deena needs: No Seatbelt use: sometimes Helmet use: No Drive intox or ride w/intox school bus driver/teacher assistant: No Do you feel safe at home: Yes Do you feel safe in your relationship?: Yes
--- NOTE | 2023-04-24 15:43 | W.PM.PROGNOT ---
Date of Service Date of service: 04/24/23 Time of Service: 15:44 Assessment and Plan Assessment and plan (1) Bilateral pulmonary embolism: Status: Acute Assessment and plan: - Patient initially presented with left lower extremity pain which was subsequently found to be due to an extensive DVT -CTA also showed diffuse pulmonary emboli -However, patient is on room air and does not complain of any shortness of breath -proBNP pending, troponin negative -Follow-up echocardiogram -Started on heparin drip in the emergency department, continued through 04/23/2023 -Now on treatment dose Eliquis for 7 days before transition to 5mg BID dose for a total of 3 months (2) Deep vein thrombosis (DVT) of left lower extremity: Status: Acute Assessment and plan: - As noted above Qualifiers: Affected thrombotic vein of extremity: femoral Chronicity: acute Qualified Code(s): I82.412 - Acute embolism and thrombosis of left femoral vein (3) Cerebrovascular accident (CVA): Status: Chronic Assessment and plan: - History of CVA with left-sided deficit -Patient had been noncompliant with his medications -Will restart aspirin and statin Qualifiers: CVA mechanism: unspecified Qualified Code(s): I63.9 - Cerebral infarction, unspecified (4) Essential hypertension: Status: Acute Assessment and plan: - Has been noncompliant with medication regimen -Will restart lisinopril at 20 mg daily and uptitrate as needed (5) Hyperlipidemia: Status: Acute Assessment and plan: - As noted above Qualifiers: Hyperlipidemia type: unspecified Qualified Code(s): E78.5 - Hyperlipidemia, unspecified (6) Type 2 diabetes mellitus: Status: Chronic Assessment and plan: - Last hemoglobin A1c on November 29, 2022 was 6.2 -Patient has been noncompliant with his diabetic medications while in [place] for the last 7 weeks -Glucose 366 in the emergency department -We will start patient on sliding scale insulin and restart oral glucose regimen closer to discharge -HbA1c back up to 10.9 -Started metformin and glipizide today, will continue to assess blood sugar levels and to see if patient will continue require sliding scale and or long-acting insulin as well -Patient will see clinical staff educator 04/23 -blood sugars more controlled Qualifiers: Diabetes mellitus termite control service representative insulin use: without termite control service representative use Diabetes mellitus complication status: with hyperglycemia Qualified Code(s): E11.65 - Type 2 diabetes mellitus with hyperglycemia Subjective Subjective Interval history since last seen: Patient states that he is feeling stronger today and was seen after walking the stairs with physical therapy. However, given that is later in the day, and he has no support at home he politely request to be discharged tomorrow morning to which we agreed. Exam Narrative Exam Narrative: Well-appearing older gentleman sitting up in the chair in no acute distress, AOx4, heart RRR, lungs CTAB, decreased strength in LLE as compared to right which is patients baseline, swelling and tenderness to palpation of LLE from the upper calf to the thigh Objective Last Vital Signs Temp 97.0 F L 04/24/23 11:32 Pulse 79 04/24/23 11:32 Resp 18 04/24/23 11:32 BP 129/77 04/24/23 11:32 Pulse Ox 95 04/24/23 11:32 Laboratory Results - last 24 hr 04/24/23 06:30 WBC 7.82 RBC 4.65 Hgb 12.0 L Hct 35.9 L MCV 77 L MCH 25.8 L MCHC 33.4 RDW 12.7 Plt Count 193 MPV 10.4 APTT 31.3 Sodium 134 L Potassium 3.5 Chloride 100 Carbon Dioxide 24.2 Anion Gap 9.8 BUN 16 Creatinine 0.9 Est GFR (CKD-EPI 2020) 98.38 Glucose 134 H Calcium 9.1 Time Spent with Patient Time Spent with Patient: >50 minutes Time was spent: preparing to see the patient(eg.review tests), obtaining and/or reviewing separately otained hiistory, ordering medications,tests, procedures, referring, communicating with other health vision care associate, indepentently interpreting results, counseling the patient and care coordination
[2023-04-24] MEDS: Acetaminophen 325 MG TAB PO (15:58)
--- NOTE | 2023-04-24 16:02 | PDOC.CMPRO ---
Date of service: 04/24/23 Time of Service: 16:02 Care Management Progress Note Progress Note Text Progress Note Text: S/O: Shadi was sitting up in his chair today when CM visited with him. He stated that he is doing well today, and that he is waiting for PT to work with him on the stairs. sent in a prescription for Eliquis; DIEGO followed up with Tori jung in [place], who did not have his insurance card up to date. DIEGO provided the insurance card; Tori stated that the prescription for three months would be around $662. CM faxed an eliquis coupon, which covered the first month for free. CM provided a warm hand off to the community outreach manager at his PCP office to support him with reducing the cost of eliquis in the future. Per MD, Shadi will likely be ready for discharge tomororw. CM will continue to follow. A: Shadi is a 57 year old male admitted to [facility] on 04/21/23 for a DVT. P: Anticipate Shadi will return home when medically cleared. CM will send a referral to [facility] for insurance support. He will be driven home via private vehicle, and will follow up with his PCP and discharge plan of care. CM will continue to follow.
--- NOTE | 2023-04-24 17:10 | PTTR_ITS ---
Date of service: 04/24/23 Time of Service: 14:59 PT Notes Visit Reasons: Deep vein thrombosis Inpatient Physical Therapy Treatment Note [facility] Date: 04/26/23 PRECAUTIONS: Fall, standard, activity as tolerated SUBJECTIVE: Patient reports feeling fine while laying down, anticipates that moving will cause an uptick in his pain. Also reports that he asked for pain meds a while ago and hasn't received them yet. ROCKET TEST FIRE WORKER Mac notified. OBJECTIVE: supine in bed, agreeable to therapy. ? PAIN: Yes, LLE, 10/16 VITALS: monitored by nursing staff. ? BED MOBILITY/TRANSFERS? Rolling L/R: independent Supine-sit: independent ? Sit-supine: independent ? Sit-stand: independent ? Stand-sit: independent ? Bed-Chair: SBA ? Chair-bed: SBA Gait Training ([id number]): Direct one-on-one instruction and skilled instruction in: [] employing an assistive device [] modified weight-bearing status [] movement sequencing [] turning and movement with proper form [x] Provided verbal cues for equipment management and technique [] Provided instruction in gait pattern [x] Patient education regarding pacing and breathing techniques to maximize activity tolerance? GAIT? STAIRS: Patient ascends and descends 2 six inch stairs and 3 four inch stairs, seated rest, then 4 six inch stairs and 6 four inch stairs, seated rest, then ascends 13 six inch stairs, seated rest, then descends 13 six inch stairs.? Assistive Device: single railing ? Weight bearing: full Assist: CGA ? Deviation: Demonstrates step-to gait pattern. Otherwise, gait largely unremarkable. ? Therapeutic Exercises ([id number]): Direct one-on-one instruction in therapeutic exercises to develop strength, endurance, range of motion and flexibility. Ambulation ? Assistive Device: SPC? Weight bearing: full Assist: SBA ? Distance:? 250 feet ? Deviation: antalgic gait pattern, fluid use of SPC.? Provided skilled instruction in proper exercise performance Provided skilled manual cues to facilitate proper muscle recruitment and/or form. ASSESSMENT:? Patient reports feeling quite fatigued at end of treatment session. Also reports an uptick in pain, although this resolves with rest and resolves immediately and completely once leg is elevated. PLAN: Continue global stregnthening per plan of care until patient is medically cleared for discharge. TREATMENT CODE/TIME: 47 minutes beginning at 14:59
--- NOTE | 2023-04-24 18:44 | NUR.NOTE ---
Nursing Note: Pt arrived to floor from ED at this time, VSS, pt had no needs, lungs were clear, heart was normal; page two handed off to film processing shift supervisor Rn r/t sole stainer not able to do first assessment at this time.
[2023-04-24] MEDS: Atorvastatin 40 MG TAB 80 MG PO (20:45)
[2023-04-25] MEDS: Acetaminophen 325 MG TAB PO (02:16)
[2023-04-25] MEDS: Docusate Sodium 100 MG CAP PO (02:22)
[2023-04-25] MEDS: Calcium Carbonate *TUMS* 500 MG CHEW PO (03:06)
[2023-04-25 04:40] VITALS: BP 115/67; PULSE 86; RESP 18; TEMP 36.6; O2SAT 93
[2023-04-25 06:54] LABS: PTT Activated 29.9 sec (23.6-32.8)
[2023-04-25] MEDS: glipiZIDE 10 MG TAB PO (07:44)
[2023-04-25] MEDS: metFORMIN 500 MG TAB PO (07:44)
[2023-04-25 08:26] VITALS: BP 110/69; PULSE 79; RESP 15; TEMP 36; O2SAT 96
[2023-04-25] MEDS: Lisinopril 20 MG TAB PO (09:08)
[2023-04-25] MEDS: Finasteride 5 MG TAB PO (09:08)
[2023-04-25] MEDS: Tamsulosin 0.4 MG CAPCR PO (09:08)
[2023-04-25] MEDS: Sertraline 100 MG TAB PO (09:08)
[2023-04-25] MEDS: Apixaban 5 MG TAB 10 MG PO (09:09)
--- NOTE | 2023-04-25 09:42 | PDOC.CMDIS ---
Date of service: 04/25/23 Time of Service: 09:42 LACE Index Scoring Tool Questions: Length of Stay (in days): 4 - 6 Was the patient admitted via the E.D.?: Yes Comorbidities: Cerebrovascular Disease and Diabetes w/o Complication E.D. Visits: 0 Answers: Total Score: 9 Risk of Readmission: Low Risk Care Management Discharge Plan Reason for Hospitalization: DVT Discharge Plan: Shadi returned home today with new orders for PT. He will be driven home via private vehicle. He will follow up with his PCP and discharge plan of care. He was happy to be going home. Patient/Family Education Needs: Review discharge instructions and limitations, discussion of self care needs including ask me three Services Needed at Discharge: Home Health Care Services
--- NOTE | 2023-04-25 10:10 | PDOC.HHF2F ---
Home Health Referral Home Health Orders Clinical synopsis of why skilled professionals are needed: Right sided CVA with LLE residual defecit with superimposed LLE DVT causing pain and difficulty ambulating Medical diagnosis necessitation home health referral: Prior CVA, type II diabetes, HTN, DVT/PE Registered Nurse: Check all that apply Instruct on new or changed medication(s)/assess compliance: Ordered Occupational Therapist: Evaluate and treat for patient unable to perform ADL/IADL/self-care: Ordered Intake Assessor: Assist with community resources: Ordered Home Bound Status Requires the aid of supportive device (check all that apply): Walker Describe why leaving home would require a considerable and taxing effort: Side effects from pain medication (sedation/drowsiness) Encounter Date and Reason: I certify that a FTF encounter for this patient was performed on April 25, 2023 and that such encounter was related to the primary reason the patient requires home health services. The encounter was conducted in the following manner: By me as the certifying physician, BILL RECAPITULATION CLERK, PA or By an inpatient physician, BILL RECAPITULATION CLERK or PA during an inpatient stay who communicated findings to me, Certification And Authentication I certify that I composed the above information based on my clinical judgment relating to this patient's medical condition and, if applicable, clinical findings communicated to me by the NPP or inpatient physician who performed the FTF encounter. Name of Provider that will be monitoring home health services: Cruz Das
--- NOTE | 2023-04-25 10:16 | W.PM.DS.N ---
Date of service: 04/25/23 Time of Service: 10:17 DS: Diagnosis Discharge Diagnosis (1) Bilateral pulmonary embolism: Status: Acute Asessment and Plan: -Found on admission on CTA as well as extensive left lower extremity DVT -Completed 48 hours of heparin drip -Has since been transitioned to p.o. Eliquis -Given that this was provoked, only require anticoagulation for 3 months (2) Deep vein thrombosis (DVT) of left lower extremity: Status: Acute (3) Cerebrovascular accident (CVA): Status: Chronic (4) Essential hypertension: Status: Acute Asessment and Plan: - Noncompliant with antihypertension regimen on admission -Has been restarted on 20 mg lisinopril with good blood pressure control (5) Hyperlipidemia: Status: Acute Asessment and Plan: - Restarted 80 mg nightly statin (6) Type 2 diabetes mellitus: Status: Chronic Asessment and Plan: --Noncompliant with diabetes regimen -Started patient on 500 mg twice daily of metformin and 10 of glipizide with good blood glucose control Discharge Plan Disposition Patient Disposition: Home W/Home Health Services Condition: Good Discharge Details Reason For Visit: DVT Admit Date/Time: 04/21/23 11:46 Admit Provider: Estevan Bernal Attending Provider: Estevan Bernal Primary Care Provider: Cruz Das Hospital Course Hospital Course: Patient presented with LLL pain and swelling that was found to be due to a DVT with multiple small PEs but without oxygen requirement. He was on heparin drip for 48hrs and then transition to Eliquis. Additionally, his antihypertensives and diabetes medications were restarted were monitored. Therefore, was determined the patient was stable for discharge home Home Meds and New Rx's Prescriptions: New Eliquis 5 mg Tablet 5 mg PO BID Qty: 204 0RF Rx Instructions: Please take 2 tabs BID through 04/29, followed by 1 tab BID Eliquis DVT-PE Treat 30D Start 5 mg (74 tabs) tablets,dose pack See Rx Instructions .ROUTE .COMPLEX Qty: 1 0RF Rx Instructions: orally per package directions atorvastatin 40 mg Tablet 80 mg PO QPM Qty: 60 0RF metformin 500 mg Tablet 500 mg PO BID@0800,1700 Qty: 120 0RF lisinopril 20 mg Tablet 20 mg PO DAILY Qty: 60 0RF glipizide 10 mg Tablet 10 mg PO BID@0730,1630 Qty: 120 0RF sertraline 100 mg Tablet 100 mg PO DAILY Qty: 60 0RF tamsulosin 0.4 mg Capsule 0.4 mg PO DAILY Qty: 60 0RF hydrocodone-acetaminophen 7.5-325 mg Tablet 1 tab PO Q6H PRN PRNQty: 10 0RF Discontinued aspirin 325 mg tablet 325 mg PO DAILY Qty: 90 3RF polyethylene glycol 3350 17 gram powder in packet 17 g PO DAILY PRN PRN (Reason: constipation) Qty: 1 11RF metformin 500 mg tablet extended release 24 hr 500 mg PO BID Qty: 180 3RF tamsulosin [Flomax] 0.4 mg capsule 0.8 mg PO DAILY Qty: 180 3RF lisinopril 40 mg tablet 40 mg PO DAILY Qty: 90 3RF glipizide 10 mg tablet extended release 24hr 10 mg PO DAILY Qty: 90 2RF sertraline 100 mg tablet 200 mg PO DAILY Qty: 180 3RF atorvastatin 80 mg tablet 80 mg PO QPM Qty: 90 3RF naproxen 250 mg tablet 250 - 500 mg PO BID PRN (Reason: Moderate pain or swelling) Qty: 60 6RF finasteride 5 mg tablet 5 mg PO DAILY Qty: 90 3RF No Action (DME) FreeStyle Josafat 2 [place] Misc See Rx Instructions .ROUTE .MEDSUPPLY Qty: 1 0RF Rx Instructions: As directed (DME) FreeStyle Josafat 2 Sensor Kit See Rx Instructions .Route Qty: 6 3RF Rx Instructions: As directed (DME) Blood Glucose Test strip 1 ea Miscellaneous QID Qty: 400 12RF Rx Instructions: FOR ONE TOUCH ULTRA BLUE METER. PT USES INSULIN. TESTS QID AND PRN. DIAGNOSIS CODE E11.65 (DME) lancets 28 gauge misc 1 ea Miscellaneous QID Qty: 400 12RF Rx Instructions: 4X/day.SOFT ULTRA MINI. DIAGNOSIS CODE E11.65 Discharge Instructions Instructions: Pulmonary Embolism (DC), Deep Vein Thrombosis (DC), Type 2 Diabetes Management for Adults (DC) Activity:: Activity as Tolerated Equipment/Supplies:: Blood Glucose Monitor Diet:: As Tolerated Discharge Orders Discharge Orders: Discharge Order (Routine); Ordered 04/25/23 Ordered By: Estevan Bernal DS: Summary Time Spent with Patient providing and/or coordinating discharge services: Greater than 30 minutes Status at Discharge Functional status at discharge: independent ambulation Overall status at discharge: patient is back to baseline Mental Status: mental status grossly normal Speech and Movement: speech and movement normal Mood: congruent mood Affect: normal affect Exam Narrative Exam Narrative: Well-appearing older gentleman sitting up in the chair in no acute distress, AOx4, heart RRR, lungs CTAB, decreased strength in LLE as compared to right which is patients baseline, swelling and tenderness to palpation of LLE from the upper calf to the thigh Psych Mental Status: mental status grossly normal Speech and Movement: speech and movement normal Mood: congruent mood Affect: normal affect DS: Data Vitals/I&O Vitals and I&O: Vital Signs Temperature 96.8 F L 04/25/23 08:26 Temperature Source Tympanic 04/25/23 08:26 Pulse 79 04/25/23 08:26 Pulse Rhythm Regular 04/24/23 20:30 Respiratory Rate 15 04/25/23 08:26 Respiratory Effort Normal 04/24/23 20:30 Respiratory Depth Normal 04/24/23 20:30 Respiratory Pattern Normal 04/24/23 20:30 Blood Pressure 110/69 04/25/23 08:26 Blood Pressure Mean 118 04/21/23 11:28 Blood Pressure Position Sitting 04/21/23 07:53 Pulse Oximetry 96 04/25/23 08:26 Oxygen Delivery Method Room Air 04/25/23 08:26 Oxygen Flow Rate 0 04/25/23 08:26 Pain Level 3 04/25/23 08:26 Intake & Output 04/24/23 04/25/23 04/25/23 17:59 05:59 17:59 Intake Total 440 / 440 Balance 440 / 440 Intake: Oral 440 / 440 Other: Urine Color Yellow Urine Appearance Clear Comment BERNARDO, pt up to bathroom independently. 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 Father No problems noted. Sister No problems noted. Sister No problems noted. Sister No problems noted. Sister No problems noted. Grandfather Diabetes Heart disease Grandfather Personal history of malignant neoplasm Grandmother Personal history of malignant neoplasm BREAST Grandmother Personal history of malignant neoplasm Social History Smoking/Tobacco Use Status: Former Tobacco Use tobacco type: cigarettes Quit Date: 06/09/79 Tobacco: How many years used: 40 Quit status: has quit before Second Hand Exposure: Yes Smoking risk assessment performed?: Yes Alcohol Intake: current Alcohol Intake frequency: a few times a month Alcohol type: beer Drug use: Occasionally Substance use type: other Details: Occasionally uses CBD in coffee. Previously used crystal meth and cocaine in his late 20s; denies any relapse Caregiver/Support person: No Household members: none Housing: apartment Number of Children: 8 Communication Needs: None current occupation: [employer] Pets and animals: No Sexually active: No Do you think of yourself as: straight/heterosexual Current gender identity: male What is your relationship status?: How often do you talk on the phone with friends or family?: twice per week How often do you get together with friends or relatives?: once per week How often do you attend hinduism or congregational services?: 1-3 times per year Do you belong to any clubs or organized social groups?: no Panel score (0-1 are the most socially isolated patients): 1 What type of physical activity do you participate in: walking Duration: 30-45 minutes/day Frequency: 1-2 times per week Deena/Protestant: Catholic Special deena needs: No Seatbelt use: sometimes Helmet use: No Drive intox or ride w/intox jukebox route driver: No Do you feel safe at home: Yes Do you feel safe in your relationship?: Yes Time Spent with Patient Time Spent with Patient: <45 minutes Time was spent: preparing to see the patient(eg.review tests), obtaining and/or reviewing separately otained hiistory, referring, communicating with other health out of school hours care worker, indepentently interpreting results, counseling the patient and care coordination
== END 2023-04-25 12:50 | disposition home health service (06) | DRG 299 ==
LOC: ER 10:10 → SUR 11:41 → MS 12:25
PROVIDERS: Family Medicine; Admitting Provider Family Medicine; Emergency Provider Registered Nurse Emergency; PCP Nurse Practitioner Family; Visit Provider Family Medicine
DX: I82.412 Acute embolism and thrombosis of left femoral vein (principal); I26.99 Other pulmonary embolism without acute cor pulmonale; I69.354 Hemiplegia and hemiparesis following cerebral infarction affecting left non-dominant side; I10 Essential (primary) hypertension; E78.5 Hyperlipidemia, unspecified; E11.65 Type 2 diabetes mellitus with hyperglycemia; Z79.84 Long term (current) use of oral hypoglycemic drugs; Z79.82 Long term (current) use of aspirin; F41.9 Anxiety disorder, unspecified; F32.A Depression, unspecified; Z91.148 Patient's other noncompliance with medication regimen for other reason; N40.1 Benign prostatic hyperplasia with lower urinary tract symptoms; F10.21 Alcohol dependence, in remission; F19.11 Other psychoactive substance abuse, in remission; Z87.891 Personal history of nicotine dependence
CPT/HCPCS: 00123; 36415; 71275; 80048; 80053; 85027; 87635; 93306; 96360; 97110; 97116; 97161; 99285; 83036; 83735; 83880; 84443; 84484; 85025; 85610; 85730; 93971; 99223; 99233; 99239

== ENCOUNTER 2023-12-31 01:33 | Outpatient (CLI) | payer MEDICARE, SELFPAY ==
[2023-12-31 12:43] LABS: Calculated LDL 26 mg/dL (<100); Cholesterol 133 mg/dL (<200); HDL Cholesterol 37 mg/dL (40-60); Triglyceride 350 mg/dL (<150)
== END 2023-12-31 01:34 | disposition home or self-care (01) ==
LOC: LOS 01:33
PROVIDERS: PCP Nurse Practitioner Family; Visit Provider Nurse Practitioner Family
DX: E78.5 Hyperlipidemia, unspecified (principal)
CPT/HCPCS: 36415; 80061

== ENCOUNTER 2024-01-28 10:53 | Outpatient (REF) | payer MEDICARE, SELFPAY ==
[2024-01-28 13:59] LABS: COMMENT (LAB VIEW ONLY) 317.75 mg/dL; Microalb ug/mg Crea 10.9 ug/mg Cr
== END 2024-01-28 10:54 | disposition home or self-care (01) ==
LOC: LBN 10:53
PROVIDERS: PCP Nurse Practitioner Family; Visit Provider Nurse Practitioner Family
DX: E11.9 Type 2 diabetes mellitus without complications
CPT/HCPCS: 82043; 82570; 83036

== ENCOUNTER 2024-02-13 12:22 | Outpatient (CLI) | payer MEDICARE, SELFPAY ==
[2024-02-13 12:03] LABS: Hemoglobin A1C 8.3 % (<5.7)
== END 2024-02-13 12:23 | disposition home or self-care (01) ==
LOC: LBO 12:22
PROVIDERS: PCP Nurse Practitioner Family; Visit Provider Nurse Practitioner Family
DX: Z13.1 Encounter for screening for diabetes mellitus (principal)
CPT/HCPCS: 36415; 83036

== ENCOUNTER 2024-11-05 10:46 | Outpatient (CLI) | payer MEDICARE, SELFPAY ==
[2024-11-05 10:24] LABS: Anion Gap 10.6 mmol/L (3-11); BUN 16 mg/dL (7-18); CO2 28.4 mmol/L (21.0-32.0); CREATININE 1.2 mg/dL (0.70-1.30); Calcium 9.3 mg/dL (8.5-10.1); Calculated LDL 40 mg/dL (<100); Chloride 97 mmol/L (98-107); Cholesterol 111 mg/dL (<200); Glucose 378 mg/dL (74-106); HDL Cholesterol 32 mg/dL (>or=40); Potassium 3.9 mmol/L (3.5-5.1); Sodium 136 mmol/L (136-145); Triglyceride 196 mg/dL (<150)
[2024-11-05 18:27] LABS: PSA, Screening 0.2 ng/mL (<=4.5)
== END 2024-11-05 10:47 | disposition home or self-care (01) ==
LOC: LBO 10:46
PROVIDERS: PCP Nurse Practitioner Family; Visit Provider Nurse Practitioner Family
DX: Z13.6 Encounter for screening for cardiovascular disorders (principal); Z12.5 Encounter for screening for malignant neoplasm of prostate; Z13.1 Encounter for screening for diabetes mellitus
CPT/HCPCS: 36415; 80048; 80061; 84153